=== PATIENT | female | born 1990 | race Caucasian/White ===

== ENCOUNTER 2020-09-09 08:12 | Emergency (ER) | payer OTHER, SELFPAY ==
--- NOTE | ~2020-09-09 | US_ITS ---
EXAMINATION: US ABDOMEN LIMITED CLINICAL INFORMATION: Right upper quadrant pain. COMPARISON: Ultrasound abdomen 12/03/2018 TECHNIQUE: Real-time imaging of the right upper quadrant abdominal viscera. FINDINGS: PANCREAS: Normal. LIVER: Normal. The liver is normal in size. The liver contour is normal. Parenchymal echogenicity is normal. No focal hepatic lesion. There is no intrahepatic biliary duct dilatation seen. GALLBLADDER: Normal. The gallbladder is physiologically distended without evidence of stones, sludge, polyps, wall thickening or pericholecystic fluid. COMMON BILE DUCT: Normal in caliber measuring 0.3 cm in diameter. RIGHT KIDNEY: Normal. No hydronephrosis. No renal calculi or focal parenchymal lesions. The kidney measures 10.7 cm in maximum dimension. FREE FLUID: None. US/US abdomen limited IMPRESSION: Normal study.
[2020-09-09 08:20] VITALS: BP 110/80; BP 130/78; PULSE 60; PULSE 70; RESP 20; TEMP 36.6; O2SAT 100; BMI 34.7
--- NOTE | 2020-09-09 09:10 | ED_ITS ---
HPI - Nausea/Vomiting/Diarrhea General Chief complaint: Nausea/Vomiting/Diarrhea Stated complaint: NAUSEA AND VOMITING Time Seen by Provider: 09/09/20 09:05 Source: patient Mode of arrival: ambulatory Limitations: no limitations History of Present Illness HPI Narrative: 30-year-old female previously healthy here with complaints of nausea, vomiting, upper abdominal pain after eating pizza last evening. No diarrhea, urinary symptoms, fevers, chills. MD elicited complaint: nausea, vomiting and abdominal pain Associated nausea: Yes Related Data Previous Rx's Medication Instructions Recorded omeprazole 40 mg PO DAILY #30 cap 09/09/20 ondansetron 4 mg PO Q6H PRN #10 tab 09/09/20 sucralfate [Carafate] 1 g PO AC #20 tab 09/09/20 Allergies Allergy/AdvReac Type Severity Reaction Status Date / Time bee pollen [BEE STINGS] Allergy Unknown SWELLING Verified 09/09/20 08:24 Review of Systems Review of Systems: Yes all other systems are reviewed and are negative Constitutional: Constitutional: Reports no additional constitutional complaints, Denies body ache(s), Denies chills, Denies fever(s), Denies headache(s) and Denies weakness Eyes: Eyes: Reports no additional eye complaints and Denies change in vision ENT: Reports system reviewed and no additional complaints, except as documented, Denies dizziness, Denies headache(s), Denies nasal congestion, Denies nasal discharge and Denies neck pain Cardiovascular: Cardiovascular: Reports no additional cardiovascular complaints, Denies chest pain, Denies leg edema and Denies dyspnea Respiratory: Respiratory: Reports no additional respiratory complaints, Denies cough and Denies dyspnea Gastrointestinal: Gastrointestinal: Reports no additional gastrointestinal complaints, Reports abdominal pain, Denies diarrhea, Reports nausea and Reports vomiting Genitourinary: Genitourinary: Reports no additional female genitourinary complaints and Denies urinary incontinence Musculoskeletal: Musculoskeletal: Reports no additional musculoskeletal complaints, Denies back pain, Denies arthralgias, Denies joint swelling, Denies neck pain, Denies numbness and Denies tingling Integumentary/Breasts: Skin/Breast: Reports system reviewed and no additional complaints, except as docu and Denies rash Neurologic: Reports system reviewed and no additional complaints, except as documented, Denies Abnormal speech present, Denies dizziness, Denies head ache(s), Denies numbness, Denies tingling and Denies weakness PMFSH Past Medical History Attestation statement: The following information was validated with the patient. Source: old records reviewed and nursing notes reviewed Medical History Asthma Social History Social History Alcohol intake: never Smoking Status: Light tobacco smoker Use of substances other than those prescribed or required for medical reasons: Yes Substance Use Type: Marijuana Advance Directives: Yes Advance Directives Information Provided: No Advance Directives on File: No Physical Exam Vital Signs: Vital Signs: Last Vital Signs Temp 97.9 F 09/09/20 11:43 Pulse 54 09/09/20 13:57 Resp 17 09/09/20 13:57 BP 101/40 L 09/09/20 13:57 Pulse Ox 99 09/09/20 13:57 Body Mass Index 34.7 Const: General: cooperative, healthy appearing, comfortable and no acute distress Orientation/consciousness: patient oriented x3 Limitations: no limitations HENMT: Head: Yes normal to inspection Ears: hearing grossly normal bilaterally General nose exam: Normal external nose present Face and sinus: Yes normal facial exam Mouth: Normal oral and palatal mucosa present Throat: Yes posterior oropharynx normal Eyes: General: appearance normal, both eyes and all related structures Pupils: Equal, round and reactive pupils present Neck: Neck: Yes normal visual inspection Chest: Chest palpation & inspection: normal inspection of the chest Resp: Effort & Inspection: normal respiratory effort Auscultation: clear to auscultation bilaterally Cardio: Rate: regular rate Rhythm: regular rhythm Peripheral pulses: Peripheral pulses 2+ throughout GI: Inspection: Yes normal to inspection Palpation (GI): Soft to palpation and Tenderness to palpation present (GI) in the epigastrum, in the LUQ and in the RUQ; with no rebound tenderness Auscultation: normal bowel sounds Back/Spine/Pelvis: Thoracic/Lumbar Spine: thoracic and lumbar spine normal to inspection Skin: General skin exam: no rashes or lesions noted Neuro: General: patient oriented x3, no focal motor deficits and normal sensation to monofilament Cranial nerves: Yes Equal, round and reactive pupils present Cognition (Neuro): normal cognition Speech: No Abnormal speech present Gait exam (Neuro): Normal gait present Motor exam (neuro): 5/5 motor strength present throughout Extrem: General: Yes normal to inspection Course Course Course Narrative: [age] year female here with nausea, vomiting, upper abdominal pain after eating pizza last evening. No other complaints. On exam has mild tenderness in the upper quadrants bilaterally with no rebound or guarding. Is vomiting. Will need labs, UA, IV fluids, ppi, antiemetic and analgesia and reassessment. 1010-Continued pain and vomiting. Will repeat antiemetic, check US to r/o acute michael. 1200-ultrasound negative for acute cholecystitis. Patient has had additional round of vomiting. 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 She does smoke marijuana daily. She was taking a PPI but is no longer taking this. Will repeat dose of antiemetic and re-assess. 1700-patient feeling improved. Tolerating claudine checo and apple juice. Likely gastritis versus cyclic vomiting. Will restart patient on her PPI per her request. Referred to GI for follow-up Reviewed worrisome signs and symptoms and when to return to the emergency department. Comfortable discharge home. MDM - Nausea/Vomiting/Diarrhea MDM Narrative Medical decision making narrative: Gastritis, gastroenteritis, pancreatitis, cholecystitis Medical Records Attestation: I reviewed the patient's medical records. Lab Data Attestation: I reviewed the patient's lab results. Result diagrams: 09/09/20 09:42 09/09/20 09:42 Labs: Lab Results 09/09/20 09/09/20 09/09/20 Range/Units 09:42 09:42 11:39 WBC 11.6 H (4.8-10.8) X10*3/uL RBC 4.23 (4.20-5.50) X10*6/uL Hgb 13.3 (12.0-16.0) g/dl Hct 38.4 (37-47) % MCV 90.8 (80-98) fL MCH 31.4 (27.0-33.0) pg MCHC 34.6 (31.0-35.0) g/dl RDW 12.3 (11.0-16.0) % Plt Count 181 (160-400) X10*3/uL MPV 12.0 (9.4-12.3) fL Immature Gran % (Auto) 0.3 (0.0-0.4) % Neut % (Auto) 84.6 H (45-73) % Lymph % (Auto) 10.6 L (20-40) % [place] % (Auto) 3.9 (2-11) % Eos % (Auto) 0.3 (0-4) % Baso % (Auto) 0.3 (0-2) % Lymph # (Auto) 1.2 (1.2-4.9) X10*3/uL [place] # (Auto) 0.5 (0.1-1.2) X10*3/uL Eos # (Auto) 0.0 (0.0-0.4) X10*3/uL Baso # (Auto) 0.0 (0.0-0.2) X10*3/uL Abs Immat Gran (auto) 0.03 (0.00-0.03) X10*3/uL Absolute Neuts (auto) 9.8 H (2.0-8.3) X10*3/uL Absolute Nucleated RBC 0.000 (0.0-0.012) X10*3/uL Nucleated RBC % (auto) 0.0 (0.0-0.2) /100WBC Sodium 140 (135-145) mmol/L Potassium 3.7 (3.3-5.1) mmol/L Chloride 107 (96-108) mmol/L Carbon Dioxide 20 L (22-29) mmol/L Anion Gap 17 (12-20) BUN 11 (9-16) mg/dL Creatinine 0.76 (0.5-1.4) mg/dL Estim Creat Clear Calc 114.4 Estimated GFR > 60 Random Glucose 116 H (60-115) mg/dL Calcium 8.9 (8.4-10.2) mg/dL Total Bilirubin 0.4 (0.0-1.0) mg/dL Direct Bilirubin 0.2 (0.0-0.5) mg/dL AST 17 (5-31) U/L ALT 14 (0-31) U/L Alkaline Phosphatase 73 (39-117) U/L Total Protein 7.4 (6.5-8.0) g/dL Albumin 4.4 (3.5-5.0) g/dL Lipase 8 (8-78) U/L Urine Color YELLOW Urine Appearance CLEAR Urine pH 8.5 H (5.0-8.0) Ur Specific [place] 1.020 (1.005-1.025) Urine Protein NEG (NEG-TRACE) MG/DL Urine Glucose (UA) NEG (NEG) MG/DL Urine Ketones NEG (NEG) MG/DL Urine Blood 3+ H (NEG) Urine Nitrite NEG (NEG) Ur Leukocyte Esterase NEG (NEG) Urine RBC 15-29 H (0) /HPF Urine WBC 0-2 (0-4) /HPF Ur Squamous Epith Cells 1+ /LPF Urine Bacteria NONE /LPF Urine Mucus 1+ /LPF Urine Test (NEGATIVE) 09/09/20 Range/Units 11:39 WBC (4.8-10.8) X10*3/uL RBC (4.20-5.50) X10*6/uL Hgb (12.0-16.0) g/dl Hct (37-47) % MCV (80-98) fL MCH (27.0-33.0) pg MCHC (31.0-35.0) g/dl RDW (11.0-16.0) % Plt Count (160-400) X10*3/uL MPV (9.4-12.3) fL Immature Gran % (Auto) (0.0-0.4) % Neut % (Auto) (45-73) % Lymph % (Auto) (20-40) % [place] % (Auto) (2-11) % Eos % (Auto) (0-4) % Baso % (Auto) (0-2) % Lymph # (Auto) (1.2-4.9) X10*3/uL [place] # (Auto) (0.1-1.2) X10*3/uL Eos # (Auto) (0.0-0.4) X10*3/uL Baso # (Auto) (0.0-0.2) X10*3/uL Abs Immat Gran (auto) (0.00-0.03) X10*3/uL Absolute Neuts (auto) (2.0-8.3) X10*3/uL Absolute Nucleated RBC (0.0-0.012) X10*3/uL Nucleated RBC % (auto) (0.0-0.2) /100WBC Sodium (135-145) mmol/L Potassium (3.3-5.1) mmol/L Chloride (96-108) mmol/L Carbon Dioxide (22-29) mmol/L Anion Gap (12-20) BUN (9-16) mg/dL Creatinine (0.5-1.4) mg/dL Estim Creat Clear Calc Estimated GFR Random Glucose (60-115) mg/dL Calcium (8.4-10.2) mg/dL Total Bilirubin (0.0-1.0) mg/dL Direct Bilirubin (0.0-0.5) mg/dL AST (5-31) U/L ALT (0-31) U/L Alkaline Phosphatase (39-117) U/L Total Protein (6.5-8.0) g/dL Albumin (3.5-5.0) g/dL Lipase (8-78) U/L Urine Color Urine Appearance Urine pH (5.0-8.0) Ur Specific [place] (1.005-1.025) Urine Protein (NEG-TRACE) MG/DL Urine Glucose (UA) (NEG) MG/DL Urine Ketones (NEG) MG/DL Urine Blood (NEG) Urine Nitrite (NEG) Ur Leukocyte Esterase (NEG) Urine RBC (0) /HPF Urine WBC (0-4) /HPF Ur Squamous Epith Cells /LPF Urine Bacteria /LPF Urine Mucus /LPF Urine Test NEGATIVE (NEGATIVE) Imaging Data US - abdomen: Attestation: I personally reviewed and interpreted this imaging study as follows: Radiologist's impression: XAMINATION: US ABDOMEN LIMITED CLINICAL INFORMATION: Right upper quadrant pain. COMPARISON: Ultrasound abdomen 12/03/2018 TECHNIQUE: Real-time imaging of the right upper quadrant abdominal viscera. FINDINGS: PANCREAS: Normal. LIVER: Normal. The liver is normal in size. The liver contour is normal. Parenchymal echogenicity is normal. No focal hepatic lesion. There is no intrahepatic biliary duct dilatation seen. GALLBLADDER: Normal. The gallbladder is physiologically distended without evidence of stones, sludge, polyps, wall thickening or pericholecystic fluid. COMMON BILE DUCT: Normal in caliber measuring 0.3 cm in diameter. RIGHT KIDNEY: Normal. No hydronephrosis. No renal calculi or focal parenchymal lesions. The kidney measures 10.7 cm in maximum dimension. FREE FLUID: None. US/US abdomen limited IMPRESSION: Normal study. Discharge Plan Discharge Clinical Impression: Gastritis Qualifiers: Gastritis type: unspecified gastritis Chronicity: acute Gastritis bleeding: without bleeding Qualified Code(s): K29.00 - Acute gastritis without bleeding Patient Disposition: Home, Self-Care Instructions: Gastritis (ED) Additional Instructions: Start with clear liquids then advance diet as tolerated Follow-up with gi Prescriptions: New omeprazole 40 mg capsule,delayed release(DR/EC) 40 mg PO DAILY Qty: 30 RF: 0 sucralfate [Carafate] 1 gram tablet 1 g PO AC Qty: 20 RF: 0 ondansetron 4 mg tablet,disintegrating 4 mg PO Q6H PRN (Reason: nausea and vomiting) Qty: 10 RF: 0 Referrals: Christin Otero MD [Physician] - 2 days Interventions: ED Discharge Assessment Last Done: 09/09/20 17:22 Discharge Date/Time: 09/09/20 17:24
[2020-09-09] MEDS: ondansetron HCL 4 MG/2 ML VIAL IVPUSH (09:23)
[2020-09-09] MEDS: 0.9 % Sodium Chloride 1,000 ML 999 ML IV (09:23)
[2020-09-09] MEDS: Famotidine/PF 20 MG/2 ML VIAL IVPUSH (09:24)
[2020-09-09] MEDS: Morphine Sulfate 2 MG/ML CARTRIDGE IVPUSH (09:24)
[2020-09-09 09:47] LABS: MANUAL DIFF FLAG NO
[2020-09-09 09:53] LABS: Basophils Percent Auto 0.3 % (0-2); Eosinophils Percent Auto 0.3 % (0-4); Hematocrit 38.4 % (37-47); Hemoglobin 13.3 g/dl (12.0-16.0); Imm Gran Abs Auto 0.03 X10*3/uL (0.00-0.03); Imm Gran Pct Auto 0.3 % (0.0-0.4); Lymphocytes Absolute Auto 1.2 X10*3/uL (1.2-4.9); Lymphocytes Percent Auto 10.6 % (20-40); Mean Corpuscular HGB Conc 34.6 g/dl (31.0-35.0); Mean Corpuscular Hemoglobin 31.4 pg (27.0-33.0); Mean Corpuscular Volume 90.8 fL (80-98); Monocytes Absolute Auto 0.5 X10*3/uL (0.1-1.2); Monocytes Percent Auto 3.9 % (2-11); Neutrophils Absolute Auto 9.8 X10*3/uL (2.0-8.3); Neutrophils Percent Auto 84.6 % (45-73); Platelet Count 181 X10*3/uL (160-400); Red Blood Count 4.23 X10*6/uL (4.20-5.50); Red Cell Distribution Width 12.3 % (11.0-16.0); White Blood Count 11.6 X10*3/uL (4.8-10.8)
[2020-09-09 10:21] LABS: Alanine Aminotransferase 14 U/L (0-31); Albumin Level 4.4 g/dL (3.5-5.0); Alkaline Phosphatase 73 U/L (39-117); Anion Gap 17 (12-20); Aspartate Amino Transferase 17 U/L (5-31); Bilirubin Direct 0.2 mg/dL (0.0-0.5); Bilirubin Total 0.4 mg/dL (0.0-1.0); Blood Urea Nitrogen 11 mg/dL (9-16); Calcium 8.9 mg/dL (8.4-10.2); Carbon Dioxide 20 mmol/L (22-29); Chloride 107 mmol/L (96-108); Creatinine Clr Calc Pharmacy 114.4; Estimated Glomerular Filt Rate > 60; Glucose Random 116 mg/dL (60-115); Lipase 8 U/L (8-78); Potassium 3.7 mmol/L (3.3-5.1); Sodium 140 mmol/L (135-145); Total Protein 7.4 g/dL (6.5-8.0)
[2020-09-09] MEDS: diphenhydrAMINE HCL 50 MG/ML VIAL 25 MG IVPUSH (10:31)
[2020-09-09] MEDS: Metoclopramide HCl 10 MG/2 ML VIAL IVPUSH (10:32)
--- NOTE | 2020-09-09 10:34 | PC.NURSE ---
s/P initial med intervention pt continues to c/o abd discomfort and vomiting noted, nasir [employer] aware, more meds ordered/given. New order for abd u/s
[2020-09-09 11:43] VITALS: BP 142/73; PULSE 52; RESP 18; TEMP 36.6; O2SAT 100
[2020-09-09 11:54] LABS: Glucose Urine UA NEG (NEG); Leukocyte Esterase Urine NEG (NEG); Nitrite Urine NEG (NEG); PH 8.5 (5.0-8.0); Urine Blood 3+ (NEG); Urine Ketones NEG (NEG); Urine Protein NEG (NEG-TRACE)
[2020-09-09 11:57] LABS: Color Urine YELLOW; UPreg QC Valid YES; Urine Pregnancy NEGATIVE (NEGATIVE)
[2020-09-09 11:58] LABS: Appearance Urine CLEAR
[2020-09-09 12:02] LABS: Mucus Urine 1+ /LPF; Squamous Epithelial Cell Urine 1+ /LPF; WBC Urine 0-2 /HPF (0-4)
[2020-09-09] MEDS: LORazepam 2 MG/ML VIAL 1 MG IVPUSH (12:16)
[2020-09-09] MEDS: Haloperidol Lactate 5 MG/ML VIAL 1 MG IVPUSH (12:17)
--- NOTE | 2020-09-09 12:18 | PC.NURSE ---
pt medicated per order and re-educated about her iv access and to attempt to keep hand straight to let ivf run, will continue to monitor.
[2020-09-09 13:57] VITALS: BP 101/40; PULSE 54; RESP 17; O2SAT 99
--- NOTE | 2020-09-09 13:57 | PC.NURSE ---
patient currently sleeping, vitals wnl, will continue to monitor.
== END 2020-09-09 17:24 | disposition home or self-care (01) ==
PROVIDERS: Nurse Practitioner Family; Emergency Provider Internal Medicine; PCP Internal Medicine
DX: K29.00 Acute gastritis without bleeding (principal); R11.2 Nausea with vomiting, unspecified; R10.11 Right upper quadrant pain; F12.90 Cannabis use, unspecified, uncomplicated; F17.200 Nicotine dependence, unspecified, uncomplicated; Z79.899 Other long term (current) drug therapy; Z71.6 Tobacco abuse counseling
CPT/HCPCS: 36415; 76705; 80048; 80076; 81001; 81025; 83690; 85025; 96365; 96375; 99284; J1200; J2060; J2270; J2405; J2765

== ENCOUNTER 2020-11-20 09:26 | Emergency (ER) | payer OTHER, SELFPAY ==
--- NOTE | ~2020-11-20 | CT_ITS ---
EXAMINATION: CT ABDOMEN AND PELVIS WITH CONTRAST CLINICAL INFORMATION: epigastric pain, hematemesis, possible Lucero Kessler tear COMPARISON: None TECHNIQUE: Multidetector volumetric images were obtained from the superior aspect of the liver through the pubic symphysis following administration 85 mL of Omnipaque 350 intravenous contrast. Sagittal and coronal reformatted images were obtained on the technologist's workstation. Oral contrast: No This CT examination was performed using dose optimization techniques as appropriate, variously including the following: *Automated exposure control *Adjustment of mA and/or kV according to patient size (this includes techniques or standardized protocols for targeted exams where dose is matched to indication/reason for exam; i.e. extremities or head) *Use of iterative reconstruction technique DLP: 673 mGy-cm FINDINGS: LUNG BASES: The visualized lung bases are unremarkable. LIVER, GALLBLADDER, AND BILIARY TREE: The liver is normal in size, shape, and attenuation. No focal hepatic lesion or biliary ductal dilatation is present. The gallbladder is unremarkable with no evidence of radiopaque gallstones, gallbladder wall thickening, or obvious pericholecystic inflammatory changes. PANCREAS: Unremarkable. SPLEEN: Unremarkable. ADRENAL GLANDS: Unremarkable. KIDNEYS AND URETERS: The kidneys are normal in size, shape, and attenuation. No hydronephrosis, hydroureter, or calculi seen. No perinephric stranding. BLADDER: Unremarkable. GASTROINTESTINAL TRACT: The small and large bowel are unremarkable. The appendix is unremarkable. ABDOMINAL WALL: No significant hernia is appreciated. LYMPH NODES: Normal. VASCULAR: Unremarkable. PELVIC VISCERA: Uterus is anteverted. Small volume of fluid in the cul-de-sac which can be physiologic. There is no adnexal abnormality. OSSEOUS STRUCTURES: Unremarkable. CT/CT abdomen pelvis w con IMPRESSION: Normal CT scan abdomen pelvis.
--- NOTE | ~2020-11-20 | US_ITS ---
EXAMINATION: US ABDOMEN COMPLETE CLINICAL INFORMATION: Nausea and vomiting and upper abdominal pain. COMPARISON: Abdominal ultrasound dated 09/09/2020. TECHNIQUE: Real-time imaging of the abdominal viscera. FINDINGS: PANCREAS: Visualized portions unremarkable. ABDOMINAL AORTA: Visualized portions unremarkable. INFERIOR VENA CAVA: Visualized portions unremarkable. LIVER: Unremarkable. GALLBLADDER: Unremarkable. COMMON BILE DUCT: Normal in caliber measuring 0.4 cm in diameter. RIGHT KIDNEY: 10.1 cm. Unremarkable. LEFT KIDNEY: 10.0 cm. Unremarkable. SPLEEN: 11.0 cm. Unremarkable. FREE FLUID: None. US/US abdomen complete IMPRESSION: Unremarkable abdominal ultrasound. No significant change.
[2020-11-20 09:34] VITALS: BP 131/91; BP 143/69; PULSE 70; PULSE 75; RESP 18; TEMP 36.6; O2SAT 100; BMI 35.4
[2020-11-20] MEDS: Famotidine/PF 20 MG/2 ML VIAL IVPUSH (11:14)
[2020-11-20] MEDS: Ketorolac Tromethamine 30 MG/ML VIAL IVPUSH (11:14)
[2020-11-20] MEDS: 0.9 % Sodium Chloride 1,000 ML 999 ML IVCONT (11:14)
[2020-11-20] MEDS: Metoclopramide HCl 10 MG/2 ML VIAL IVPUSH (11:14)
[2020-11-20] MEDS: diphenhydrAMINE HCL 50 MG/ML VIAL IVPUSH (11:14)
--- NOTE | 2020-11-20 11:28 | ED_ITS ---
HPI - Abdominal Pain General Chief Complaint: Nausea/Vomiting/Diarrhea Stated Complaint: NAUSEA/VOMITING Time Seen by Provider: 11/20/20 09:31 Source: patient and EMS Mode of arrival: EMS Limitations: no limitations History of Present Illness HPI narrative: 30-year-old female with a past medical history of cannabinoid hyperemesis syndrome, anxiety, anemia and asthma presenting to the ED with complaints of sudden onset of nausea/vomiting with epigastric abdominal pain that started this morning. She reports she took DayQuil due to she was feeling nasal congestion. Denies any fevers, lightheadedness, dizziness, black or bloody emesis, chest pain or shortness of breath, radiation of the abdominal pain, back pain, dysuria, hematuria, black or bloody stools, diarrhea constipation, recent travel or sick contacts or any other symptoms complaints or concerns at this time. MD elicited complaint: abdominal pain Pertinent past history: other (Cannabinoid hyperemesis syndrome) Onset (ago): minute(s) (Prior to arrival) Pain Consistency: constant Location: epigastric Severity: moderate Quality: aching Radiation: none Migration to: no migration Exacerbating factors: vomiting Relieving factors: nothing Associated symptoms: nausea and vomiting Treatments prior to arrival: other (Received Zofran via EMS no improvement in symptoms) Related Data Home Medications Medication Instructions Recorded Confirmed albuterol sulfate 2 puff INHALATION Q4H PRN 11/20/20 11/20/20 famotidine 20 mg PO BID 11/20/20 11/20/20 fluoxetine 20 mg PO DAILY 11/20/20 11/20/20 hydroxyzine pamoate 25 mg PO TID PRN 11/20/20 11/20/20 loratadine [Allergy Relief 10 mg PO DAILY 11/20/20 11/20/20 (loratadine)] nortriptyline 10 mg PO BEDTIME 11/20/20 11/20/20 Previous Rx's Medication Instructions Recorded omeprazole 20 mg PO DAILY #30 cap 11/20/20 Allergies Allergy/AdvReac Type Severity Reaction Status Date / Time bee pollen [BEE STINGS] Allergy Unknown SWELLING Verified 09/09/20 08:24 Review of Systems Review of Systems Constitutional : No Weight loss, No Fever, No Chills, No Night Sweats, No Fatigue, NoMalaise ENT/Mouth: No ear pain, No sore throat, No Difficulty swallowing Cardiovascular : No Chest Pain, No SOB, No Dyspnea on Exertion, No Orthopnea, NoEdema, No Palpitations Respiratory : No Cough, No Sputum, No Wheezing, No Dyspnea Gastrointestinal : Positive nausea/vomiting/abdominal pain, No Diarrhea, No blood streaked emesis, No coffee-ground emesis, No gross hematemesis, No blood streak stool, No gross hematochezia, No Melena Genitourinary : No irregular bleeding, No Dysuria, No Urinary Frequency, No Hematuria,No Urinary Incontinence, No Urgency, No Flank Pain Musculoskeletal : No joint pain, No Myalgias, No Joint Swelling Skin : No Skin Lesions, No rash Neuro : No Weakness, No Numbness, No Paresthesias, No Loss of Consciousness, NoDizziness, No Headache Psych : No Social Issues, Heme/Lymph: No Bruising, No Bleeding,No Lymphadenopathy Endocrine : No Polyuria, No Polydipsia, No Temperature Intolerance Yes all other systems are reviewed and are negative Physical Exam Vital Signs: Vital Signs: Last Vital Signs Temp 98.4 F 11/20/20 14:51 Pulse 61 11/20/20 14:51 Resp 18 11/20/20 14:51 BP 141/76 H 11/20/20 14:51 Pulse Ox 98 11/20/20 14:51 Body Mass Index 35.4 vital signs have been reviewed as normal and appeared to be correct. Blood pressure hypertensive 143/69. Heart rate normal. Respiration rate normal. Temperature normal. Oxygen saturation normal. Appearance: Alert. Oriented X3. Anxious otherwise No other acute distress. Head: Normal external exam. Normocephalic. Eyes: PERRLA. EOMI. Conjunctiva and sclera normal. Eyelids normal. ENT: Pharynx normal. Uvula midline. Moist mucous membranes. No trismus noted. No drooling noted. No muffled voice noted. Neck: Normal inspection. Neck supple. FROM. No adenopathy. No meningeal signs. CVS: Normal heart rate and rhythm. Heart sound normal. No murmurs noted. Pulses normal throughout. Respiratory: No respiratory distress. Painless inspiration. Breath sounds normal. No wheezes/rales/rhonchi noted. Chest nontender. No accessory muscle usage noted or decreased air movement noted. Abdomen: Soft and moderate tenderness to palpation to epigastric/upper abdomen with guarding. Nondistended. No rigidity. Bowel sounds normal in all 4 quadrants. No distention noted. No organomegaly noted. No visible injury noted. No rebound tenderness. Negative Rovsing sign. Negative obturator's sign. Negative psoas sign. Negative Lui sign. Back: No CVA tenderness. Full range of motion noted. Skin: Skin warm and dry. Normal skin color. Normal skin turgor. No rashes/lesions/lacerations noted. Extremities: Extremities exhibit normal range of motion. Extremities nontender. Neuro: Oriented X 3. No motor deficit. No sensory deficit. Reflexes normal. Normal steady gait. Course Course Course Narrative: 14:10pm - labs return patient with an elevated white blood cell count at 13,000. Otherwise all other labs are within normal limits. Serum quant negative for . - patient told the nurse that she was vomiting dark brown emesis which changed from yellow/orange when she 1st arrived therefore went in and I performed a bedside stool occult and it was positive therefore sent 1 to the lab and it is also positive - therefore her abdomen ultrasound was normal although will obtain a CT scan of abdomen and pelvis with IV contrast in consult with Dr. Kessler gastroenterology for further recommendations. Patient understands agrees with this plan. Reevaluation(s) Reevaluation #1: - I consulted with Dr. Kessler a cashier credit and he recommended a repeat H&H and reported the patient's H&H is stable after the repeat then she can be safely discharged on omeprazole 20 mg daily and can follow-up as an outpatient therefore repeat CBC ordered at this time. - also still pending CT scan abdomen and pelvis with IV contrast. - patient has not vomited since Compazine/Reglan and morphine were given Time: 16:01 Reevaluation #2: - sign out to Dr. Dumont at this time pending repeat H&H in CT scan abdomen pelvis with IV contrast along with p.o. trial Time: 17:48 MDM - Abdominal Pain MDM Narrative Medical decision making narrative: 9:30am - 30-year-old female with a past medical history of cannabinoid hyperemesis syndrome, anxiety, anemia and asthma presenting to the ED with complaints of sudden onset of nausea/vomiting with epigastric abdominal pain that started this morning. Plan: Labs, abd US. Provide a L of IV fluids, 10 mg of Reglan, 50 mg of Benadryl and 30 mg of Toradol then re-evaluate. Medical Records Attestation: I reviewed the patient's medical records. Lab Data Attestation: I reviewed the patient's lab results. Result diagrams: 11/20/20 11:41 11/20/20 11:41 Labs: Lab Results 11/20/20 11/20/20 11/20/20 Range/Units 11:41 11:41 14:47 WBC 13.5 H (4.8-10.8) X10*3/uL RBC 4.51 (4.20-5.50) X10*6/uL Hgb 13.9 (12.0-16.0) g/dl Hct 40.4 (37-47) % MCV 89.6 (80-98) fL MCH 30.8 (27.0-33.0) pg MCHC 34.4 (31.0-35.0) g/dl RDW 12.6 (11.0-16.0) % Plt Count 189 (160-400) X10*3/uL MPV 11.8 (9.4-12.3) fL Immature Gran % (Auto) 0.4 (0.0-0.4) % Neut % (Auto) 87.4 H (45-73) % Lymph % (Auto) 8.3 L (20-40) % Thayer % (Auto) 3.5 (2-11) % Eos % (Auto) 0.1 (0-4) % Baso % (Auto) 0.3 (0-2) % Lymph # (Auto) 1.1 L (1.2-4.9) X10*3/uL Thayer # (Auto) 0.5 (0.1-1.2) X10*3/uL Eos # (Auto) 0.0 (0.0-0.4) X10*3/uL Baso # (Auto) 0.0 (0.0-0.2) X10*3/uL Abs Immat Gran (auto) 0.05 H (0.00-0.03) X10*3/uL Absolute Neuts (auto) 11.8 H (2.0-8.3) X10*3/uL Absolute Nucleated RBC 0.000 (0.0-0.012) X10*3/uL Nucleated RBC % (auto) 0.0 (0.0-0.2) /100WBC Sodium 136 (135-145) mmol/L Potassium 3.4 (3.3-5.1) mmol/L Chloride 104 (96-108) mmol/L Carbon Dioxide 22 (22-29) mmol/L Anion Gap 13 (12-20) BUN 7 L (9-16) mg/dL Creatinine 0.77 (0.5-1.4) mg/dL Estim Creat Clear Calc 114.2 Estimated GFR > 60 Random Glucose 108 (60-115) mg/dL Calcium 9.4 (8.4-10.2) mg/dL Magnesium 1.8 (1.6-2.6) mg/dL Total Bilirubin 0.8 (0.0-1.0) mg/dL AST 15 (5-31) U/L ALT 17 (0-31) U/L Alkaline Phosphatase 72 (39-117) U/L Total Protein 7.8 (6.5-8.0) g/dL Albumin 4.7 (3.5-5.0) g/dL Lipase 7 L (8-78) U/L Beta HCG, Quant < 2 mIU/mL Urine Color Urine Appearance Urine pH (5.0-8.0) Ur Specific [place] (1.005-1.025) Urine Protein (NEG-TRACE) MG/DL Urine Glucose (UA) (NEG) MG/DL Urine Ketones (NEG) MG/DL Urine Blood (NEG) Urine Nitrite (NEG) Ur Leukocyte Esterase (NEG) Urine RBC (0) /HPF Urine WBC (0-4) /HPF Ur Squamous Epith Cells /LPF Urine Bacteria /LPF Stool Occult Blood POSITIVE (NEGATIVE) 11/20/20 Range/Units 14:47 WBC (4.8-10.8) X10*3/uL RBC (4.20-5.50) X10*6/uL Hgb (12.0-16.0) g/dl Hct (37-47) % MCV (80-98) fL MCH (27.0-33.0) pg MCHC (31.0-35.0) g/dl RDW (11.0-16.0) % Plt Count (160-400) X10*3/uL MPV (9.4-12.3) fL Immature Gran % (Auto) (0.0-0.4) % Neut % (Auto) (45-73) % Lymph % (Auto) (20-40) % Thayer % (Auto) (2-11) % Eos % (Auto) (0-4) % Baso % (Auto) (0-2) % Lymph # (Auto) (1.2-4.9) X10*3/uL Thayer # (Auto) (0.1-1.2) X10*3/uL Eos # (Auto) (0.0-0.4) X10*3/uL Baso # (Auto) (0.0-0.2) X10*3/uL Abs Immat Gran (auto) (0.00-0.03) X10*3/uL Absolute Neuts (auto) (2.0-8.3) X10*3/uL Absolute Nucleated RBC (0.0-0.012) X10*3/uL Nucleated RBC % (auto) (0.0-0.2) /100WBC Sodium (135-145) mmol/L Potassium (3.3-5.1) mmol/L Chloride (96-108) mmol/L Carbon Dioxide (22-29) mmol/L Anion Gap (12-20) BUN (9-16) mg/dL Creatinine (0.5-1.4) mg/dL Estim Creat Clear Calc Estimated GFR Random Glucose (60-115) mg/dL Calcium (8.4-10.2) mg/dL Magnesium (1.6-2.6) mg/dL Total Bilirubin (0.0-1.0) mg/dL AST (5-31) U/L ALT (0-31) U/L Alkaline Phosphatase (39-117) U/L Total Protein (6.5-8.0) g/dL Albumin (3.5-5.0) g/dL Lipase (8-78) U/L Beta HCG, Quant mIU/mL Urine Color YELLOW Urine Appearance CLEAR Urine pH >= 9.0 H (5.0-8.0) Ur Specific [place] 1.015 (1.005-1.025) Urine Protein TRACE (NEG-TRACE) MG/DL Urine Glucose (UA) NEG (NEG) MG/DL Urine Ketones NEG (NEG) MG/DL Urine Blood 3+ H (NEG) Urine Nitrite NEG (NEG) Ur Leukocyte Esterase NEG (NEG) Urine RBC 15-29 H (0) /HPF Urine WBC 1-4 (0-4) /HPF Ur Squamous Epith Cells 4+ /LPF Urine Bacteria 2+ /LPF Stool Occult Blood (NEGATIVE) Imaging Data Abdominal ultrasound: Attestation: I personally reviewed and interpreted this imaging study as follows: Radiologist's impression: FINDINGS: PANCREAS: Visualized portions unremarkable. ABDOMINAL AORTA: Visualized portions unremarkable. INFERIOR VENA CAVA: Visualized portions unremarkable. LIVER: Unremarkable. GALLBLADDER: Unremarkable. COMMON BILE DUCT: Normal in caliber measuring 0.4 cm in diameter. RIGHT KIDNEY: 10.1 cm. Unremarkable. LEFT KIDNEY: 10.0 cm. Unremarkable. SPLEEN: 11.0 cm. Unremarkable. FREE FLUID: None. US/US abdomen complete IMPRESSION: Unremarkable abdominal ultrasound. No significant change. Critical Care Time Critical Care Time Critical Care Time: Yes Total Critical Care Time: 60 Attestation: I personally attest to this time spent taking care of the patient Discharge Plan Discharge Clinical Impression: Hematemesis/vomiting blood, Abdominal pain Instructions: Acute Nausea and Vomiting (ED), Abdominal Pain (ED), Hematemesis (ED) Prescriptions: New omeprazole 20 mg capsule,delayed release(DR/EC) 20 mg PO DAILY Qty: 30 RF: 0 No Action famotidine 20 mg tablet 20 mg PO BID RF: 0 nortriptyline 10 mg capsule 10 mg PO BEDTIME RF: 0 albuterol sulfate 90 mcg/actuation HFA aerosol inhaler 2 puff inhalation Q4H PRN (Reason: wheezing) RF: 0 fluoxetine 20 mg capsule 20 mg PO DAILY RF: 0 loratadine [Allergy Relief (loratadine)] 10 mg tablet 10 mg PO DAILY RF: 0 hydroxyzine pamoate 25 mg capsule 25 mg PO TID PRN (Reason: Anxiety) RF: 0 Referrals: Sergio Kessler [Physician] - 2 days Stand Alone Forms: Work/School Release Print Language: Turkish [facility] Past Medical History Attestation statement: The following information was validated with the patient. Medical History Asthma Social History Social History Alcohol intake: never Patient Tobacco Use Status: Never used Tobacco Use of substances other than those prescribed or required for medical reasons: No Substance Use Type: Marijuana Advance Directives: Yes Advance Directives Information Provided: No Advance Directives on File: No Patient : No
[2020-11-20 11:29] VITALS: BP 135/81; PULSE 58; RESP 18; TEMP 36.7; O2SAT 100
[2020-11-20 11:52] LABS: MANUAL DIFF FLAG NO
[2020-11-20 12:01] LABS: Basophils Percent Auto 0.3 % (0-2); Eosinophils Percent Auto 0.1 % (0-4); Hematocrit 40.4 % (37-47); Hemoglobin 13.9 g/dl (12.0-16.0); Imm Gran Abs Auto 0.05 X10*3/uL (0.00-0.03); Imm Gran Pct Auto 0.4 % (0.0-0.4); Lymphocytes Absolute Auto 1.1 X10*3/uL (1.2-4.9); Lymphocytes Percent Auto 8.3 % (20-40); Mean Corpuscular HGB Conc 34.4 g/dl (31.0-35.0); Mean Corpuscular Hemoglobin 30.8 pg (27.0-33.0); Mean Corpuscular Volume 89.6 fL (80-98); Mean Platelet Volume 11.8 fL (9.4-12.3); Monocytes Absolute Auto 0.5 X10*3/uL (0.1-1.2); Monocytes Percent Auto 3.5 % (2-11); Neutrophils Absolute Auto 11.8 X10*3/uL (2.0-8.3); Neutrophils Percent Auto 87.4 % (45-73); Platelet Count 189 X10*3/uL (160-400); Red Blood Count 4.51 X10*6/uL (4.20-5.50); Red Cell Distribution Width 12.6 % (11.0-16.0); White Blood Count 13.5 X10*3/uL (4.8-10.8)
[2020-11-20 12:23] LABS: Alanine Aminotransferase 17 U/L (0-31); Albumin Level 4.7 g/dL (3.5-5.0); Alkaline Phosphatase 72 U/L (39-117); Anion Gap 13 (12-20); Aspartate Amino Transferase 15 U/L (5-31); Bilirubin Total 0.8 mg/dL (0.0-1.0); Blood Urea Nitrogen 7 mg/dL (9-16); Calcium 9.4 mg/dL (8.4-10.2); Carbon Dioxide 22 mmol/L (22-29); Chloride 104 mmol/L (96-108); Creatinine Clr Calc Pharmacy 114.2; Estimated Glomerular Filt Rate > 60; Glucose Random 108 mg/dL (60-115); Magnesium 1.8 mg/dL (1.6-2.6); Potassium 3.4 mmol/L (3.3-5.1); Sodium 136 mmol/L (135-145); Total Protein 7.8 g/dL (6.5-8.0)
[2020-11-20 12:30] LABS: HCG Quantitative < 2 mIU/mL
[2020-11-20 12:47] LABS: Lipase 7 U/L (8-78)
[2020-11-20 14:43] VITALS: RESP 18
[2020-11-20] MEDS: Morphine Sulfate 4 MG/ML CARTRIDGE IVPUSH (14:43)
[2020-11-20] MEDS: Prochlorperazine Edisylate 10 MG/2 ML VIAL IVPUSH (14:43)
[2020-11-20 14:51] VITALS: BP 141/76; PULSE 61; RESP 18; TEMP 36.9; O2SAT 98
--- NOTE | 2020-11-20 15:13 | HE.PHANOTE ---
Pharmacy Consult ? Medication Reconciliation Pharmacy has completed the medication reconciliation and there were no significant medication issues requiring provider attention. Gretchen Lao, PharmD [phone]
[2020-11-20 15:16] LABS: OBS Int Ctl Valid YES; OBS1 POSITIVE (NEGATIVE)
[2020-11-20 15:20] LABS: Glucose Urine UA NEG (NEG); Leukocyte Esterase Urine NEG (NEG); Nitrite Urine NEG (NEG); PH >= 9.0 (5.0-8.0); Specific Gravity - Urine 1.015 (1.005-1.025); Urine Blood 3+ (NEG); Urine Ketones NEG (NEG); Urine Protein TRACE MG/DL (NEG-TRACE)
[2020-11-20 15:44] LABS: Appearance Urine CLEAR; Color Urine YELLOW
[2020-11-20 16:42] LABS: Bacteria Urine 2+ /LPF; Squamous Epithelial Cell Urine 4+ /LPF
[2020-11-20 17:45] LABS: Basophils Percent Auto 0.2 % (0-2); Hematocrit 39.8 % (37-47); Hemoglobin 13.7 g/dl (12.0-16.0); Imm Gran Abs Auto 0.02 X10*3/uL (0.00-0.03); Imm Gran Pct Auto 0.2 % (0.0-0.4); Lymphocytes Absolute Auto 0.6 X10*3/uL (1.2-4.9); Lymphocytes Percent Auto 6.3 % (20-40); MANUAL DIFF FLAG SCAN; Mean Corpuscular HGB Conc 34.4 g/dl (31.0-35.0); Mean Corpuscular Hemoglobin 30.9 pg (27.0-33.0); Mean Corpuscular Volume 89.8 fL (80-98); Mean Platelet Volume 11.9 fL (9.4-12.3); Monocytes Absolute Auto 0.2 X10*3/uL (0.1-1.2); Monocytes Percent Auto 1.7 % (2-11); Neutrophils Percent Auto 91.6 % (45-73); Platelet Count 190 X10*3/uL (160-400); Red Blood Count 4.43 X10*6/uL (4.20-5.50); Red Cell Distribution Width 12.6 % (11.0-16.0); SCAN SMEAR FLAG 1; White Blood Count 8.7 X10*3/uL (4.8-10.8)
[2020-11-20 17:47] LABS: INTERNATIONAL NORM RATIO 1.2 (0.9-1.1); Prothrombin Time 14.8 SEC (10.8-13.0)
[2020-11-20 18:00] VITALS: BP 125/77; PULSE 59; RESP 16; TEMP 36.9; O2SAT 99
[2020-11-20 18:17] LABS: COVID-19 Test Negative (Negative)
[2020-11-20 18:31] LABS: SLIDE REVIEW VERIFIED
[2020-11-20] MEDS: iohexoL 350 MG/ML 100 ML INFUS..BTL IV (21:38)
[2020-11-20] MEDS: Magnesium Hydrox/Alum Hydrox 30 ML ORAL.SUSP PO (22:01)
[2020-11-20] MEDS: Lidocaine HCl Viscous 2 % 15 ML SOLUTION MUCOUS MEM (22:01)
[2020-11-20 22:22] VITALS: BP 127/70; PULSE 55; RESP 16; TEMP 36.6; O2SAT 99
== END 2020-11-20 23:39 | disposition home or self-care (01) ==
PROVIDERS: Physician Assistant Medical; Emergency Provider Emergency Medicine
DX: K92.0 Hematemesis (principal); R19.7 Diarrhea, unspecified; F12.90 Cannabis use, unspecified, uncomplicated; Z79.899 Other long term (current) drug therapy; Z20.822 Contact with and (suspected) exposure to COVID-19
CPT/HCPCS: 36415; 74177; 76700; 80053; 81001; 81003; 82272; 83690; 83735; 84702; 85025; 85610; 87635; 96365; 96375; 99285; J1200; J1885; J2270; J2550; J2765; Q9967

== ENCOUNTER 2021-05-17 10:54 | Emergency (ER) | payer OTHER, SELFPAY ==
--- NOTE | ~2021-05-17 | US_ITS ---
EXAMINATION: US ABDOMEN LIMITED CLINICAL INFORMATION: Upper epigastric and right upper quadrant pain. COMPARISON: CT abdomen pelvis on 12/07/2020, abdominal ultrasound on 11/20/2020 TECHNIQUE: Real-time imaging of the right upper quadrant abdominal viscera. FINDINGS: PANCREAS: Normal. LIVER: Normal. The liver is normal in size. The liver contour is normal. Parenchymal echogenicity is normal. No focal hepatic lesion. There is no intrahepatic biliary duct dilatation seen. GALLBLADDER: Normal. The gallbladder is physiologically distended without evidence of stones, sludge, polyps, wall thickening or pericholecystic fluid. COMMON BILE DUCT: Normal in caliber measuring 0.4 cm in diameter. RIGHT KIDNEY: Normal. No hydronephrosis. No renal calculi or focal parenchymal lesions. The kidney measures 10.6 cm in maximum dimension. FREE FLUID: None. US/US abdomen limited IMPRESSION: Unremarkable right upper quadrant ultrasound.
[2021-05-17 11:01] VITALS: BP 130/84; PULSE 61; O2SAT 100
--- NOTE | 2021-05-17 11:05 | ED_ITS ---
HPI - Nausea/Vomiting/Diarrhea General Chief complaint: Nausea/Vomiting/Diarrhea Stated complaint: Nausea, Flu like symptoms Time Seen by Provider: 05/17/21 10:56 Source: patient and EMS Mode of arrival: EMS History of Present Illness HPI Narrative: 30-year-old female with a past medical history of asthma presenting to the ED complaining nausea, vomiting, epigastric abdominal pain and slight cough since this morning. Denies fever, chills, diarrhea, dysuria/hematuria, SOB/CP MD elicited complaint: nausea, vomiting and abdominal pain Related Data Home Medications Medication Instructions Recorded Confirmed albuterol sulfate 90 mcg/actuation 2 puff INHALATION Q4H PRN 11/20/20 11/20/20 aerosol inhaler famotidine 20 mg tablet 20 mg PO BID 11/20/20 11/20/20 fluoxetine 20 mg capsule 20 mg PO DAILY 11/20/20 11/20/20 hydroxyzine pamoate 25 mg capsule 25 mg PO TID PRN 11/20/20 11/20/20 loratadine 10 mg tablet (Allergy 10 mg PO DAILY 11/20/20 11/20/20 Relief (loratadine)) nortriptyline 10 mg capsule 10 mg PO BEDTIME 11/20/20 11/20/20 Previous Rx's Medication Instructions Recorded omeprazole 20 mg capsule,delayed 20 mg PO DAILY #30 cap 11/20/20 release aluminum-mag hydroxide-simethicone 5 ml PO 5XD PRN #30 ml 05/17/21 200 mg-200 mg-20 mg/5 mL oral susp (Maalox Advanced) famotidine 20 mg tablet (Pepcid) 20 mg PO DAILY #14 tab 05/17/21 ondansetron HCl 4 mg tablet 4 mg PO Q8H PRN #10 tab 05/17/21 (Zofran) Allergies Allergy/AdvReac Type Severity Reaction Status Date / Time bee pollen [BEE STINGS] Allergy Unknown SWELLING Verified 09/09/20 08:24 Review of Systems Review of Systems: Constitutional: No Fever, No Chills, +Fatigue, No Malaise ENT/Mouth: No Ear Pain, No Nasal Congestion, No sore throat, No Rhinorrhea Eyes: No Eye Pain, No Swelling, No Redness Cardiovascular: No Chest Pain, No SOB, No Dyspnea on Exertion, No Orthopnea, No Edema, No Palpitations Respiratory: + Cough, No Dyspnea Gastrointestinal: + Nausea, + Vomiting, No Diarrhea, No Constipation, + Abdominal pain Genitourinary: No Dysuria, No Urinary Frequency, No Hematuria, No Flank Pain, No Urinary Flow Changes, No Hesitancy Musculoskeletal: No joint pain, No Myalgias, No Joint Swelling Skin: No Skin Lesions, No rash Neuro: No Weakness, No Numbness, No Headache Yes all other systems are reviewed and are negative [facility] Past Medical History Attestation statement: The following information was validated with the patient. Medical History Asthma Social History Social History Alcohol intake: unknown Patient Tobacco Use Status: Never used Tobacco Use of substances other than those prescribed or required for medical reasons: Unknown Substance Use Type: Marijuana Advance Directives: No Advance Directives Information Provided: No Patient : No Physical Exam Vital Signs: Vital Signs: Last Vital Signs Temp 98.8 F 05/17/21 11:28 Pulse 58 05/17/21 11:28 Resp 18 05/17/21 11:28 BP 158/78 H 05/17/21 11:28 Pulse Ox 100 05/17/21 11:28 Body Mass Index 38.9 Const: General: cooperative, healthy appearing and no acute distress Orientation/consciousness: patient oriented x3 Limitations: no limitations HENMT: Head: Yes normal to inspection and Yes atraumatic Ears: hearing grossly normal bilaterally General nose exam: Normal external nose present Face and sinus: Yes normal facial exam Eyes: General: appearance normal, both eyes and all related structures EOM: EOMs intact bilaterally Neck: Neck: Yes normal visual inspection Resp: Effort & Inspection: normal respiratory effort Auscultation: clear to auscultation bilaterally, no rales, no rhonchi and no wheezes Cardio: Rate: regular rate Heart sounds: S1 normal heart sound present and S2 normal heart sound present GI: Inspection: Yes normal to inspection Palpation (GI): Soft to palpation, Tenderness to palpation present (GI) in the epigastrum, no guarding and not rigid : General: Yes no CVA tenderness Back/Spine/Pelvis: Back: no CVA tenderness Skin: Rashes: no rashes Wounds: no wounds Neuro: General: patient oriented x3 Gait exam (Neuro): Normal gait present Extrem: General: Yes normal to inspection and Yes no pedal edema Course Course Course Narrative: -1314--mild leukocytosis of 10.9, magnesium mildly low at 1.5 > p.o. repletion ordered, labs otherwise unremarkable -UA with chronic RBCs. COVID-19/influenza/RSV negative -1338--labs unremarkable. Results discussed will p.o. challenge in re-evaluate -1355--patient is still reporting persistent nausea/chills, abdomen soft with epigastric/RUQ tenderness to palpation obtain right upper quadrant, Benadryl and Reglan ordered -1455--US abdomen limited IMPRESSION: Unremarkable right upper quadrant ultrasound. -patient was able to tolerate p.o. water and saltines without vomiting. Discussed worrisome signs and symptoms and strict return precautions and needed follow-up with PCP/GI MDM - Nausea/Vomiting/Diarrhea MDM Narrative Medical decision making narrative: 30-year-old female with a past medical history of asthma presenting to the ED complaining nausea, vomiting, epigastric abdominal pain and slight cough since this morning. On exam vital signs stable, NAD/nontoxic, lungs CTA, abdomen soft with mild epigastric TTP, no rebound or guarding, no CVAT. Concern for viral syndrome/COVID-19 vs gastritis/GERD vs gastroenteritis vs pancreatitis. Lower concern for cholecystitis/cholelithia sis/appendicitis or diverticulitis Plan: COVID-19 testing, labs, UA, symptomatic remedies, p.o. challenge, re- evaluate Medical Records Attestation: I reviewed the patient's medical records. Lab Data Attestation: I reviewed the patient's lab results. Result diagrams: 05/17/21 12:18 05/17/21 12:18 Labs: Lab Results 05/17/21 05/17/21 05/17/21 Range/Units 11:15 11:15 11:15 WBC (4.8-10.8) X10*3/uL RBC (4.20-5.50) X10*6/uL Hgb (12.0-16.0) g/dl Hct (37.0-47.0) % MCV (80.0-98.0) fL MCH (27.0-33.0) pg MCHC (31.0-35.0) g/dl RDW (11.0-16.0) % Plt Count (160-400) X10*3/uL MPV (9.4-12.3) fL Immature Gran % (Auto) (0.0-0.4) % Neut % (Auto) (45-73) % Lymph % (Auto) (20-40) % [place] % (Auto) (2-11) % Eos % (Auto) (0-4) % Baso % (Auto) (0-2) % Lymph # (Auto) (1.2-4.9) X10*3/uL [place] # (Auto) (0.1-1.2) X10*3/uL Eos # (Auto) (0.0-0.4) X10*3/uL Baso # (Auto) (0.0-0.2) X10*3/uL Abs Immat Gran (auto) (0.00-0.03) X10*3/uL Absolute Neuts (auto) (2.0-8.3) x10*3/uL Absolute Nucleated RBC (0.0-0.012) X10*3/uL Nucleated RBC % (auto) (0.0-0.2) /100WBC Sodium (135-145) mmol/L Potassium (3.3-5.1) mmol/L Chloride (96-108) mmol/L Carbon Dioxide (22-29) mmol/L Anion Gap (12-20) BUN (9-16) mg/dL Creatinine (0.5-1.4) mg/dL Estim Creat Clear Calc Estimated GFR Random Glucose (60-115) mg/dL Calcium (8.4-10.2) mg/dL Magnesium (1.6-2.6) mg/dL Total Bilirubin (0.0-1.0) mg/dL Direct Bilirubin (0.0-0.5) mg/dL AST (5-31) U/L ALT (0-31) U/L Alkaline Phosphatase (39-117) U/L Total Protein (6.5-8.0) g/dL Albumin (3.5-5.0) g/dL Lipase (8-78) U/L Urine Color YELLOW Urine Appearance CLEAR Urine pH 8.0 (5.0-8.0) Ur Specific [place] 1.020 (1.005-1.025) Urine Protein TRACE (NEG-TRACE) MG/DL Urine Glucose (UA) NEG (NEG) MG/DL Urine Ketones NEG (NEG) MG/DL Urine Blood 3+ H (NEG) Urine Nitrite NEG (NEG) Ur Leukocyte Esterase NEG (NEG) Urine RBC 15-29 H (0) /HPF Urine WBC 0 (0-4) /HPF Ur Squamous Epith Cells 1+ /LPF Urine Bacteria 1+ /LPF Urine Test NEGATIVE (NEGATIVE) Influenza Type A (PCR) NEGATIVE (Negative) Influenza Type B (PCR) NEGATIVE (Negative) RSV RNA Qual (PCR) NEGATIVE (Negative) SARS-CoV-2 RNA (RT-PCR) NEGATIVE (Negative) 05/17/21 05/17/21 Range/Units 12:18 12:18 WBC 10.9 H (4.8-10.8) X10*3/uL RBC 4.41 (4.20-5.50) X10*6/uL Hgb 13.1 (12.0-16.0) g/dl Hct 38.8 (37.0-47.0) % MCV 88.0 (80.0-98.0) fL MCH 29.7 (27.0-33.0) pg MCHC 33.8 (31.0-35.0) g/dl RDW 13.1 (11.0-16.0) % Plt Count 220 (160-400) X10*3/uL MPV 11.2 (9.4-12.3) fL Immature Gran % (Auto) 0.3 (0.0-0.4) % Neut % (Auto) 89.8 H (45-73) % Lymph % (Auto) 7.9 L (20-40) % [place] % (Auto) 1.7 L (2-11) % Eos % (Auto) 0.0 (0-4) % Baso % (Auto) 0.3 (0-2) % Lymph # (Auto) 0.9 L (1.2-4.9) X10*3/uL [place] # (Auto) 0.2 (0.1-1.2) X10*3/uL Eos # (Auto) 0.0 (0.0-0.4) X10*3/uL Baso # (Auto) 0.0 (0.0-0.2) X10*3/uL Abs Immat Gran (auto) 0.03 (0.00-0.03) X10*3/uL Absolute Neuts (auto) 9.8 H (2.0-8.3) x10*3/uL Absolute Nucleated RBC 0.000 (0.0-0.012) X10*3/uL Nucleated RBC % (auto) 0.0 (0.0-0.2) /100WBC Sodium 137 (135-145) mmol/L Potassium 3.9 (3.3-5.1) mmol/L Chloride 104 (96-108) mmol/L Carbon Dioxide 22 (22-29) mmol/L Anion Gap 15 (12-20) BUN 10 (9-16) mg/dL Creatinine 0.78 (0.5-1.4) mg/dL Estim Creat Clear Calc 118.7 Estimated GFR > 60 Random Glucose 122 H (60-115) mg/dL Calcium 9.6 (8.4-10.2) mg/dL Magnesium 1.5 L (1.6-2.6) mg/dL Total Bilirubin 0.4 (0.0-1.0) mg/dL Direct Bilirubin 0.2 (0.0-0.5) mg/dL AST 16 (5-31) U/L ALT 15 (0-31) U/L Alkaline Phosphatase 80 (39-117) U/L Total Protein 8.0 (6.5-8.0) g/dL Albumin 4.7 (3.5-5.0) g/dL Lipase 5 L (8-78) U/L Urine Color Urine Appearance Urine pH (5.0-8.0) Ur Specific [place] (1.005-1.025) Urine Protein (NEG-TRACE) MG/DL Urine Glucose (UA) (NEG) MG/DL Urine Ketones (NEG) MG/DL Urine Blood (NEG) Urine Nitrite (NEG) Ur Leukocyte Esterase (NEG) Urine RBC (0) /HPF Urine WBC (0-4) /HPF Ur Squamous Epith Cells /LPF Urine Bacteria /LPF Urine Test (NEGATIVE) Influenza Type A (PCR) (Negative) Influenza Type B (PCR) (Negative) RSV RNA Qual (PCR) (Negative) SARS-CoV-2 RNA (RT-PCR) (Negative) Discharge Plan Discharge Clinical Impression: Nausea & vomiting Qualifiers: Vomiting type: unspecified Vomiting Intractability: non-intractable Qualified Code(s): R11.2 - Nausea with vomiting, unspecified Patient Disposition: Home, Self-Care Instructions: Acute Nausea and Vomiting (ED) Additional Instructions: Your blood work and urine were reassuring today in the emergency department Your ultrasound was unremarkable Zofran is at antinausea medication, take as needed Pepcid and Maalox will help with acid reduction/abdominal discomfort, take as prescribed Make sure staying hydrated If her symptoms persist or worsen, pain or nausea comes unbearable, you are unable to eat or drink please return to the emergency department Prescriptions: New ondansetron HCl [Zofran] 4 mg tablet 4 mg PO Q8H PRN (Reason: nausea and vomiting) Qty: 10 RF: 0 famotidine [Pepcid] 20 mg tablet 20 mg PO DAILY Qty: 14 RF: 0 alum-mag hydroxide-simeth [Maalox Advanced] 200-200-20 mg/5 mL suspension 5 ml PO 5XD PRN (Reason: dyspepsia) Qty: 30 RF: 0 No Action famotidine 20 mg tablet 20 mg PO BID RF: 0 nortriptyline 10 mg capsule 10 mg PO BEDTIME RF: 0 albuterol sulfate 90 mcg/actuation HFA aerosol inhaler 2 puff inhalation Q4H PRN (Reason: wheezing) RF: 0 fluoxetine 20 mg capsule 20 mg PO DAILY RF: 0 loratadine [Allergy Relief (loratadine)] 10 mg tablet 10 mg PO DAILY RF: 0 hydroxyzine pamoate 25 mg capsule 25 mg PO TID PRN (Reason: Anxiety) RF: 0 omeprazole 20 mg capsule,delayed release(DR/EC) 20 mg PO DAILY Qty: 30 RF: 0 Referrals: Manuelito Negron MD [Primary Care Provider] - 2 days
[2021-05-17 11:23] LABS: Appearance Urine CLEAR; Color Urine YELLOW; Glucose Urine UA NEG (NEG); Leukocyte Esterase Urine NEG (NEG); Nitrite Urine NEG (NEG); UACC Culture Trigger NO; Urine Blood 3+ (NEG); Urine Ketones NEG (NEG); Urine Protein TRACE MG/DL (NEG-TRACE)
[2021-05-17] MEDS: 0.9 % Sodium Chloride 1,000 ML 999 ML IVCONT (11:23)
[2021-05-17] MEDS: ondansetron HCL 4 MG/2 ML VIAL IVPUSH (11:24)
[2021-05-17] MEDS: Famotidine/PF 20 MG/2 ML VIAL IVPUSH (11:25)
[2021-05-17 11:28] VITALS: BP 158/78; PULSE 58; RESP 18; TEMP 37.1; O2SAT 100
[2021-05-17] MEDS: Magnesium Hydrox/Alum Hydrox 30 ML ORAL.SUSP PO (11:31)
[2021-05-17] MEDS: Lidocaine HCl Viscous 2 % 15 ML SOLUTION MUCOUS MEM (11:31)
[2021-05-17 11:32] VITALS: BMI 38.9
[2021-05-17 11:37] LABS: Bacteria Urine 1+ /LPF; Squamous Epithelial Cell Urine 1+ /LPF; WBC Urine 0 /HPF (0-4)
[2021-05-17 12:02] LABS: Influenza A PCR NEGATIVE (Negative); Influenza B PCR NEGATIVE (Negative); Resp Syncy Virus RNA Qual PCR NEGATIVE (Negative); SARS COV2 PCR INHOUSE NEGATIVE (Negative)
[2021-05-17 12:24] LABS: Basophils Percent Auto 0.3 % (0-2); Hematocrit 38.8 % (37.0-47.0); Hemoglobin 13.1 g/dl (12.0-16.0); Imm Gran Abs Auto 0.03 X10*3/uL (0.00-0.03); Imm Gran Pct Auto 0.3 % (0.0-0.4); Lymphocytes Absolute Auto 0.9 X10*3/uL (1.2-4.9); Lymphocytes Percent Auto 7.9 % (20-40); MANUAL DIFF FLAG NO; Mean Corpuscular HGB Conc 33.8 g/dl (31.0-35.0); Mean Corpuscular Hemoglobin 29.7 pg (27.0-33.0); Mean Platelet Volume 11.2 fL (9.4-12.3); Monocytes Absolute Auto 0.2 X10*3/uL (0.1-1.2); Monocytes Percent Auto 1.7 % (2-11); Neutrophils Absolute Auto 9.8 x10*3/uL (2.0-8.3); Neutrophils Percent Auto 89.8 % (45-73); Platelet Count 220 X10*3/uL (160-400); Red Blood Count 4.41 X10*6/uL (4.20-5.50); Red Cell Distribution Width 13.1 % (11.0-16.0); White Blood Count 10.9 X10*3/uL (4.8-10.8)
[2021-05-17 12:51] LABS: Alanine Aminotransferase 15 U/L (0-31); Albumin Level 4.7 g/dL (3.5-5.0); Alkaline Phosphatase 80 U/L (39-117); Anion Gap 15 (12-20); Aspartate Amino Transferase 16 U/L (5-31); Bilirubin Direct 0.2 mg/dL (0.0-0.5); Bilirubin Total 0.4 mg/dL (0.0-1.0); Blood Urea Nitrogen 10 mg/dL (9-16); Calcium 9.6 mg/dL (8.4-10.2); Carbon Dioxide 22 mmol/L (22-29); Chloride 104 mmol/L (96-108); Creatinine Clr Calc Pharmacy 118.7; Estimated Glomerular Filt Rate > 60; Glucose Random 122 mg/dL (60-115); Lipase 5 U/L (8-78); Magnesium 1.5 mg/dL (1.6-2.6); Potassium 3.9 mmol/L (3.3-5.1); Sodium 137 mmol/L (135-145)
[2021-05-17 12:54] LABS: Urine Pregnancy NEGATIVE (NEGATIVE)
[2021-05-17 12:55] LABS: UPreg QC Valid YES
[2021-05-17] MEDS: diphenhydrAMINE HCL 50 MG/ML VIAL 12.5 MG IVPUSH (13:17)
[2021-05-17] MEDS: Metoclopramide HCl 10 MG/2 ML VIAL IVPUSH (13:18)
[2021-05-17] MEDS: Magnesium Oxide 400 MG TABLET PO (14:56)
== END 2021-05-17 15:26 | disposition home or self-care (01) ==
PROVIDERS: Physician Assistant; Emergency Provider Emergency Medicine; PCP Internal Medicine
DX: R11.2 Nausea with vomiting, unspecified (principal); R10.13 Epigastric pain; Z20.822 Contact with and (suspected) exposure to COVID-19; R53.83 Other fatigue; F12.90 Cannabis use, unspecified, uncomplicated
CPT/HCPCS: 0241U; 36415; 76705; 80048; 80076; 81001; 81025; 83690; 83735; 85025; 96361; 96374; 96375; 99284; J1200; J2405; J2765

== ENCOUNTER 2021-06-22 08:37 | Emergency (ER) | payer OTHER, SELFPAY ==
--- NOTE | ~2021-06-22 | US_ITS ---
EXAMINATION: US OBSTETRICAL ULTRASOUND CLINICAL INFORMATION: Nausea and vomiting. Rule out ectopic . COMPARISON: None. LMP: 05/12/2021. Gestational age by maternal dates is 5 weeks 6 days. Estimated date of delivery by maternal dates is 02/16/2022. TECHNIQUE: Transabdominal and transvaginal first trimester OB ultrasound FINDINGS: There is an intrauterine gestational sac. [place]-rump length measures 0.17 cm which is too small to calculate gestational age. heart activity can be seen. There is a yolk sac. The right maternal ovary measures 3 x 2.5 x 2.2 cm. There is a 2 x 1.8 x 1.5 cm complex right ovarian cyst. The left ovary measures 2.4 x 2 x 1.9 cm. There is a 0.9 cm simple left ovarian cyst. There is no fluid in the pelvis. US/US OB <= 14 weeks fetus IMPRESSION: Single intrauterine gestation. pole measures 0.17 cm which is too small to calculate gestational age.
[2021-06-22 08:42] VITALS: BP 122/84; PULSE 78; O2SAT 100
[2021-06-22 08:53] VITALS: BP 108/73; PULSE 57; RESP 16; TEMP 36.3; O2SAT 99; BMI 36.3
[2021-06-22 09:25] LABS: UPreg QC Valid YES; Urine Pregnancy POSITIVE (NEGATIVE)
[2021-06-22 09:26] LABS: Appearance Urine HAZY; Color Urine YELLOW; Glucose Urine UA NEG (NEG); Leukocyte Esterase Urine NEG (NEG); Nitrite Urine NEG (NEG); PH 8.5 (5.0-8.0); UACC Culture Trigger NO; Urine Blood 2+ (NEG); Urine Ketones 15 MG/DL (NEG)
[2021-06-22 09:28] LABS: Urine Protein 1+ MG/DL (NEG-TRACE)
[2021-06-22 09:41] LABS: Amorphous Sediment Urine 4+ /LPF; Squamous Epithelial Cell Urine 2+ /LPF; WBC Urine 0 /HPF (0-4)
--- NOTE | 2021-06-22 11:29 | ED_ITS ---
HPI - Nausea/Vomiting/Diarrhea General Chief complaint: Nausea/Vomiting/Diarrhea Stated complaint: + PREG IN DEC,VOMITING SINCE 6AM Time Seen by Provider: 06/22/21 11:26 Source: patient Mode of arrival: ambulatory Limitations: no limitations History of Present Illness HPI Narrative: This is a 30 years old patient presented to the emergency department with chief complaint no nausea and vomiting since this morning, she is currently MD elicited complaint: nausea and vomiting Description of vomiting: watery Associated nausea: Yes Associated abdominal pain: No Exacerbating factors: none Relieving factors: none Related Data Home Medications Medication Instructions Recorded Confirmed albuterol sulfate 90 mcg/actuation 2 puff INHALATION Q4H PRN 11/20/20 11/20/20 aerosol inhaler famotidine 20 mg tablet 20 mg PO BID 11/20/20 11/20/20 fluoxetine 20 mg capsule 20 mg PO DAILY 11/20/20 11/20/20 hydroxyzine pamoate 25 mg capsule 25 mg PO TID PRN 11/20/20 11/20/20 loratadine 10 mg tablet (Allergy 10 mg PO DAILY 11/20/20 11/20/20 Relief (loratadine)) nortriptyline 10 mg capsule 10 mg PO BEDTIME 11/20/20 11/20/20 Previous Rx's Medication Instructions Recorded omeprazole 20 mg capsule,delayed 20 mg PO DAILY #30 cap 11/20/20 release aluminum-mag hydroxide-simethicone 5 ml PO 5XD PRN #30 ml 05/17/21 200 mg-200 mg-20 mg/5 mL oral susp (Maalox Advanced) famotidine 20 mg tablet (Pepcid) 20 mg PO DAILY #14 tab 05/17/21 ondansetron HCl 4 mg tablet 4 mg PO Q8H PRN #10 tab 05/17/21 (Zofran) metoclopramide HCl 10 mg tablet 10 mg PO Q6H PRN #15 tab 06/22/21 (Reglan) Allergies Allergy/AdvReac Type Severity Reaction Status Date / Time bee pollen [BEE STINGS] Allergy Unknown SWELLING Verified 09/09/20 08:24 Review of Systems Review of Systems: Yes all other systems are reviewed and are negative Constitutional: Constitutional: Reports no additional constitutional complaints Cardiovascular: Cardiovascular: Reports no additional cardiovascular complaints Respiratory: Respiratory: Reports no additional respiratory complaints Gastrointestinal: Gastrointestinal: Reports nausea and Reports vomiting Integumentary/Breasts: Skin/Breast: Reports system reviewed and no additional complaints, except as docu PMFSH Past Medical History Source: unable to obtain Medical History Asthma Social History Social History Alcohol intake: unknown Patient Tobacco Use Status: Never used Tobacco Substance Use Type: Marijuana Advance Directives: No Advance Directives Information Provided: No Patient : Yes Physical Exam Vital Signs: Vital Signs: Last Vital Signs Temp 98.2 F 06/22/21 17:08 Pulse 66 06/22/21 17:08 Resp 14 06/22/21 17:08 BP 141/83 H 06/22/21 17:08 Pulse Ox 100 06/22/21 17:08 BMI result Body Mass Index 36.3 Const: General: cooperative and comfortable Nutritional Appearance: average body habitus and well nourished Orientation/consciousness: patient oriented x3 Limitations: no limitations HENMT: Head: Yes normal to inspection General nose exam: Normal external nose present Face and sinus: Yes normal facial exam Mouth: Normal oral and palatal mucosa present Throat: Yes posterior oropharynx normal Neck: Neck: Yes normal visual inspection and Yes full ROM Chest: Chest palpation & inspection: normal inspection of the chest Resp: Effort & Inspection: normal respiratory effort and able to speak in complete sentences Auscultation: clear to auscultation bilaterally Cardio: Jugular venous distension: no JVD Rate: regular rate Rhythm: regular rhythm GI: Inspection: Yes normal to inspection Palpation (GI): Soft to palpation, not firm, nontender and no guarding Auscultation: normal bowel sounds Skin: General skin exam: no rashes or lesions noted, elasticity normal and turgor normal Rashes: no rashes Neuro: General: patient oriented x3 Course Reevaluation(s) Reevaluation #1: signed out to Dr Catherine she will be this when able to take fluids down,need po challange before d/c MDM - Nausea/Vomiting/Diarrhea Lab Data Result diagrams: 06/22/21 13:08 06/22/21 13:08 Labs: Lab Results 06/22/21 06/22/21 06/22/21 Range/Units 09:19 09:19 13:08 WBC 11.3 H (4.8-10.8) X10*3/uL RBC 4.21 (4.20-5.50) X10*6/uL Hgb 12.7 (12.0-16.0) g/dl Hct 36.8 L (37.0-47.0) % MCV 87.4 (80.0-98.0) fL MCH 30.2 (27.0-33.0) pg MCHC 34.5 (31.0-35.0) g/dl RDW 13.2 (11.0-16.0) % Plt Count 180 (160-400) X10*3/uL MPV 11.6 (9.4-12.3) fL Immature Gran % (Auto) 0.3 (0.0-0.4) % Neut % (Auto) 92.6 H (45-73) % Lymph % (Auto) 5.2 L (20-40) % [place] % (Auto) 1.7 L (2-11) % Eos % (Auto) 0.0 (0-4) % Baso % (Auto) 0.2 (0-2) % Lymph # (Auto) 0.6 L (1.2-4.9) X10*3/uL [place] # (Auto) 0.2 (0.1-1.2) X10*3/uL Eos # (Auto) 0.0 (0.0-0.4) X10*3/uL Baso # (Auto) 0.0 (0.0-0.2) X10*3/uL Abs Immat Gran (auto) 0.03 (0.00-0.03) X10*3/uL Absolute Neuts (auto) 10.5 H (2.0-8.3) x10*3/uL Absolute Nucleated RBC 0.000 (0.0-0.012) X10*3/uL Nucleated RBC % (auto) 0.0 (0.0-0.2) /100WBC Smear Tech's Comments VERIFIED Sodium (135-145) mmol/L Potassium (3.3-5.1) mmol/L Chloride (96-108) mmol/L Carbon Dioxide (22-29) mmol/L Anion Gap (12-20) BUN (9-16) mg/dL Creatinine (0.5-1.4) mg/dL Estim Creat Clear Calc Estimated GFR Random Glucose (60-115) mg/dL Calcium (8.4-10.2) mg/dL Total Bilirubin (0.0-1.0) mg/dL AST (5-31) U/L ALT (0-31) U/L Alkaline Phosphatase (39-117) U/L Total Protein (6.5-8.0) g/dL Albumin (3.5-5.0) g/dL Beta HCG, Quant mIU/mL Urine Color YELLOW Urine Appearance HAZY Urine pH 8.5 H (5.0-8.0) Ur Specific [place] 1.020 (1.005-1.025) Urine Protein 1+ H (NEG-TRACE) MG/DL Urine Glucose (UA) NEG (NEG) MG/DL Urine Ketones 15 (NEG) MG/DL Urine Blood 2+ H (NEG) Urine Nitrite NEG (NEG) Ur Leukocyte Esterase NEG (NEG) Urine RBC 15-29 H (0) /HPF Urine WBC 0 (0-4) /HPF Ur Squamous Epith Cells 2+ /LPF Amorphous Sediment 4+ /LPF Urine Bacteria NONE /LPF Urine Test POSITIVE H (NEGATIVE) 06/22/21 06/22/21 Range/Units 13:08 13:08 WBC (4.8-10.8) X10*3/uL RBC (4.20-5.50) X10*6/uL Hgb (12.0-16.0) g/dl Hct (37.0-47.0) % MCV (80.0-98.0) fL MCH (27.0-33.0) pg MCHC (31.0-35.0) g/dl RDW (11.0-16.0) % Plt Count (160-400) X10*3/uL MPV (9.4-12.3) fL Immature Gran % (Auto) (0.0-0.4) % Neut % (Auto) (45-73) % Lymph % (Auto) (20-40) % [place] % (Auto) (2-11) % Eos % (Auto) (0-4) % Baso % (Auto) (0-2) % Lymph # (Auto) (1.2-4.9) X10*3/uL [place] # (Auto) (0.1-1.2) X10*3/uL Eos # (Auto) (0.0-0.4) X10*3/uL Baso # (Auto) (0.0-0.2) X10*3/uL Abs Immat Gran (auto) (0.00-0.03) X10*3/uL Absolute Neuts (auto) (2.0-8.3) x10*3/uL Absolute Nucleated RBC (0.0-0.012) X10*3/uL Nucleated RBC % (auto) (0.0-0.2) /100WBC Smear Tech's Comments Sodium 136 (135-145) mmol/L Potassium 3.3 (3.3-5.1) mmol/L Chloride 104 (96-108) mmol/L Carbon Dioxide 20 L (22-29) mmol/L Anion Gap 15 (12-20) BUN 8 L (9-16) mg/dL Creatinine 0.73 (0.5-1.4) mg/dL Estim Creat Clear Calc 122.1 Estimated GFR > 60 Random Glucose 126 H (60-115) mg/dL Calcium 9.5 (8.4-10.2) mg/dL Total Bilirubin 0.6 (0.0-1.0) mg/dL AST 14 (5-31) U/L ALT 14 (0-31) U/L Alkaline Phosphatase 65 (39-117) U/L Total Protein 7.7 (6.5-8.0) g/dL Albumin 4.5 (3.5-5.0) g/dL Beta HCG, Quant 39964 mIU/mL Urine Color Urine Appearance Urine pH (5.0-8.0) Ur Specific [place] (1.005-1.025) Urine Protein (NEG-TRACE) MG/DL Urine Glucose (UA) (NEG) MG/DL Urine Ketones (NEG) MG/DL Urine Blood (NEG) Urine Nitrite (NEG) Ur Leukocyte Esterase (NEG) Urine RBC (0) /HPF Urine WBC (0-4) /HPF Ur Squamous Epith Cells /LPF Amorphous Sediment /LPF Urine Bacteria /LPF Urine Test (NEGATIVE) Imaging Data US: Radiologist's impression: COMPARISON:? None.? LMP: 05/12/2021. Gestational age by maternal dates is 5 weeks 6 days. Estimated date of delivery by maternal dates is 02/16/2022. TECHNIQUE: Transabdominal and transvaginal first trimester OB ultrasound ? FINDINGS: There is an intrauterine gestational sac. [place]-rump length measures 0.17 cm which is too small to calculate gestational age. heart activity can be seen. There is a yolk sac. The right maternal ovary measures 3 x 2.5 x 2.2 cm. There is a 2 x 1.8 x 1.5 cm complex right ovarian cyst. The left ovary measures 2.4 x 2 x 1.9 cm. There is a 0.9 cm simple left ovarian cyst. There is no fluid in the pelvis. US/US OB <= 14 weeks fetus IMPRESSION: Single intrauterine gestation. pole measures 0.17 cm which is too small to calculate gestational age. Dictated By: Umm Velazquez MD Signed By: <Electronically signed by Umm Velazquez MD in OV> 06/22/21 1554 DD/ 1429 TD/TT:? Installation Superintendent: CORRINA Discharge Plan Discharge Clinical Impression: Hyperemesis gravidarum Patient Disposition: Home, Self-Care Instructions: Hyperemesis Gravidarum (ED) Additional Instructions: call you OB provider for follow up,you told me that you already called him Today.Return if worse,take reglan as needed for nausea Prescriptions: New metoclopramide HCl [Reglan] 10 mg tablet 10 mg PO Q6H PRN (Reason: nausea and vomiting) Qty: 15 RF: 0 No Action famotidine 20 mg tablet 20 mg PO BID RF: 0 nortriptyline 10 mg capsule 10 mg PO BEDTIME RF: 0 albuterol sulfate 90 mcg/actuation HFA aerosol inhaler 2 puff inhalation Q4H PRN (Reason: wheezing) RF: 0 fluoxetine 20 mg capsule 20 mg PO DAILY RF: 0 loratadine [Allergy Relief (loratadine)] 10 mg tablet 10 mg PO DAILY RF: 0 hydroxyzine pamoate 25 mg capsule 25 mg PO TID PRN (Reason: Anxiety) RF: 0 omeprazole 20 mg capsule,delayed release(DR/EC) 20 mg PO DAILY Qty: 30 RF: 0 ondansetron HCl [Zofran] 4 mg tablet 4 mg PO Q8H PRN (Reason: nausea and vomiting) Qty: 10 RF: 0 famotidine [Pepcid] 20 mg tablet 20 mg PO DAILY Qty: 14 RF: 0 alum-mag hydroxide-simeth [Maalox Advanced] 200-200-20 mg/5 mL suspension 5 ml PO 5XD PRN (Reason: dyspepsia) Qty: 30 RF: 0
[2021-06-22 13:14] LABS: Basophils Percent Auto 0.2 % (0-2); Hematocrit 36.8 % (37.0-47.0); Hemoglobin 12.7 g/dl (12.0-16.0); Imm Gran Abs Auto 0.03 X10*3/uL (0.00-0.03); Imm Gran Pct Auto 0.3 % (0.0-0.4); Lymphocytes Absolute Auto 0.6 X10*3/uL (1.2-4.9); Lymphocytes Percent Auto 5.2 % (20-40); MANUAL DIFF FLAG SCAN; Mean Corpuscular HGB Conc 34.5 g/dl (31.0-35.0); Mean Corpuscular Hemoglobin 30.2 pg (27.0-33.0); Mean Corpuscular Volume 87.4 fL (80.0-98.0); Mean Platelet Volume 11.6 fL (9.4-12.3); Monocytes Absolute Auto 0.2 X10*3/uL (0.1-1.2); Monocytes Percent Auto 1.7 % (2-11); Neutrophils Absolute Auto 10.5 x10*3/uL (2.0-8.3); Neutrophils Percent Auto 92.6 % (45-73); Platelet Count 180 X10*3/uL (160-400); Red Blood Count 4.21 X10*6/uL (4.20-5.50); Red Cell Distribution Width 13.2 % (11.0-16.0); SCAN SMEAR FLAG 1; White Blood Count 11.3 X10*3/uL (4.8-10.8)
[2021-06-22] MEDS: 0.9 % Sodium Chloride 1,000 ML 999 ML IVCONT ×3 (13:24→18:28)
[2021-06-22] MEDS: ondansetron HCL 4 MG/2 ML VIAL IVPUSH ×2 (13:25→17:30)
[2021-06-22 13:30] LABS: Alanine Aminotransferase 14 U/L (0-31); Albumin Level 4.5 g/dL (3.5-5.0); Alkaline Phosphatase 65 U/L (39-117); Anion Gap 15 (12-20); Aspartate Amino Transferase 14 U/L (5-31); Bilirubin Total 0.6 mg/dL (0.0-1.0); Blood Urea Nitrogen 8 mg/dL (9-16); Calcium 9.5 mg/dL (8.4-10.2); Carbon Dioxide 20 mmol/L (22-29); Chloride 104 mmol/L (96-108); Creatinine Clr Calc Pharmacy 122.1; Estimated Glomerular Filt Rate > 60; Glucose Random 126 mg/dL (60-115); Potassium 3.3 mmol/L (3.3-5.1); Sodium 136 mmol/L (135-145); Total Protein 7.7 g/dL (6.5-8.0)
[2021-06-22 13:32] VITALS: BP 144/81; PULSE 57; RESP 14; TEMP 36.8; O2SAT 100
[2021-06-22 13:33] LABS: SLIDE REVIEW VERIFIED
[2021-06-22 13:57] LABS: HCG Quantitative 29372 mIU/mL
[2021-06-22 15:11] VITALS: BP 145/91; PULSE 59; RESP 16; TEMP 36.8; O2SAT 100
[2021-06-22] MEDS: Metoclopramide HCl 10 MG/2 ML VIAL IVPUSH (15:56)
[2021-06-22 17:08] VITALS: BP 141/83; PULSE 66; RESP 14; TEMP 36.8; O2SAT 100
[2021-06-22 19:26] VITALS: BP 127/72; PULSE 70; RESP 16; O2SAT 100
== END 2021-06-22 20:03 | disposition home or self-care (01) ==
PROVIDERS: Emergency Provider Emergency Medicine; PCP Internal Medicine
DX: O21.9 Vomiting of pregnancy, unspecified (principal); Z3A.01 Less than 8 weeks gestation of pregnancy
CPT/HCPCS: 36415; 76801; 80053; 81001; 81025; 84702; 85025; 96361; 96374; 96375; 96376; 99284; 99285; J2405; J2765

== ENCOUNTER 2021-06-24 04:17 | Emergency (ER) | payer OTHER, SELFPAY ==
[2021-06-24 04:22] VITALS: BP 135/79; PULSE 64; RESP 16; TEMP 36.9; O2SAT 100; BMI 35.7
[2021-06-24 04:46] LABS: MANUAL DIFF FLAG NO
[2021-06-24 04:48] LABS: Basophils Percent Auto 0.3 % (0-2); Hematocrit 38.8 % (37.0-47.0); Hemoglobin 13.4 g/dl (12.0-16.0); Imm Gran Abs Auto 0.02 X10*3/uL (0.00-0.03); Imm Gran Pct Auto 0.2 % (0.0-0.4); Lymphocytes Absolute Auto 1.6 X10*3/uL (1.2-4.9); Lymphocytes Percent Auto 16.3 % (20-40); Mean Corpuscular HGB Conc 34.5 g/dl (31.0-35.0); Mean Corpuscular Hemoglobin 30.2 pg (27.0-33.0); Mean Corpuscular Volume 87.6 fL (80.0-98.0); Monocytes Absolute Auto 0.9 X10*3/uL (0.1-1.2); Monocytes Percent Auto 8.9 % (2-11); Neutrophils Absolute Auto 7.3 x10*3/uL (2.0-8.3); Neutrophils Percent Auto 74.3 % (45-73); Platelet Count 157 X10*3/uL (160-400); Red Blood Count 4.43 X10*6/uL (4.20-5.50); Red Cell Distribution Width 13.1 % (11.0-16.0); White Blood Count 9.8 X10*3/uL (4.8-10.8)
[2021-06-24 05:02] LABS: COVID-19 Test Negative (Negative); IDNOW Serial# 9DD0AD1C
[2021-06-24 05:03] LABS: Alanine Aminotransferase 15 U/L (0-31); Albumin Level 4.6 g/dL (3.5-5.0); Alkaline Phosphatase 62 U/L (39-117); Anion Gap 13 (12-20); Aspartate Amino Transferase 12 U/L (5-31); Bilirubin Total 0.6 mg/dL (0.0-1.0); Blood Urea Nitrogen 6 mg/dL (9-16); Calcium 9.7 mg/dL (8.4-10.2); Carbon Dioxide 23 mmol/L (22-29); Chloride 103 mmol/L (96-108); Creatinine Clr Calc Pharmacy 117.9; Estimated Glomerular Filt Rate > 60; Glucose Random 117 mg/dL (60-115); Sodium 136 mmol/L (135-145); Total Protein 7.6 g/dL (6.5-8.0)
--- NOTE | 2021-06-24 07:44 | ED_ITS ---
HPI - Nausea/Vomiting/Diarrhea General Chief complaint: Nausea/Vomiting/Diarrhea Stated complaint: N/V X2 DAYS Time Seen by Provider: 06/24/21 06:55 Source: patient Mode of arrival: ambulatory Limitations: no limitations History of Present Illness HPI Narrative: This is a very pleasant 30 years old the female , presented with nausea vomiting. She was evaluated by me 2 days ago she had normal labs 2 days ago, she had an IUP by ultrasound . She was prescribed Reglan which she filled late last night she took only 1 pill MD elicited complaint: nausea and vomiting Onset (ago): day(s) (3) Description of vomiting: watery Description of diarrhea: watery Associated nausea: Yes Associated abdominal pain: No Location of pain: none Related Data Home Medications Medication Instructions Recorded Confirmed albuterol sulfate 90 mcg/actuation 2 puff INHALATION Q4H PRN 11/20/20 11/20/20 aerosol inhaler famotidine 20 mg tablet 20 mg PO BID 11/20/20 11/20/20 fluoxetine 20 mg capsule 20 mg PO DAILY 11/20/20 11/20/20 hydroxyzine pamoate 25 mg capsule 25 mg PO TID PRN 11/20/20 11/20/20 loratadine 10 mg tablet (Allergy 10 mg PO DAILY 11/20/20 11/20/20 Relief (loratadine)) nortriptyline 10 mg capsule 10 mg PO BEDTIME 11/20/20 11/20/20 Previous Rx's Medication Instructions Recorded omeprazole 20 mg capsule,delayed 20 mg PO DAILY #30 cap 11/20/20 release aluminum-mag hydroxide-simethicone 5 ml PO 5XD PRN #30 ml 05/17/21 200 mg-200 mg-20 mg/5 mL oral susp (Maalox Advanced) famotidine 20 mg tablet (Pepcid) 20 mg PO DAILY #14 tab 05/17/21 ondansetron HCl 4 mg tablet 4 mg PO Q8H PRN #10 tab 05/17/21 (Zofran) metoclopramide HCl 10 mg tablet 10 mg PO Q6H PRN #15 tab 06/22/21 (Reglan) ondansetron HCl 4 mg tablet 4 mg PO Q8H 4 Days #12 tab 06/24/21 Allergies Allergy/AdvReac Type Severity Reaction Status Date / Time bee pollen [BEE STINGS] Allergy Unknown SWELLING Verified 09/09/20 08:24 Review of Systems Review of Systems: Yes all other systems are reviewed and are negative Constitutional: Constitutional: Reports no additional constitutional complaints ENT: Reports system reviewed and no additional complaints, except as documented Cardiovascular: Cardiovascular: Reports no additional cardiovascular complaints Respiratory: Respiratory: Reports no additional respiratory complaints Gastrointestinal: Gastrointestinal: Reports nausea and Reports vomiting Integumentary/Breasts: Skin/Breast: Reports system reviewed and no additional complaints, except as docu [facility] Past Medical History Medical History Asthma Social History Social History Alcohol intake: never Patient Tobacco Use Status: Never used Tobacco Use of substances other than those prescribed or required for medical reasons: No Substance Use Type: Marijuana Advance Directives: No Advance Directives Information Provided: No Patient : Yes Physical Exam Vital Signs: Vital Signs: Last Vital Signs Temp 98.2 F 06/24/21 08:12 Pulse 75 06/24/21 08:12 Resp 18 06/24/21 08:12 BP 115/75 06/24/21 08:12 Pulse Ox 100 06/24/21 08:12 BMI result Body Mass Index 35.7 Const: Other: She looks well, she is not toxic-appearing, she has a very stable vital signs, she has a normal pulse of 64 General: cooperative, comfortable, no acute distress and well developed Nutritional Appearance: average body habitus Orientation/consciousness: patient oriented x3 Limitations: no limitations HENMT: Head: Yes normal to inspection Face and sinus: Yes normal facial exam Mouth: Normal oral and palatal mucosa present Throat: Yes posterior oropharynx normal Neck: Neck: Yes normal visual inspection Chest: Chest palpation & inspection: normal inspection of the chest Resp: Effort & Inspection: normal respiratory effort Auscultation: clear to auscultation bilaterally Cardio: Jugular venous distension: no JVD Rate: regular rate Rhythm: regular rhythm GI: Inspection: Yes normal to inspection Palpation (GI): Soft to palpation, not firm, nontender, no guarding and not rigid Skin: General skin exam: no rashes or lesions noted, elasticity normal and turgor normal Neuro: General: patient oriented x3 Course Reevaluation(s) Reevaluation #1: At this time a 8.50 a.m. patient is tolerating p.o. well no vomiting no nausea,wea already gave the reglan at home,will try zofran this anne emerson,she an appointment with OBGYN coming up in 2 Weeks,she has IUP documented at [facility] MDM - Nausea/Vomiting/Diarrhea MDM Narrative Medical decision making narrative: This is a 50 years old female on her 1st trimester , we are going to get labs, will administer IV fluids and antiemetic Lab Data Result diagrams: 06/24/21 04:41 06/24/21 04:41 Labs: Lab Results 06/24/21 06/24/21 06/24/21 Range/Units 04:41 04:41 04:41 WBC 9.8 (4.8-10.8) X10*3/uL RBC 4.43 (4.20-5.50) X10*6/uL Hgb 13.4 (12.0-16.0) g/dl Hct 38.8 (37.0-47.0) % MCV 87.6 (80.0-98.0) fL MCH 30.2 (27.0-33.0) pg MCHC 34.5 (31.0-35.0) g/dl RDW 13.1 (11.0-16.0) % Plt Count 157 L (160-400) X10*3/uL MPV 12.0 (9.4-12.3) fL Immature Gran % (Auto) 0.2 (0.0-0.4) % Neut % (Auto) 74.3 H (45-73) % Lymph % (Auto) 16.3 L (20-40) % [place] % (Auto) 8.9 (2-11) % Eos % (Auto) 0.0 (0-4) % Baso % (Auto) 0.3 (0-2) % Lymph # (Auto) 1.6 (1.2-4.9) X10*3/uL [place] # (Auto) 0.9 (0.1-1.2) X10*3/uL Eos # (Auto) 0.0 (0.0-0.4) X10*3/uL Baso # (Auto) 0.0 (0.0-0.2) X10*3/uL Abs Immat Gran (auto) 0.02 (0.00-0.03) X10*3/uL Absolute Neuts (auto) 7.3 (2.0-8.3) x10*3/uL Absolute Nucleated RBC 0.000 (0.0-0.012) X10*3/uL Nucleated RBC % (auto) 0.0 (0.0-0.2) /100WBC Sodium 136 (135-145) mmol/L Potassium 3.0 L (3.3-5.1) mmol/L Chloride 103 (96-108) mmol/L Carbon Dioxide 23 (22-29) mmol/L Anion Gap 13 (12-20) BUN 6 L (9-16) mg/dL Creatinine 0.75 (0.5-1.4) mg/dL Estim Creat Clear Calc 117.9 Estimated GFR > 60 Random Glucose 117 H (60-115) mg/dL Calcium 9.7 (8.4-10.2) mg/dL Total Bilirubin 0.6 (0.0-1.0) mg/dL AST 12 (5-31) U/L ALT 15 (0-31) U/L Alkaline Phosphatase 62 (39-117) U/L Total Protein 7.6 (6.5-8.0) g/dL Albumin 4.6 (3.5-5.0) g/dL COVID-19 ([facility]KESH) Negative (Negative) COVID-19 Clin Com See Note Discharge Plan Discharge Clinical Impression: Hyperemesis gravidarum Patient Disposition: Home, Self-Care Instructions: Hyperemesis Gravidarum (ED) Prescriptions: New ondansetron HCl 4 mg tablet 4 mg PO Q8H 4 Days Qty: 12 RF: 0 No Action famotidine 20 mg tablet 20 mg PO BID RF: 0 nortriptyline 10 mg capsule 10 mg PO BEDTIME RF: 0 albuterol sulfate 90 mcg/actuation HFA aerosol inhaler 2 puff inhalation Q4H PRN (Reason: wheezing) RF: 0 fluoxetine 20 mg capsule 20 mg PO DAILY RF: 0 loratadine [Allergy Relief (loratadine)] 10 mg tablet 10 mg PO DAILY RF: 0 hydroxyzine pamoate 25 mg capsule 25 mg PO TID PRN (Reason: Anxiety) RF: 0 omeprazole 20 mg capsule,delayed release(DR/EC) 20 mg PO DAILY Qty: 30 RF: 0 metoclopramide HCl [Reglan] 10 mg tablet 10 mg PO Q6H PRN (Reason: nausea and vomiting) Qty: 15 RF: 0 ondansetron HCl [Zofran] 4 mg tablet 4 mg PO Q8H PRN (Reason: nausea and vomiting) Qty: 10 RF: 0 famotidine [Pepcid] 20 mg tablet 20 mg PO DAILY Qty: 14 RF: 0 alum-mag hydroxide-simeth [Maalox Advanced] 200-200-20 mg/5 mL suspension 5 ml PO 5XD PRN (Reason: dyspepsia) Qty: 30 RF: 0 Interventions: ED Discharge Assessment Last Done: 06/24/21 09:13 Discharge Date/Time: 06/24/21 09:14
[2021-06-24] MEDS: Metoclopramide HCl 10 MG/2 ML VIAL IVPUSH (08:07)
[2021-06-24] MEDS: Potassium Chloride Packet 20 MEQ PACKET 40 MEQ PO (08:07)
[2021-06-24] MEDS: 0.9 % Sodium Chloride 1,000 ML 999 ML IVCONT (08:07)
[2021-06-24 08:12] VITALS: BP 115/75; PULSE 75; RESP 18; TEMP 36.8; O2SAT 100
--- NOTE | 2021-06-24 08:14 | PC.NURSE ---
denies vomiting since early this am. denies vag bleed, cramping.
== END 2021-06-24 09:14 | disposition home or self-care (01) ==
PROVIDERS: Emergency Provider Emergency Medicine
DX: O21.0 Mild hyperemesis gravidarum (principal); Z3A.00 Weeks of gestation of pregnancy not specified; Z20.822 Contact with and (suspected) exposure to COVID-19
CPT/HCPCS: 80053; 85025; 87635; 96361; 96374; 99284; J2765

== ENCOUNTER 2022-09-02 13:28 | Emergency (ER) | payer OTHER, SELFPAY ==
[2022-09-02 13:34] VITALS: BP 138/86; PULSE 74; O2SAT 99
--- NOTE | 2022-09-02 13:34 | ED.NAVMDI ---
HPI - Nausea/Vomiting/Diarrhea General Chief complaint: Nausea/Vomiting/Diarrhea <BERTHA Olivo - Last Filed: 09/02/22 13:41> Stated complaint: VOMITTING <BERTHA Olivo - Last Filed: 09/02/22 13:41> Time Seen by Provider: 09/02/22 16:52 <BERTHA Olivo - Last Filed: 09/02/22 13:41> Source: patient, RN notes reviewed and old records reviewed <Neptali Mazariegos - Last Filed: 09/02/22 22:23> Mode of arrival: EMS <Neptali Mazariegos - Last Filed: 09/02/22 22:23> Limitations: no limitations <Neptali Mazariegos - Last Filed: 09/02/22 22:23> History of Present Illness HPI Narrative: 32-year-old female with past medical history significant for anemia, cannabinoid hyperemesis syndrome, anxiety presents for evaluation of vomiting. Patient reports her symptoms started at 11:00 a.m. She reports that this started shortly after ?eating a sausage and egg on a croissant. ? She describes her vomiting as nonbloody. She denies any sharp abdominal pains but does complain of some ?burning in my stomach. ? She rates her discomfort as 8/10, constant. Patient reports that she last smoked marijuana around 5:00 a.m. She does not feel that her vomiting today is related to her marijuana use Reports a previous hernia repair and as well as a tubal ligation. Denies any other abdominal surgeries Her last menstrual cycle was approximately 1 month ago <Neptali Mazariegos - Last Filed: 09/02/22 22:23> Associated nausea: Yes <Neptali Mazariegos - Last Filed: 09/02/22 22:23> Related Data Home medications: Home Medications Medication Instructions Recorded Confirmed albuterol sulfate 90 mcg/actuation 2 puff inhalation Q4H PRN wheezing 11/20/20 11/20/20 aerosol inhaler famotidine 20 mg tablet 20 mg PO BID 11/20/20 11/20/20 fluoxetine 20 mg capsule 20 mg PO DAILY 11/20/20 11/20/20 hydroxyzine pamoate 25 mg capsule 25 mg PO TID PRN Anxiety 11/20/20 11/20/20 loratadine 10 mg tablet (Allergy 10 mg PO DAILY 11/20/20 11/20/20 Relief (loratadine)) nortriptyline 10 mg capsule 10 mg PO BEDTIME 11/20/20 11/20/20 Previous Rx's Medication Instructions Recorded omeprazole 20 mg capsule,delayed 20 mg PO DAILY Acid reflux #30 caps 11/20/20 release aluminum-mag hydroxide-simethicone 5 ml PO 5XD PRN dyspepsia #30 mL 05/17/21 200 mg-200 mg-20 mg/5 mL oral susp (Maalox Advanced) famotidine 20 mg tablet (Pepcid) 20 mg PO DAILY #14 tabs 05/17/21 ondansetron HCl 4 mg tablet 4 mg PO Q8H PRN nausea and 05/17/21 (Zofran) vomiting #10 tabs metoclopramide HCl 10 mg tablet 10 mg PO Q6H PRN nausea and 06/22/21 (Reglan) vomiting #15 tabs ondansetron HCl 4 mg tablet 4 mg PO Q8H prn nausea 4 days #12 06/24/21 tabs ondansetron 4 mg disintegrating 4 mg PO Q8H PRN nausea and 09/02/22 tablet vomiting #20 tabs <BERTHA Olivo - Last Filed: 09/02/22 13:41> Allergies/Adverse reactions: Allergies Allergy/AdvReac Type Severity Reaction Status Date / Time bee pollen [BEE STINGS] Allergy Unknown SWELLING Verified 09/09/20 08:24 <BERTHA Olivo Last Filed: 09/02/22 13:41> Review of Systems Constitutional: Constitutional: Reports as per HPI, Denies fatigue, Denies fever(s) and Denies headache(s) <Neptali Mazariegos - Last Filed: 09/02/22 22:23> ENT: Denies headache(s) <Neptali Mazariegos - Last Filed: 09/02/22 22:23> Cardiovascular: Cardiovascular: Denies chest pain and Denies dyspnea <Neptali Mazariegos - Last Filed: 09/02/22 22:23> Respiratory: Respiratory: Denies cough and Denies dyspnea <Neptali Mazariegos - Last Filed: 09/02/22 22:23> Gastrointestinal: Gastrointestinal: Reports abdominal pain, Denies constipation, Reports nausea and Reports vomiting <Neptali Mazariegos - Last Filed: 09/02/22 22:23> Genitourinary: Genitourinary: Denies dysuria <Neptali Mazariegos - Last Filed: 09/02/22 22:23> Neurologic: Denies headache(s) and Denies focal weakness <Neptali Mazariegos - Last Filed: 09/02/22 22:23> Endocrine: Endocrine: Denies fatigue <Neptali Mazariegos - Last Filed: 09/02/22 22:23> [facility] Past Medical History Medical History: Medical History Asthma <BERTHA Olivo - Last Filed: 09/02/22 13:41> Social History Social History: Social History Alcohol intake: never Patient Tobacco Use Status: Never used Tobacco Smoked in Last 30 Days: No Use of substances other than those prescribed or required for medical reasons: Yes Substance Use Type: Marijuana Last Used Substance: Hours (ago) Any prior treatment program specific to substance use: No Advance Directives: No Advance Directives Information Provided: No <BERTHA Olivo - Last Filed: 09/02/22 13:41> Physical Exam Vital Signs: Vital Signs: Last Vital Signs Temp 98 F 09/02/22 13:35 Pulse 68 09/02/22 13:35 Resp 18 09/02/22 13:35 BP 155/89 H 09/02/22 13:35 Pulse Ox 98 09/02/22 13:35 O2 Del Method 09/02/22 13:35 BMI result Body Mass Index 41.1 <BERTHA Olivo - Last Filed: 09/02/22 13:41> Vital Signs: Last Vital Signs Temp 98 F 09/02/22 13:35 Pulse 68 09/02/22 13:35 Resp 18 09/02/22 13:35 BP 155/89 H 09/02/22 13:35 Pulse Ox 98 09/02/22 13:35 O2 Del Method 09/02/22 13:35 BMI result Body Mass Index 41.1 <Neptali Mazariegos - Last Filed: 09/02/22 22:23> Const: General: healthy appearing, comfortable, no acute distress, alert and awake < - Last Filed: 09/02/22 22:23> Nutritional Appearance: well nourished < - Last Filed: 09/02/22 22:23> Orientation/consciousness: patient oriented x3 < - Last Filed: 09/02/22 22:23> HEENT: Head: Yes normocephalic and Yes atraumatic < - Last Filed: 09/02/22 22:23> Throat: Yes posterior oropharynx normal < - Last Filed: 09/02/22 22:23> Eyes: Eyelids: Yes eyelids normal < - Last Filed: 09/02/22 22:23> Conjunctivae: conjunctivae normal < - Last Filed: 09/02/22 22:23> Sclerae: sclerae normal < - Last Filed: 09/02/22 22:23> Corneas: corneas normal < - Last Filed: 09/02/22 22:23> Pupils: Equal, round and reactive pupils present < - Last Filed: 09/02/22 22:23> EOM: EOMs intact bilaterally < - Last Filed: 09/02/22 22:23> Neck: Neck: Yes full ROM < - Last Filed: 09/02/22 22:23> Resp: Effort & Inspection: normal respiratory effort, able to speak in complete sentences, no audible wheezes and not labored < - Last Filed: 09/02/22 22:23> Auscultation: clear to auscultation bilaterally < - Last Filed: 09/02/22 22:23> Cardio: Rate: regular rate < - Last Filed: 09/02/22 22:23> Rhythm: regular rhythm < - Last Filed: 09/02/22 22:23> GI: Inspection: No distended <Neptali Mazariegos - Last Filed: 09/02/22 22:23> Palpation (GI): Soft to palpation, not firm, Tenderness to palpation present (GI) (Diffusely tender to palpation without guarding), no guarding and not rigid <Neptali Mazariegos - Last Filed: 09/02/22 22:23> Auscultation: normoactive bowel sounds <Neptali Hurtadoy - Last Filed: 09/02/22 22:23> Skin: General skin exam: no rashes or lesions noted and elasticity normal <Neptali Hurtadoy - Last Filed: 09/02/22 22:23> Neuro: General: patient oriented x3 <Neptalipaco Mazariegos - Last Filed: 09/02/22 22:23> Cranial nerves: Yes CN's II-XII intact bilaterally, Yes Equal, round and reactive pupils present and Yes Bilaterally intact EOM present <Neptali Mazariegos Last Filed: 09/02/22 22:23> Cognition (Neuro): normal cognition <Neptali Mazariegos - Last Filed: 09/02/22 22:23> Course Course Course Narrative: RME--32 yo F w/PMHx asthma BIBA from home c/o nausea, vomiting, lightheadedness and generalized weakness x this morning at 11AM. Reports mild diarrhea. Abd pain comes and goes. Admits to THC use, denies ETOH Abdomen soft diffusely ttp, no rebound or guarding Labs, UA, Preg ordered <BERTHA Olivo - Last Filed: 09/02/22 13:41> Reevaluation(s) Reevaluation #1: Patient reports she still has abdominal discomfort and vomited again. She has received 2 doses of zofran. We will treat with Haldol 2.5 mg IV as well as a GI cocktail <Neptali MyersKossuth - Last Filed: 09/02/22 22:23> Time: 20:55 <Neptali MyersKossuth - Last Filed: 09/02/22 22:23> Medications Administered Discontinued Medications Generic Name Dose Route Start Last Admin Trade Name Freq PRN Reason Stop Dose Admin Al Hydroxide/Mg Hydroxide 30 ml 09/02/22 21:10 09/02/22 21:15 Magnesium Hydrox/Alum Hydrox 30 Ml Oral.Susp PO 09/02/22 21:11 30 ml ONCE ONE Administration Haloperidol Lactate 2.5 mg 09/02/22 21:10 09/02/22 21:15 Haloperidol Lactate 5 Mg/Ml Vial IVPUSH 09/02/22 21:11 2.5 mg STAT STA Administration Sodium Chloride 1,000 mls @ 999 mls/hr 09/02/22 17:00 09/02/22 19:26 Ns IV 09/02/22 18:00 Infused .Q1H1M NAZANIN Infusion Lidocaine HCl 15 ml 09/02/22 21:10 09/02/22 21:15 Lidocaine Hcl Viscous 2 % 15 Ml Solution MUCOUS MEM 09/02/22 21:11 15 ml ONCE ONE Administration Ondansetron HCl 4 mg 09/02/22 17:00 09/02/22 17:24 Ondansetron Hcl 4 Mg/2 Ml Vial IVPUSH 09/02/22 17:01 4 mg ONCE ONE Administration Ondansetron HCl 4 mg 09/02/22 18:51 09/02/22 19:26 Ondansetron Hcl 4 Mg/2 Ml Vial IVPUSH 09/02/22 18:52 4 mg ONCE ONE Administration Pantoprazole Sodium 40 mg 09/02/22 17:00 09/02/22 17:24 Pantoprazole Sodium 40 Mg/10 Ml Vial IVPUSH 09/02/22 17:01 40 mg ONCE ONE Administration <BERTHA Olivo - Last Filed: 09/02/22 13:41> Medications Administered Discontinued Medications Generic Name Dose Route Start Last Admin Trade Name Freq PRN Reason Stop Dose Admin Al Hydroxide/Mg Hydroxide 30 ml 09/02/22 21:10 09/02/22 21:15 Magnesium Hydrox/Alum Hydrox 30 Ml Oral.Susp PO 09/02/22 21:11 30 ml ONCE ONE Administration Haloperidol Lactate 2.5 mg 09/02/22 21:10 09/02/22 21:15 Haloperidol Lactate 5 Mg/Ml Vial IVPUSH 09/02/22 21:11 2.5 mg STAT STA Administration Sodium Chloride 1,000 mls @ 999 mls/hr 09/02/22 17:00 09/02/22 19:26 Ns IV 09/02/22 18:00 Infused .Q1H1M NAZANIN Infusion Lidocaine HCl 15 ml 09/02/22 21:10 09/02/22 21:15 Lidocaine Hcl Viscous 2 % 15 Ml Solution MUCOUS MEM 09/02/22 21:11 15 ml ONCE ONE Administration Ondansetron HCl 4 mg 09/02/22 17:00 09/02/22 17:24 Ondansetron Hcl 4 Mg/2 Ml Vial IVPUSH 09/02/22 17:01 4 mg ONCE ONE Administration Ondansetron HCl 4 mg 09/02/22 18:51 09/02/22 19:26 Ondansetron Hcl 4 Mg/2 Ml Vial IVPUSH 09/02/22 18:52 4 mg ONCE ONE Administration Pantoprazole Sodium 40 mg 09/02/22 17:00 09/02/22 17:24 Pantoprazole Sodium 40 Mg/10 Ml Vial IVPUSH 09/02/22 17:01 40 mg ONCE ONE Administration <Neptali Mazariegos - Last Filed: 09/02/22 22:23> Medical Decision Making Medical Decision Making [facility] Narrative: 32-year-old female with a history of cannabinoid hyperemesis syndrome presents for evaluation of vomiting. She did smoke I this morning. It is likely that this is cause of her symptoms. Is also possible that she has a viral etiology. Her labs are reassuring, she has a mild leukocytosis with left shift which is likely reactive vomiting. Electrolytes are within normal limits, no evidence of MIGUEL. Will treat with IV fluids and Zofran. The abdomen is soft, nondistended and without guarding. I have a low suspicion for surgical abdomen. Will defer imaging at this time. Vital signs are stable <Neptali Mazariegos - Last Filed: 09/02/22 22:23> Differential Diagnosis Cannabinoid hyperemesis syndrome Nausea/vomiting Gastroenteritis Hyperemesis gravidarum GERD Peptic Ulcer Disease <Neptali Mazariegos - Last Filed: 09/02/22 22:23> Lab Data [facility] Lab Attestation statement: I reviewed the patient's lab results. <Neptali Mazariegos - Last Filed: 09/02/22 22:23> No significant lab abnormalities <Neptali Mazariegos - Last Filed: 09/02/22 22:23> Result Diagrams: 09/02/22 14:05 09/02/22 14:05 <BERTHA Olivo - Last Filed: 09/02/22 13:41> Labs: Lab Results 09/02/22 09/02/22 09/02/22 Range/Units 14:05 14:05 15:45 WBC 11.6 H (4.8-10.8) X10*3/uL RBC 4.58 (4.20-5.50) X10*6/uL Hgb 13.6 (12.0-16.0) g/dl Hct 39.0 (37.0-47.0) % MCV 85.2 (80.0-98.0) fL MCH 29.7 (27.0-33.0) pg MCHC 34.9 (31.0-35.0) g/dl RDW 12.3 (11.0-16.0) % Plt Count 170 (160-400) X10*3/uL MPV 12.0 (9.4-12.3) fL Immature Gran % (Auto) 0.2 (0.0-0.4) % Neut % (Auto) 83.7 H (45-73) % Lymph % (Auto) 12.2 L (20-40) % [place] % (Auto) 3.4 (2-11) % Eos % (Auto) 0.2 (0-4) % Baso % (Auto) 0.3 (0-2) % Lymph # (Auto) 1.4 (1.2-4.9) X10*3/uL [place] # (Auto) 0.4 (0.1-1.2) X10*3/uL Eos # (Auto) 0.0 (0.0-0.4) X10*3/uL Baso # (Auto) 0.0 (0.0-0.2) X10*3/uL Abs Immat Gran (auto) 0.02 (0.00-0.03) X10*3/uL Absolute Neuts (auto) 9.7 H (2.0-8.3) x10*3/uL Absolute Nucleated RBC 0.000 (0.0-0.012) X10*3/uL Nucleated RBC % (auto) 0.0 (0.0-0.2) /100WBC Sodium 138 (135-145) mmol/L Potassium 3.3 (3.3-5.1) mmol/L Chloride 106 (96-108) mmol/L Carbon Dioxide 17 L (22-29) mmol/L Anion Gap 18 (12-20) BUN 9 (9-16) mg/dL Creatinine 0.78 (0.5-1.4) mg/dL Estim Creat Clear Calc 124.8 Estimated GFR > 60 Random Glucose 133 H (60-115) mg/dL Calcium 9.4 (8.4-10.2) mg/dL Magnesium 1.6 (1.6-2.6) mg/dL Total Bilirubin 0.8 (0.0-1.0) mg/dL Direct Bilirubin 0.2 (0.0-0.5) mg/dL AST 20 (5-31) U/L ALT 22 (0-31) U/L Alkaline Phosphatase 77 (39-117) U/L Total Protein 7.7 (6.5-8.0) g/dL Albumin 4.5 (3.5-5.0) g/dL Lipase 11 (8-78) U/L Beta HCG, Quant mIU/mL Urine Color Yellow Urine Appearance Clear Urine pH >= 9.0 (5.0-9.0) Ur Specific [place] 1.020 (1.005-1.025) Urine Protein 100 (2+) H (Neg-Trace) mg/dL Urine Glucose (UA) Negative (Negative) mg/dL Urine Ketones 80 (Negative) mg/dL Urine Blood Moderate (2+) H (Negative) Urine Nitrite Negative (Negative) Ur Leukocyte Esterase Negative (Negative) Urine RBC >20 H (0-2) /HPF Urine WBC 0-5 (0-5) /HPF Ur Squamous Epith Cells 3-5 (0-2) /HPF Urine Bacteria None Seen (None Seen) Hyaline Casts 0-2 (0-2) /LPF Urine Opiates Screen (Not Detect) Urine Fentanyl Screen (Not Detect) Ur Barbiturates Screen (Not Detect) Ur Phencyclidine Scrn (Not Detect) Ur Amphetamines Screen (Not Detect) U Benzodiazepines Scrn (Not Detect) Urine Cocaine Screen (Not Detect) U Marijuana (THC) Screen (Not Detect) 09/02/22 09/02/22 Range/Units 15:45 17:21 WBC (4.8-10.8) X10*3/uL RBC (4.20-5.50) X10*6/uL Hgb (12.0-16.0) g/dl Hct (37.0-47.0) % MCV (80.0-98.0) fL MCH (27.0-33.0) pg MCHC (31.0-35.0) g/dl RDW (11.0-16.0) % Plt Count (160-400) X10*3/uL MPV (9.4-12.3) fL Immature Gran % (Auto) (0.0-0.4) % Neut % (Auto) (45-73) % Lymph % (Auto) (20-40) % [place] % (Auto) (2-11) % Eos % (Auto) (0-4) % Baso % (Auto) (0-2) % Lymph # (Auto) (1.2-4.9) X10*3/uL [place] # (Auto) (0.1-1.2) X10*3/uL Eos # (Auto) (0.0-0.4) X10*3/uL Baso # (Auto) (0.0-0.2) X10*3/uL Abs Immat Gran (auto) (0.00-0.03) X10*3/uL Absolute Neuts (auto) (2.0-8.3) x10*3/uL Absolute Nucleated RBC (0.0-0.012) X10*3/uL Nucleated RBC % (auto) (0.0-0.2) /100WBC Sodium (135-145) mmol/L Potassium (3.3-5.1) mmol/L Chloride (96-108) mmol/L Carbon Dioxide (22-29) mmol/L Anion Gap (12-20) BUN (9-16) mg/dL Creatinine (0.5-1.4) mg/dL Estim Creat Clear Calc Estimated GFR Random Glucose (60-115) mg/dL Calcium (8.4-10.2) mg/dL Magnesium (1.6-2.6) mg/dL Total Bilirubin (0.0-1.0) mg/dL Direct Bilirubin (0.0-0.5) mg/dL AST (5-31) U/L ALT (0-31) U/L Alkaline Phosphatase (39-117) U/L Total Protein (6.5-8.0) g/dL Albumin (3.5-5.0) g/dL Lipase (8-78) U/L Beta HCG, Quant < 2 mIU/mL Urine Color Urine Appearance Urine pH (5.0-9.0) Ur Specific [place] (1.005-1.025) Urine Protein (Neg-Trace) mg/dL Urine Glucose (UA) (Negative) mg/dL Urine Ketones (Negative) mg/dL Urine Blood (Negative) Urine Nitrite (Negative) Ur Leukocyte Esterase (Negative) Urine RBC (0-2) /HPF Urine WBC (0-5) /HPF Ur Squamous Epith Cells (0-2) /HPF Urine Bacteria (None Seen) Hyaline Casts (0-2) /LPF Urine Opiates Screen Not Detected (Not Detect) Urine Fentanyl Screen Not Detected (Not Detect) Ur Barbiturates Screen Not Detected (Not Detect) Ur Phencyclidine Scrn Not Detected (Not Detect) Ur Amphetamines Screen Not Detected (Not Detect) U Benzodiazepines Scrn Not Detected (Not Detect) Urine Cocaine Screen Not Detected (Not Detect) U Marijuana (THC) Screen POSITIVE H (Not Detect) <BERTHA Olivo - Last Filed: 09/02/22 13:41> Lab Results 09/02/22 09/02/22 09/02/22 Range/Units 14:05 14:05 15:45 WBC 11.6 H (4.8-10.8) X10*3/uL RBC 4.58 (4.20-5.50) X10*6/uL Hgb 13.6 (12.0-16.0) g/dl Hct 39.0 (37.0-47.0) % MCV 85.2 (80.0-98.0) fL MCH 29.7 (27.0-33.0) pg MCHC 34.9 (31.0-35.0) g/dl RDW 12.3 (11.0-16.0) % Plt Count 170 (160-400) X10*3/uL MPV 12.0 (9.4-12.3) fL Immature Gran % (Auto) 0.2 (0.0-0.4) % Neut % (Auto) 83.7 H (45-73) % Lymph % (Auto) 12.2 L (20-40) % [place] % (Auto) 3.4 (2-11) % Eos % (Auto) 0.2 (0-4) % Baso % (Auto) 0.3 (0-2) % Lymph # (Auto) 1.4 (1.2-4.9) X10*3/uL [place] # (Auto) 0.4 (0.1-1.2) X10*3/uL Eos # (Auto) 0.0 (0.0-0.4) X10*3/uL Baso # (Auto) 0.0 (0.0-0.2) X10*3/uL Abs Immat Gran (auto) 0.02 (0.00-0.03) X10*3/uL Absolute Neuts (auto) 9.7 H (2.0-8.3) x10*3/uL Absolute Nucleated RBC 0.000 (0.0-0.012) X10*3/uL Nucleated RBC % (auto) 0.0 (0.0-0.2) /100WBC Sodium 138 (135-145) mmol/L Potassium 3.3 (3.3-5.1) mmol/L Chloride 106 (96-108) mmol/L Carbon Dioxide 17 L (22-29) mmol/L Anion Gap 18 (12-20) BUN 9 (9-16) mg/dL Creatinine 0.78 (0.5-1.4) mg/dL Estim Creat Clear Calc 124.8 Estimated GFR > 60 Random Glucose 133 H (60-115) mg/dL Calcium 9.4 (8.4-10.2) mg/dL Magnesium 1.6 (1.6-2.6) mg/dL Total Bilirubin 0.8 (0.0-1.0) mg/dL Direct Bilirubin 0.2 (0.0-0.5) mg/dL AST 20 (5-31) U/L ALT 22 (0-31) U/L Alkaline Phosphatase 77 (39-117) U/L Total Protein 7.7 (6.5-8.0) g/dL Albumin 4.5 (3.5-5.0) g/dL Lipase 11 (8-78) U/L Beta HCG, Quant mIU/mL Urine Color Yellow Urine Appearance Clear Urine pH >= 9.0 (5.0-9.0) Ur Specific [place] 1.020 (1.005-1.025) Urine Protein 100 (2+) H (Neg-Trace) mg/dL Urine Glucose (UA) Negative (Negative) mg/dL Urine Ketones 80 (Negative) mg/dL Urine Blood Moderate (2+) H (Negative) Urine Nitrite Negative (Negative) Ur Leukocyte Esterase Negative (Negative) Urine RBC >20 H (0-2) /HPF Urine WBC 0-5 (0-5) /HPF Ur Squamous Epith Cells 3-5 (0-2) /HPF Urine Bacteria None Seen (None Seen) Hyaline Casts 0-2 (0-2) /LPF Urine Opiates Screen (Not Detect) Urine Fentanyl Screen (Not Detect) Ur Barbiturates Screen (Not Detect) Ur Phencyclidine Scrn (Not Detect) Ur Amphetamines Screen (Not Detect) U Benzodiazepines Scrn (Not Detect) Urine Cocaine Screen (Not Detect) U Marijuana (THC) Screen (Not Detect) 09/02/22 09/02/22 Range/Units 15:45 17:21 WBC (4.8-10.8) X10*3/uL RBC (4.20-5.50) X10*6/uL Hgb (12.0-16.0) g/dl Hct (37.0-47.0) % MCV (80.0-98.0) fL MCH (27.0-33.0) pg MCHC (31.0-35.0) g/dl RDW (11.0-16.0) % Plt Count (160-400) X10*3/uL MPV (9.4-12.3) fL Immature Gran % (Auto) (0.0-0.4) % Neut % (Auto) (45-73) % Lymph % (Auto) (20-40) % [place] % (Auto) (2-11) % Eos % (Auto) (0-4) % Baso % (Auto) (0-2) % Lymph # (Auto) (1.2-4.9) X10*3/uL [place] # (Auto) (0.1-1.2) X10*3/uL Eos # (Auto) (0.0-0.4) X10*3/uL Baso # (Auto) (0.0-0.2) X10*3/uL Abs Immat Gran (auto) (0.00-0.03) X10*3/uL Absolute Neuts (auto) (2.0-8.3) x10*3/uL Absolute Nucleated RBC (0.0-0.012) X10*3/uL Nucleated RBC % (auto) (0.0-0.2) /100WBC Sodium (135-145) mmol/L Potassium (3.3-5.1) mmol/L Chloride (96-108) mmol/L Carbon Dioxide (22-29) mmol/L Anion Gap (12-20) BUN (9-16) mg/dL Creatinine (0.5-1.4) mg/dL Estim Creat Clear Calc Estimated GFR Random Glucose (60-115) mg/dL Calcium (8.4-10.2) mg/dL Magnesium (1.6-2.6) mg/dL Total Bilirubin (0.0-1.0) mg/dL Direct Bilirubin (0.0-0.5) mg/dL AST (5-31) U/L ALT (0-31) U/L Alkaline Phosphatase (39-117) U/L Total Protein (6.5-8.0) g/dL Albumin (3.5-5.0) g/dL Lipase (8-78) U/L Beta HCG, Quant < 2 mIU/mL Urine Color Urine Appearance Urine pH (5.0-9.0) Ur Specific [place] (1.005-1.025) Urine Protein (Neg-Trace) mg/dL Urine Glucose (UA) (Negative) mg/dL Urine Ketones (Negative) mg/dL Urine Blood (Negative) Urine Nitrite (Negative) Ur Leukocyte Esterase (Negative) Urine RBC (0-2) /HPF Urine WBC (0-5) /HPF Ur Squamous Epith Cells (0-2) /HPF Urine Bacteria (None Seen) Hyaline Casts (0-2) /LPF Urine Opiates Screen Not Detected (Not Detect) Urine Fentanyl Screen Not Detected (Not Detect) Ur Barbiturates Screen Not Detected (Not Detect) Ur Phencyclidine Scrn Not Detected (Not Detect) Ur Amphetamines Screen Not Detected (Not Detect) U Benzodiazepines Scrn Not Detected (Not Detect) Urine Cocaine Screen Not Detected (Not Detect) U Marijuana (THC) Screen POSITIVE H (Not Detect) <Neptali Mazariegos - Last Filed: 09/02/22 22:23> Discharge Plan Discharge Clinical Impression: Acute nausea with nonbilious vomiting <BERTHA Olivo Last Filed: 09/02/22 13:41> Patient Disposition: Home, Self-Care <BERTHA Olivo Last Filed: 09/02/22 13:41> Instructions: Acute Nausea and Vomiting (ED) <BERTHA Olivo Last Filed: 09/02/22 13:41> Additional Instructions: Take Zofran as needed for nausea and vomiting. Drink lots of fluids, but small sips at a time. Your vomiting may be related to cannabis use. Some information suggests that vomiting may be related to using rolling papers while smoking <BERTHA Olivo Last Filed: 09/02/22 13:41> Prescriptions: New ondansetron 4 mg tablet,disintegrating 4 mg PO Q8H PRN (Reason: nausea and vomiting) Qty: 20 0RF No Action famotidine 20 mg tablet 20 mg PO BID nortriptyline 10 mg capsule 10 mg PO BEDTIME albuterol sulfate 90 mcg/actuation HFA aerosol inhaler 2 puff inhalation Q4H PRN (Reason: wheezing) fluoxetine 20 mg capsule 20 mg PO DAILY loratadine [Allergy Relief (loratadine)] 10 mg tablet 10 mg PO DAILY hydroxyzine pamoate 25 mg capsule 25 mg PO TID PRN (Reason: Anxiety) omeprazole 20 mg capsule,delayed release(DR/EC) 20 mg PO DAILY Qty: 30 0RF metoclopramide HCl [Reglan] 10 mg tablet 10 mg PO Q6H PRN (Reason: nausea and vomiting) Qty: 15 0RF ondansetron HCl [Zofran] 4 mg tablet 4 mg PO Q8H PRN (Reason: nausea and vomiting) Qty: 10 0RF famotidine [Pepcid] 20 mg tablet 20 mg PO DAILY Qty: 14 0RF alum-mag hydroxide-simeth [Maalox Advanced] 200-200-20 mg/5 mL suspension 5 ml PO 5XD PRN (Reason: dyspepsia) Qty: 30 0RF Rx Instructions: administer between meals and at bedtime ondansetron HCl 4 mg tablet 4 mg PO Q8H 4 Days Qty: 12 0RF <BERTHA Olivo - Last Filed: 09/02/22 13:41>
[2022-09-02 13:35] VITALS: BP 155/89; PULSE 68; RESP 18; TEMP 36.6; O2SAT 98; BMI 41.1
[2022-09-02 14:12] LABS: MANUAL DIFF FLAG NO
[2022-09-02 14:18] LABS: Basophils Percent Auto 0.3 % (0-2); Eosinophils Percent Auto 0.2 % (0-4); Hemoglobin 13.6 g/dl (12.0-16.0); Imm Gran Abs Auto 0.02 X10*3/uL (0.00-0.03); Imm Gran Pct Auto 0.2 % (0.0-0.4); Lymphocytes Absolute Auto 1.4 X10*3/uL (1.2-4.9); Lymphocytes Percent Auto 12.2 % (20-40); Mean Corpuscular HGB Conc 34.9 g/dl (31.0-35.0); Mean Corpuscular Hemoglobin 29.7 pg (27.0-33.0); Mean Corpuscular Volume 85.2 fL (80.0-98.0); Monocytes Absolute Auto 0.4 X10*3/uL (0.1-1.2); Monocytes Percent Auto 3.4 % (2-11); Neutrophils Absolute Auto 9.7 x10*3/uL (2.0-8.3); Neutrophils Percent Auto 83.7 % (45-73); Platelet Count 170 X10*3/uL (160-400); Red Blood Count 4.58 X10*6/uL (4.20-5.50); Red Cell Distribution Width 12.3 % (11.0-16.0); White Blood Count 11.6 X10*3/uL (4.8-10.8)
[2022-09-02 14:30] LABS: Alanine Aminotransferase 22 U/L (0-31); Albumin Level 4.5 g/dL (3.5-5.0); Alkaline Phosphatase 77 U/L (39-117); Anion Gap 18 (12-20); Aspartate Amino Transferase 20 U/L (5-31); Bilirubin Direct 0.2 mg/dL (0.0-0.5); Bilirubin Total 0.8 mg/dL (0.0-1.0); Blood Urea Nitrogen 9 mg/dL (9-16); Calcium 9.4 mg/dL (8.4-10.2); Carbon Dioxide 17 mmol/L (22-29); Chloride 106 mmol/L (96-108); Creatinine Clr Calc Pharmacy 124.8; Estimated Glomerular Filt Rate > 60; Glucose Random 133 mg/dL (60-115); Lipase 11 U/L (8-78); Magnesium 1.6 mg/dL (1.6-2.6); Potassium 3.3 mmol/L (3.3-5.1); Sodium 138 mmol/L (135-145); Total Protein 7.7 g/dL (6.5-8.0)
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
--- OUTSIDE RECORDS SUMMARY | 2022-09-02 15:50 | XMS_ITS | Continuity of Care Document ---
:1990 Author Organization [facility] ic Address [address] [place] [address]- Care Team Providers Name Role Phone Zeke CURTIS, Liya Primary Care Physician Encounter [facility] Date(s): 08/25/21 - 09/24/[address] [id number] Allergies, Adverse Reactions, Alerts Substance Reaction Severity Status Bee Stings Active Immunizations Given and Recorded Vaccine Date Status Refusal Reason tetanus/diphtheria/pertussis, acel(Tdap)1 05/11/12 Given influenza virus vaccine, inactivated 03/07/12 Given 1Admin Note: VIS given 07/13/2011 Medications ProAir HFA 90 mcg/inh inhalation aerosol with adapter See Instructions, PRN for wheezing, 2 puffs Inhalation as needed, 0 Refills, Maintenance, Aerosol Start Date: 11/10/11 Status: Ordered Problem List Condition Effective Dates Status Health Status Informant Environmental and seasonal Active allergies(Confirmed) H/O Asthma(Confirmed) Active H/O Bipolar(Confirmed) Active Carpal tunnel syndrome R Active wrist(Confirmed) H/O Depression(Confirmed) Active H/O Hiatal hernia(Confirmed) Active H/O section(Confirmed) 2011 Active H/O ADHD(Confirmed) Active H/O PTSD(Confirmed) Active H/O Pre-eclampsia(Confirmed)1 2011 Active Obesity(Confirmed)2 Active H/O Post- depression(Confirmed) Active 1ASA prescribed per [place] [facility] transfer [id number] Social History Social History Type Response Smoking Status Former smoker, quit more shaila n 30 days ago entered on: 09/08/21 Sex
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
--- OUTSIDE RECORDS SUMMARY | 2022-09-02 15:50 | XMS_ITS | Continuity of Care Document ---
:1990 Author Organization [facility] ic Address [address] [place] [address]- Care Team Providers Name Role Phone Liya Alanis NP Primary Care Physician Encounter [facility] [place] Date(s): 01/13/22 - 02/12/[address] [address]- Allergies, Adverse Reactions, Alerts Substance Reaction Severity [...] d 1Admin Note: VIS given 07/13/2011 Medications ibuprofen 600 mg oral tablet See Instructions, PRN, [...] 02/10/22 10:33:00 EDT, Route to Pharmacy Electronically, [facility]-, Partial fill upon patient... Start Date: 02/10/22 Stop Date: 02/13/22 Status: OrderedPepcid 20 mg oral tablet 1 tablet = 20 mg, By Mouth, 2 times a day, # 60 tablet, 0 Refills, Maintenance, 01/15/22 9:51:00 EDT, Tablet, [facility]-, Partial fill upon patient request if the [...] 02/16/22 10:34:00 EDT, 02/10/22 10:33:00 EDT, Capsule, [facility], Partial fill u... Start Date: 02/10/22 Stop [...] Request for sterilization(Confirmed) Active 1ASA prescribed per [place] [facility] transfer chart Social History Social History Type Response Smoking Status Former smoker, quit more shaila n 30 days ago entered on: 09/08/21 Sex Care Team PersonnelName: Liya Alanis NP Address: [address] [place] [address]
--- OUTSIDE RECORDS SUMMARY | 2022-09-02 15:50 | XMS_ITS | Continuity of Care Document ---
:1990 Author Organization [facility] ic Address [address] [place] [address]- Care Team Providers Name Role Phone Liya Alanis NP Primary Care Physician [place] [facility] [place] 01/07/22 - 02/06/[address] [address] Allergies, Adverse Reactions, Alerts Substance Reaction [...] II opioid drug. Start Date: 11/13/21 Status: OrderedPepcid 20 mg oral tablet 1 tablet = 20 mg, By Mouth, 2 times a day, # 60 tablet, 0 Refills, Maintenance, 01/15/22 9:51:00 EDT, Tablet, [facility]-, Partial fill upon patient request if [...] Active Desires (vaginal after Active ) trial(Confirmed) Obesity during (Confirmed) Active H/O Post- depression(Confirmed) Active (Confirmed) Active Severe obesity(Confirmed) Active Request for sterilization(Confirmed) Active 1ASA prescribed per [facility] transfer chart Social History Social History Type Response Smoking Status Former smoker, quit more shaila n 30 days ago entered on: 09/08/21 Sex
--- OUTSIDE RECORDS SUMMARY | 2022-09-02 15:50 | XMS_ITS | Continuity of Care Document ---
:1990 Author Organization [facility] ic Address [address] [place] [address]- Care Team Providers Name Role Phone Liya Alanis NP [id number] - 03/14/[address] [address] Attending Physician: Silvana Lopez DO Admitting Physician: Silvana Lopez DO Referring Physician: Nathaly Edmonds MD Allergies, Adverse Reactions, Alerts Substance Reaction [...] d 1Admin Note: VIS given 07/13/2011 Medications ohm Allergy Relief 10 mg oral tablet 0 Refills, Maintenance, 11/13/21 10:45:00 EDT, Partial fill upon patient request if the prescriptionis for a schedule II opioid drug. Start Date: 11/13/21 Status: OrderedPepcid 20 mg oral tablet 1 tablet = 20 mg, By Mouth, 2 times a day, # 60 tablet, 0 Refills, Maintenance, 01/15/22 9:51:00 EDT, Tablet, [facility]-, Partial fill upon patient request [...] Care Team PersonnelName: Liya Alanis NP Address: [address] [place] [address]
--- OUTSIDE RECORDS SUMMARY | 2022-09-02 15:50 | XMS_ITS | Continuity of Care Document ---
:1990 Author Organization [facility] Address [address] [place] [address]- Care Team Providers Name Role Phone Zeke CURTIS, Liya Primary Care Physician Encounter [facility] [place] Date(s): 01/22/22 - 03/25/[address] [address] Attending Physician: Jeremiah Chris MD Referring Physician: Anton Taylor DO Allergies, Adverse Reactions, Alerts Substance Reaction Severity [...] d 1Admin Note: VIS given 07/13/2011 Medications famotidine 20 mg oral tablet 1, tablet, By Mouth, 2 times a day, # 60 tablet, Refills 0, Maintenance, 03/20/22 10:31:00 EDT, Route to Pharmacy Electronically, [facility]-, 161, cm, 02/10/22 14:52:00 EDT, Height, 103, kg, 02/07/22 4:08:00 EDT, Dry Weight Start Date: 03/20/22 Status: Orderedohm Allergy Relief 10 mg oral [...] Desires Confirmed Active (vaginal after ) trial Obese class II Confirmed Active Obesity during Confirmed Active H/O Post- Confirmed Active depression Confirmed Active Request for Confirmed Active sterilization 1ASA prescribed per [place] [facility] transfer chart Social History Social History Type Response Smoking Status Former smoker, quit more shaila n 30 days ago entered on: 09/08/21 Sex Patient Care team information PersonnelName: Liya Alanis NP Address: Address: [address] [place] [id number]
--- OUTSIDE RECORDS SUMMARY | 2022-09-02 15:50 | XMS_ITS | Continuity of Care Document ---
:1990 Author Organization [facility] ic Address [address] [place] [id number]- Care Team Providers Name Role Phone Liya Alanis NP Primary Care Physician Encounter [facility] Date(s): 02/10/22 - 04/22/[address] [id number] Attending Physician: Sandrine Kim CNM Admitting Physician: Sandrine Kim CNM Allergies, Adverse Reactions, Alerts Substance Reaction Severity [...] 04/08/22 18:01:00 EDT, [facility] fill upon patient request if th... Start Date: 04/08/22 Stop Date: 06/07/22 Status: Orderedfamotidine 20 mg oral tablet 1, tablet, By Mouth, 2 times a day, # 60 tablet, Refills 0, Maintenance, 04/06/22 8:23:00 EDT, [facility] Electron[facility], [id number], 161, cm, 02/10/22 14:52:00 EDT, Height, 103, [...] for Confirmed Active sterilization 1ASA prescribed per [place] [facility] transfer chart Social History Social History Type Response Smoking Status Former smoker, quit more shaila n 30 days ago entered on: 09/08/21 Sex Patient Care team information PersonnelName: Liya Alanis NP Address: Address: [address] [place] [address] [place] [id number]
[2022-09-02 15:55] LABS: Appearance Urine Clear; Color Urine Yellow; Glucose Urine UA Negative (Negative); Leukocyte Esterase Urine Negative (Negative); Nitrite Urine Negative (Negative); PH >= 9.0 (5.0-9.0); UMIC TRIGGER UACC YES; Urine Blood Moderate (2+) (Negative); Urine Ketones 80 mg/dL (Negative); Urine Protein 100 (2+) mg/dL (Neg-Trace)
[2022-09-02 16:00] LABS: Bacteria Urine None Seen (None Seen); Hyaline Casts Urine 0-2 /LPF (0-2); RBC Urine >20 /HPF (0-2); WBC Urine 0-5 /HPF (0-5)
[2022-09-02 16:05] LABS: Amphetamine Screen Urine Not Detected (Not Detect); Barbiturates, Urine Not Detected (Not Detect); Benzodiazepines Screen Urine Not Detected (Not Detect); Cannabinoid Screen Urine POSITIVE (Not Detect); Cocaine Screen Urine Not Detected (Not Detect); Fentanyl, urine Not Detected (Not Detect); Opiate Screen Urine Not Detected (Not Detect); Phencyclidine Screen Urine Not Detected (Not Detect)
[2022-09-02] MEDS: ondansetron HCL 4 MG/2 ML VIAL IVPUSH ×2 (17:24→19:26)
[2022-09-02] MEDS: Pantoprazole Sodium 40 MG/10 ML VIAL IVPUSH (17:24)
[2022-09-02] MEDS: 0.9 % Sodium Chloride 1,000 ML 999 ML IV (17:24)
[2022-09-02 17:53] LABS: HCG Quantitative < 2 mIU/mL
[2022-09-02] MEDS: Lidocaine HCl Viscous 2 % 15 ML SOLUTION MUCOUS MEM (21:15)
[2022-09-02] MEDS: Haloperidol Lactate 5 MG/ML VIAL 2.5 MG IVPUSH (21:15)
[2022-09-02] MEDS: Magnesium Hydrox/Alum Hydrox 30 ML ORAL.SUSP PO (21:15)
[2022-09-02 23:21] VITALS: BP 151/92; PULSE 66; RESP 18; O2SAT 96
== END 2022-09-02 23:50 | disposition home or self-care (01) ==
PROVIDERS: Physician Assistant; Emergency Provider Emergency Medicine
DX: R11.2 Nausea with vomiting, unspecified (principal); F12.90 Cannabis use, unspecified, uncomplicated; Z79.899 Other long term (current) drug therapy
CPT/HCPCS: 36415; 80048; 80076; 80307; 81001; 83690; 83735; 84702; 85025; 96361; 96374; 96375; 96376; 99284; J2405

== ENCOUNTER 2022-11-01 18:15 | Emergency (ER) | payer OTHER, SELFPAY ==
[2022-11-01 18:24] VITALS: BP 146/86; BP 148/89; PULSE 53; PULSE 60; RESP 18; TEMP 37; O2SAT 100; O2SAT 99; BMI 43.3
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
[2022-11-01 20:12] LABS: Alanine Aminotransferase 18 U/L (0-31); Albumin Level 4.7 g/dL (3.5-5.0); Alkaline Phosphatase 84 U/L (39-117); Anion Gap 17 (12-20); Aspartate Amino Transferase 17 U/L (5-31); Bilirubin Direct 0.2 mg/dL (0.0-0.5); Bilirubin Total 0.9 mg/dL (0.0-1.0); Blood Urea Nitrogen 7 mg/dL (9-16); Calcium 9.9 mg/dL (8.4-10.2); Carbon Dioxide 20 mmol/L (22-29); Chloride 104 mmol/L (96-108); Creatinine Clr Calc Pharmacy 125.8; Estimated Glomerular Filt Rate > 60; Glucose Random 129 mg/dL (60-115); Lipase 9 U/L (8-78); Potassium 3.7 mmol/L (3.3-5.1); Sodium 137 mmol/L (135-145); Total Protein 7.9 g/dL (6.5-8.0)
[2022-11-01 21:10] VITALS: BP 148/93; PULSE 95; RESP 20; O2SAT 100
--- NOTE | 2022-11-01 21:12 | PC.NURSE ---
Pt ca&ox3. No signs of distress. Pt denies chest pain and sob. Pt reports 8/10 abdm pain and n/v. Vitals are stable. Will continue to monitor.
--- NOTE | 2022-11-01 21:16 | PC.NURSE ---
Pt reporting being cold and given warm blanket. Will continue to monitor.
[2022-11-01 23:01] VITALS: BP 147/83; PULSE 58; RESP 19; TEMP 37.1; O2SAT 100
[2022-11-01 23:27] LABS: Basophils Percent Auto 0.1 % (0-2); Hemoglobin 12.8 g/dl (12.0-16.0); Imm Gran Abs Auto 0.04 X10*3/uL (0.00-0.03); Imm Gran Pct Auto 0.4 % (0.0-0.4); Lymphocytes Absolute Auto 0.6 X10*3/uL (1.2-4.9); Lymphocytes Percent Auto 6.1 % (20-40); Mean Corpuscular HGB Conc 34.6 g/dl (31.0-35.0); Mean Corpuscular Hemoglobin 29.2 pg (27.0-33.0); Mean Corpuscular Volume 84.5 fL (80.0-98.0); Mean Platelet Volume 11.7 fL (9.4-12.3); Monocytes Absolute Auto 0.2 X10*3/uL (0.1-1.2); Monocytes Percent Auto 1.7 % (2-11); Neutrophils Absolute Auto 8.8 x10*3/uL (2.0-8.3); Neutrophils Percent Auto 91.7 % (45-73); Platelet Count 234 X10*3/uL (160-400); Red Blood Count 4.38 X10*6/uL (4.20-5.50); Red Cell Distribution Width 12.7 % (11.0-16.0); SCAN SMEAR FLAG 1; White Blood Count 9.6 X10*3/uL (4.8-10.8)
[2022-11-01 23:49] LABS: MANUAL DIFF FLAG SCAN
[2022-11-01 23:50] LABS: SLIDE REVIEW VERIFIED
[2022-11-02 00:12] VITALS: RESP 16
[2022-11-02] MEDS: Morphine Sulfate 4 MG/ML CARTRIDGE IVPUSH (00:12)
[2022-11-02] MEDS: 0.9 % Sodium Chloride 1,000 ML 999 ML IVCONT (00:12)
[2022-11-02] MEDS: ondansetron HCL 4 MG/2 ML VIAL IVPUSH (00:12)
[2022-11-02 01:27] VITALS: BP 135/88; PULSE 60; RESP 18; O2SAT 98
--- NOTE | 2022-11-02 01:33 | MHC.EDTECH ---
PT given claudine checo
--- NOTE | 2022-11-02 01:43 | ED_ITS ---
HPI - Abdominal Pain General Chief Complaint: Abdominal Pain Stated Complaint: NAUSEA VOMITING Time Seen by Provider: 11/01/22 21:38 Source: patient Mode of arrival: ambulatory Limitations: no limitations History of Present Illness HPI narrative: Patient comes to the emergency room complaining of nausea and vomiting today. Patient states that she ate undercooked pork the day before. Patient denies fever chills, complaining of abdominal cramping. Related Data Home Medications Medication Instructions Recorded Confirmed albuterol sulfate 90 mcg/actuation 2 puff inhalation Q4H PRN wheezing 11/20/20 11/20/20 aerosol inhaler famotidine 20 mg tablet 20 mg PO BID 11/20/20 11/20/20 fluoxetine 20 mg capsule 20 mg PO DAILY 11/20/20 11/20/20 hydroxyzine pamoate 25 mg capsule 25 mg PO TID PRN Anxiety 11/20/20 11/20/20 loratadine 10 mg tablet (Allergy 10 mg PO DAILY 11/20/20 11/20/20 Relief (loratadine)) nortriptyline 10 mg capsule 10 mg PO BEDTIME 11/20/20 11/20/20 Previous Rx's Medication Instructions Recorded omeprazole 20 mg capsule,delayed 20 mg PO DAILY Acid reflux #30 caps 11/20/20 release aluminum-mag hydroxide-simethicone 5 ml PO 5XD PRN dyspepsia #30 mL 05/17/21 200 mg-200 mg-20 mg/5 mL oral susp (Maalox Advanced) famotidine 20 mg tablet (Pepcid) 20 mg PO DAILY #14 tabs 05/17/21 ondansetron HCl 4 mg tablet 4 mg PO Q8H PRN nausea and 05/17/21 (Zofran) vomiting #10 tabs metoclopramide HCl 10 mg tablet 10 mg PO Q6H PRN nausea and 06/22/21 (Reglan) vomiting #15 tabs ondansetron HCl 4 mg tablet 4 mg PO Q8H prn nausea 4 days #12 06/24/21 tabs ondansetron 4 mg disintegrating 4 mg PO Q8H PRN nausea and 09/02/22 tablet vomiting #20 tabs ondansetron 4 mg disintegrating 4 mg PO Q6H PRN nausea and 11/02/22 tablet vomiting #14 tabs Allergies Allergy/AdvReac Type Severity Reaction Status Date / Time bee pollen [BEE STINGS] Allergy Unknown SWELLING Verified 11/01/22 18:27 Review of Systems Review of Systems Constitutional : No Weight loss, No Fever, No Chills, No Night Sweats, No Fatigue, No Malaise ENT/Mouth : No Hearing loss, No Ear Pain, No Nasal Congestion, No Sinus Pain, No Hoarseness, No sore throat, No Rhinorrhea, No Swallowing Difficulty Eyes: No Eye Pain, No Swelling, No Redness, No Foreign Body, No Discharge, No Vision Changes Cardiovascular : No Chest Pain, No SOB, No Dyspnea on Exertion, No Orthopnea, No Edema, No Palpitations Respiratory : No Cough, No Sputum, No Wheezing, No Smoke Exposure, No Dyspnea Gastrointestinal : Complaining of nausea and vomiting No Diarrhea, No Constipation, complaining of abdominal cramping, No Hematochezia, No Melena Genitourinary : no irregular bleeding, No Dysuria, No Urinary Frequency, No Hematuria, No Urinary Incontinence, No Urgency, No Flank Pain, No Urinary Flow Changes, No Hesitancy Musculoskeletal : No joint pain, No Myalgias, No Joint Swelling Skin : No Skin Lesions, No rash Neuro : No Weakness, No Numbness, No Paresthesias, No Loss of Consciousness, No Dizziness, No Headache Psych : No Anxiety/Panic, No Depression, No SI/HI/AH/VH, No Social Issues, Heme/Lymph: No Bruising, No Bleeding,No Lymphadenopathy Endocrine : No Polyuria, No Polydipsia, No Temperature Intolerance PMFSH Past Medical History Medical History Asthma Social History Social History Alcohol intake: never Patient Tobacco Use Status: Never used Tobacco Smoked in Last 30 Days: No Use of substances other than those prescribed or required for medical reasons: No Substance Use Type: Marijuana Advance Directives: No Advance Directives Information Provided: Yes Patient : No Physical Exam ED Vital Signs: Vital Signs - 24 hr 11/01/22 18:24 11/01/22 21:10 11/01/22 23:01 Temperature 98.6 F 98.8 F Pulse Rate 53 95 58 Respiratory Rate 18 20 19 Blood Pressure 148/89 H 148/93 H 147/83 H Pulse Oximetry 100 100 100 Oxygen Delivery Method Room Air Room Air Room Air 11/02/22 00:12 11/02/22 01:27 Temperature Pulse Rate 60 Respiratory Rate 16 18 Blood Pressure 135/88 Pulse Oximetry 98 Oxygen Delivery Method Room Air BMI result Body Mass Index 43.3 Const Other: Appearance: Alert. Oriented X3. No acute distress. Eyes: Pupils equal, round and reactive to light. ENT: Pharynx normal. Neck: Normal inspection. Neck supple. No lymph nodes noted. No crepitus CVS: Normal heart rate and rhythm. Pulses normal. Normal S1 and S2 Respiratory: No respiratory distress. Breath sounds normal. No Wheezing. No rales Abdomen: Soft and nontender. No rigidity. No distention. Skin: Skin warm and dry. Normal skin color. Normal skin turgor. Extremities: No lower extremity edema. No Lacerations. No Rash Neuro: Oriented X 3. No motor deficit. No sensory deficit. Moving all extremities. No slurred speech. CN 2 through 12 grossly intact Psych: calm, cooperative, normal affect Medical Decision Making Medical Decision Making [facility] Narrative: -patient has very poor access, multiple nurses try getting IV access unsuccessfully. I inserted a right internal jugular with IV guidance -Patient's physical exam is relatively normal. No pain to palpation in the abdomen electrolytes fairly stable, white blood cell count 9.6 within normal limits. -patient was hydrated given Zofran, morphine. Patient ready for discharge Differential Diagnosis Differential Diagnoses: The differential diagnosis associated with the presentation includes (Gastroenteritis, gastritis, food poisoning) Lab Data [facility] Lab Attestation statement: I reviewed the patient's lab results. 11/01/22 23:22 11/01/22 19:50 Labs: Lab Results 11/01/22 11/01/22 Range/Units 19:50 23:22 WBC 9.6 (4.8-10.8) X10*3/uL RBC 4.38 (4.20-5.50) X10*6/uL Hgb 12.8 (12.0-16.0) g/dl Hct 37.0 (37.0-47.0) % MCV 84.5 (80.0-98.0) fL MCH 29.2 (27.0-33.0) pg MCHC 34.6 (31.0-35.0) g/dl RDW 12.7 (11.0-16.0) % Plt Count 234 D (160-400) X10*3/uL MPV 11.7 (9.4-12.3) fL Immature Gran % (Auto) 0.4 (0.0-0.4) % Neut % (Auto) 91.7 H (45-73) % Lymph % (Auto) 6.1 L (20-40) % [place] % (Auto) 1.7 L (2-11) % Eos % (Auto) 0.0 (0-4) % Baso % (Auto) 0.1 (0-2) % Lymph # (Auto) 0.6 L (1.2-4.9) X10*3/uL [place] # (Auto) 0.2 (0.1-1.2) X10*3/uL Eos # (Auto) 0.0 (0.0-0.4) X10*3/uL Baso # (Auto) 0.0 (0.0-0.2) X10*3/uL Abs Immat Gran (auto) 0.04 H (0.00-0.03) X10*3/uL Absolute Neuts (auto) 8.8 H (2.0-8.3) x10*3/uL Absolute Nucleated RBC 0.000 (0.0-0.012) X10*3/uL Nucleated RBC % (auto) 0.0 (0.0-0.2) /100WBC Smear Tech's Comments VERIFIED Sodium 137 (135-145) mmol/L Potassium 3.7 (3.3-5.1) mmol/L Chloride 104 (96-108) mmol/L Carbon Dioxide 20 L (22-29) mmol/L Anion Gap 17 (12-20) BUN 7 L (9-16) mg/dL Creatinine 0.74 (0.5-1.4) mg/dL Estim Creat Clear Calc 125.8 Estimated GFR > 60 Random Glucose 129 H (60-115) mg/dL Calcium 9.9 (8.4-10.2) mg/dL Total Bilirubin 0.9 (0.0-1.0) mg/dL Direct Bilirubin 0.2 (0.0-0.5) mg/dL AST 17 (5-31) U/L ALT 18 (0-31) U/L Alkaline Phosphatase 84 (39-117) U/L Total Protein 7.9 (6.5-8.0) g/dL Albumin 4.7 (3.5-5.0) g/dL Lipase 9 (8-78) U/L Medications Administered Discontinued Medications Generic Name Dose Route Start Last Admin Trade Name Freq PRN Reason Stop Dose Admin Sodium Chloride 1,000 mls @ 999 mls/hr 11/01/22 23:31 11/02/22 00:12 Ns IVCONT 11/02/22 00:31 999 mls/hr .Q1H1M ONE Administration Morphine Sulfate 4 mg 11/01/22 23:11/02/22 00:12 Morphine Sulfate 4 Mg/Ml Cartridge IVPUSH 11/01/22 23:32 4 mg ONCE ONE Administration Protocol Ondansetron HCl 4 mg 11/01/22 23:31 11/02/22 00:12 Ondansetron Hcl 4 Mg/2 Ml Vial IVPUSH 11/01/22 23:32 4 mg ONCE ONE Administration Discharge Plan Discharge Clinical Impression: Nausea & vomiting Patient Disposition: Home, Self-Care Instructions: Acute Nausea and Vomiting (ED) Additional Instructions: Please follow-up with your primary care physician tomorrow. If you have any worsening or new symptoms, please return to the emergency room or call 911 Prescriptions: New ondansetron 4 mg tablet,disintegrating 4 mg PO Q6H PRN (Reason: nausea and vomiting) Qty: 14 0RF No Action famotidine 20 mg tablet 20 mg PO BID nortriptyline 10 mg capsule 10 mg PO BEDTIME albuterol sulfate 90 mcg/actuation HFA aerosol inhaler 2 puff inhalation Q4H PRN (Reason: wheezing) fluoxetine 20 mg capsule 20 mg PO DAILY loratadine [Allergy Relief (loratadine)] 10 mg tablet 10 mg PO DAILY hydroxyzine pamoate 25 mg capsule 25 mg PO TID PRN (Reason: Anxiety) omeprazole 20 mg capsule,delayed release(DR/EC) 20 mg PO DAILY Qty: 30 0RF metoclopramide HCl [Reglan] 10 mg tablet 10 mg PO Q6H PRN (Reason: nausea and vomiting) Qty: 15 0RF ondansetron 4 mg tablet,disintegrating 4 mg PO Q8H PRN (Reason: nausea and vomiting) Qty: 20 0RF ondansetron HCl [Zofran] 4 mg tablet 4 mg PO Q8H PRN (Reason: nausea and vomiting) Qty: 10 0RF famotidine [Pepcid] 20 mg tablet 20 mg PO DAILY Qty: 14 0RF alum-mag hydroxide-simeth [Maalox Advanced] 200-200-20 mg/5 mL suspension 5 ml PO 5XD PRN (Reason: dyspepsia) Qty: 30 0RF Rx Instructions: administer between meals and at bedtime ondansetron HCl 4 mg tablet 4 mg PO Q8H 4 Days Qty: 12 0RF
[2022-11-02] MEDS: Magnesium Hydrox/Alum Hydrox 30 ML ORAL.SUSP PO (02:23)
[2022-11-02 02:30] VITALS: BP 151/90; PULSE 59; RESP 16; TEMP 36.8; O2SAT 99
== END 2022-11-02 02:41 | disposition home or self-care (01) ==
PROVIDERS: Emergency Provider Emergency Medicine
DX: R11.2 Nausea with vomiting, unspecified (principal); R10.2 Pelvic and perineal pain; Z79.899 Other long term (current) drug therapy
CPT/HCPCS: 36415; 80053; 82248; 83690; 85025; 96361; 96374; 96375; 99284; J2270; J2405

== ENCOUNTER 2023-01-21 08:43 | Emergency (ER) | payer OTHER, SELFPAY ==
[2023-01-21] VITALS (7 sets, daily range): BP systolic 134–177; BP diastolic 78–105; PULSE 51–62; RESP 16–17; TEMP 36.6–37; O2SAT 98–100; BMI 39.4
--- NOTE | ~2023-01-21 | CT_ITS ---
EXAMINATION: CT ABDOMEN AND PELVIS WITH CONTRAST CLINICAL INFORMATION: Abdominal pain. COMPARISON: 11/20/2020 TECHNIQUE: Multidetector volumetric images were obtained from the superior aspect of the liver through the pubic symphysis following administration 85 mL of Omnipaque 350 intravenous contrast. Sagittal and coronal reformatted images were obtained on the technologist's workstation. Oral contrast: No This CT examination was performed using dose optimization techniques as appropriate, variously including the following: *Automated exposure control *Adjustment of mA and/or kV according to patient size (this includes techniques or standardized protocols for targeted exams where dose is matched to indication/reason for exam; i.e. extremities or head) *Use of iterative reconstruction technique DLP: 778 mGy-cm FINDINGS: LUNG BASES: Small hiatal hernia. LIVER, GALLBLADDER, AND BILIARY TREE: The liver is normal in size and contour. No focal hepatic lesion or biliary ductal dilatation is present. The gallbladder is unremarkable with no evidence of radiopaque gallstones, gallbladder wall thickening, or obvious pericholecystic inflammatory changes. PANCREAS: No ductal dilatation. SPLEEN: Not enlarged. ADRENAL GLANDS: No adrenal mass. KIDNEYS AND URETERS: The kidneys are symmetric in size and enhancement. No hydronephrosis or perinephric stranding. BLADDER: Unremarkable. GASTROINTESTINAL TRACT: Wall thickening of mid small bowel loops in the central abdomen. No bowel obstruction. Appendix is within normal limits. ABDOMINAL WALL: No significant hernia is appreciated. LYMPH NODES: Few subcentimeter mesenteric lymph nodes. VASCULAR: Normal caliber abdominal aorta. PELVIC VISCERA: The uterus and adnexa are unremarkable. Trace free fluid in pelvis. OSSEOUS STRUCTURES: No destructive bone lesions. CT/CT abdomen pelvis w IV con IMPRESSION: Wall thickening of mid small bowel loops in the central abdomen. Few subcentimeter mesenteric lymph nodes. This may represent enteritis. Infectious and inflammatory etiologies should be considered.
[2023-01-21] MEDS: diphenhydrAMINE HCL 50 MG/ML VIAL 25 MG IVPUSH (09:23)
[2023-01-21] MEDS: ondansetron HCL 4 MG/2 ML VIAL IVPUSH ×2 (09:23→11:51)
[2023-01-21] MEDS: 0.9 % Sodium Chloride 1,000 ML 999 ML IV (09:24)
[2023-01-21] MEDS: Famotidine/PF 20 MG/2 ML VIAL IVPUSH (09:25)
--- NOTE | 2023-01-21 09:35 | ED.GENADULT ---
HPI - General Adult General Chief complaint: Abdominal Pain Stated complaint: Vomiting, abd pain per EMS Time Seen by Provider: 01/21/23 08:45 Source: patient Mode of arrival: ambulatory Limitations: no limitations History of Present Illness HPI narrative: 32-year-old female presents to he ED for epigastric abdominal pain described as acid burning sensatino after eating stake from with onions form restaraunt last night. patient states having symptmos since last night. patient denies any lower abdominal pain, RUQ pain, dysuria, hematuria, flank pain, or vaginal bleeding. patient has history of GERD and takes omeprazole. Related Data Home Medications Medication Instructions Recorded Confirmed albuterol sulfate 90 mcg/actuation 2 puff inhalation Q4H PRN wheezing 11/20/20 11/20/20 aerosol inhaler famotidine 20 mg tablet 20 mg PO BID 11/20/20 11/20/20 fluoxetine 20 mg capsule 20 mg PO DAILY 11/20/20 11/20/20 hydroxyzine pamoate 25 mg capsule 25 mg PO TID PRN Anxiety 11/20/20 11/20/20 loratadine 10 mg tablet (Allergy 10 mg PO DAILY 11/20/20 11/20/20 Relief (loratadine)) nortriptyline 10 mg capsule 10 mg PO BEDTIME 11/20/20 11/20/20 Previous Rx's Medication Instructions Recorded omeprazole 20 mg capsule,delayed 20 mg PO DAILY Acid reflux #30 caps 11/20/20 release aluminum-mag hydroxide-simethicone 5 ml PO 5XD PRN dyspepsia #30 mL 05/17/21 200 mg-200 mg-20 mg/5 mL oral susp (Maalox Advanced) famotidine 20 mg tablet (Pepcid) 20 mg PO DAILY #14 tabs 05/17/21 ondansetron HCl 4 mg tablet 4 mg PO Q8H PRN nausea and 05/17/21 (Zofran) vomiting #10 tabs metoclopramide HCl 10 mg tablet 10 mg PO Q6H PRN nausea and 06/22/21 (Reglan) vomiting #15 tabs ondansetron HCl 4 mg tablet 4 mg PO Q8H prn nausea 4 days #12 06/24/21 tabs ondansetron 4 mg disintegrating 4 mg PO Q8H PRN nausea and 03/16/23 tablet vomiting #20 tabs ondansetron 4 mg disintegrating 4 mg PO Q6H PRN nausea and 11/02/22 tablet vomiting #14 tabs potassium chloride 20 mEq 20 meq PO DAILY #3 tabs 01/22/23 tablet,extended release promethazine 12.5 mg rectal 12.5 mg [place] BID PRN nausea and 01/22/23 suppository vomiting #12 ea Allergies Allergy/AdvReac Type Severity Reaction Status Date / Time bee pollen [BEE STINGS] Allergy Unknown SWELLING Verified 11/01/22 18:27 [facility] Past Medical History Medical History Asthma Social History Social History Alcohol intake: current Alcohol intake frequency: holidays/special occasions only Patient Tobacco Use Status: Never used Tobacco Smoked in Last 30 Days: No Use of substances other than those prescribed or required for medical reasons: Yes Substance Use Type: Marijuana Substance Use Frequency: Daily Last Used Substance: Days (ago) Advance Directives: No Advance Directives Information Provided: No Physical Exam ED Vital Signs: Vital Signs - 24 hr 01/21/23 08:50 01/21/23 09:00 01/21/23 12:24 Temperature 98.1 F 98 F Pulse Rate 52 52 51 Respiratory Rate 16 17 16 Blood Pressure 167/79 H 167/79 H 152/92 H Pulse Oximetry 100 98 99 Oxygen Delivery Method Room Air Room Air Room Air 01/21/23 15:13 Temperature 98.6 F Pulse Rate 53 Respiratory Rate 16 Blood Pressure 177/100 H Pulse Oximetry 100 Oxygen Delivery Method Room Air BMI result Body Mass Index 39.4 Const General: cooperative, healthy appearing, comfortable, no acute distress, well developed, alert, awake and Physically active Orientation/consciousness: oriented to person, oriented to place, oriented to time and patient oriented x3 HENMT Head: Yes normal to inspection, Yes No palpable skull fracture present, Yes normocephalic, Yes atraumatic and No abrasion Eyes General: appearance normal, both eyes and all related structures Neck Neck: Yes normal visual inspection, Yes full ROM, Yes no lymphadenopathy, Yes no meningeal signs, Yes trachea midline, Yes supple, No anterior neck swelling and No tender Chest Chest palpation & inspection: normal inspection of the chest and normal palpation of entire chest wall Resp Effort & Inspection: normal respiratory effort and able to speak in complete sentences Auscultation: clear to auscultation bilaterally Cardio Jugular venous distension: no JVD Heart sounds: S1 normal heart sound present and S2 normal heart sound present GI Inspection: Yes normal to inspection and No abdominal wall ecchymosis Palpation (GI): Soft to palpation, not firm, Tenderness to palpation present (GI) in the epigastrum; not in the LLQ, not in the RLQ, not in the LUQ, not in the RUQ, not at McBurney's point, not periumbilically, not suprapubicly, Lui's sign negative, obturator sign negative, psoas sign negative, with no rebound tenderness and Rovsing's sign negative, no guarding and not rigid General: No CVA tenderness and Yes no CVA tenderness Back/Spine/Pelvis Back: no CVA tenderness, No CVA tenderness and No back tenderness Skin General skin exam: no rashes or lesions noted, elasticity normal and turgor normal Neuro General: oriented to person, oriented to place, oriented to time, patient oriented x3, gait normal, tone normal, moves all extremities, Normal light touch and pain sensation, no meningeal signs, no focal motor deficits, CN's II-XI intact bilaterally and normal sensation to monofilament Extrem General: Yes normal to inspection and Yes full ROM Psych Appearance: grossly normal, well kempt and not disheveled Medications Administered Discontinued Medications Generic Name Dose Route Start Last Admin Trade Name Freq PRN Reason Stop Dose Admin Al Hydroxide/Mg Hydroxide 30 ml 01/21/23 09:12 01/21/23 10:27 Magnesium Hydrox/Alum Hydrox 30 Ml Oral.Susp PO 01/21/23 09:13 30 ml ONCE ONE Administration Belladonna Alkaloids/Phenobarbital 10 ml 01/21/23 09:12 01/21/23 10:28 Phenobarb/Hyoscy/Atropine/Scop 10 Ml Elixir PO 01/21/23 09:13 10 ml ONCE ONE Administration Diphenhydramine HCl 25 mg 01/21/23 09:12 01/21/23 09:23 Diphenhydramine Hcl 50 Mg/Ml Vial IVPUSH 01/21/23 09:13 25 mg ONCE ONE Administration Famotidine 20 mg 01/21/23 09:12 01/21/23 09:25 Famotidine/Pf 20 Mg/2 Ml Vial IVPUSH 01/21/23 09:13 20 mg ONCE ONE Administration Sodium Chloride 1,000 mls @ 999 mls/hr 01/21/23 08:49 01/21/23 12:00 Ns IV 01/21/23 09:49 Infused .Q1H1M STA Infusion Iohexol 85 ml 01/21/23 14:27 01/21/23 14:28 Iohexol 350 Mg/Ml 75 Ml Infus..Btl IV 01/21/23 14:28 85 ml ONCE ONE Administration Lidocaine HCl 15 ml 01/21/23 09:12 01/21/23 10:28 Lidocaine Hcl Viscous 2 % 15 Ml Solution MUCOUS MEM 01/21/23 09:13 15 ml ONCE ONE Administration Ondansetron HCl 4 mg 01/21/23 08:54 01/21/23 09:23 Ondansetron Hcl 4 Mg/2 Ml Vial IVPUSH 01/21/23 08:55 4 mg ONCE ONE Administration Ondansetron HCl 4 mg 01/21/23 11:47 01/21/23 11:51 Ondansetron Hcl 4 Mg/2 Ml Vial IVPUSH 01/21/23 11:48 4 mg ONCE ONE Administration Prochlorperazine Edisylate 10 mg 01/21/23 19:37 01/21/23 19:47 Prochlorperazine Edisylate 10 Mg/2 Ml Vial IVPUSH 01/21/23 19:38 10 mg ONCE ONE Administration Medical Decision Making Medical Decision Making MDM Narrative: 32 yold old female with pmh of GERD presents to the ED epigastric abdominal pain described acid burning sensation since last night after eating steak and onions with spicy dressing from the restaurant. Patient denies any lower abdominal pain or any symptoms. Labs meds ordered 5:03pm: Patient CT scan shows Enteritis. Patient feels better. Abdomen no longer tender. Patient not on menstruation. CT scan negative for kidney stones. UA shows blood but no infection. Patient passed p.o. challenge. Patient educated on brat diet Differential Diagnosis Differential Diagnoses: The differential diagnosis associated with the presentation includes (Appendicitis, colitis UTI, gastritis, cholecystitis, GERD, food poisoining) Admission/Observation Consideration of admission/observation: Escalation of care including admission/observation considered Lab Data MDM Lab Attestation statement: I reviewed the patient's lab results. 01/21/23 10:39 01/21/23 10:39 Labs: Lab Results 01/21/23 01/21/23 01/21/23 Range/Units 10:22 10:22 10:39 WBC 8.7 (4.8-10.8) X10*3/uL RBC 4.22 (4.20-5.50) X10*6/uL Hgb 11.9 L (12.0-16.0) g/dl Hct 35.4 L (37.0-47.0) % MCV 83.9 (80.0-98.0) fL MCH 28.2 (27.0-33.0) pg MCHC 33.6 (31.0-35.0) g/dl RDW 13.1 (11.0-16.0) % Plt Count 198 (160-400) X10*3/uL MPV 12.2 (9.4-12.3) fL Immature Gran % (Auto) 0.5 H (0.0-0.4) % Neut % (Auto) 89.8 H (45-73) % Lymph % (Auto) 7.5 L (20-40) % [place] % (Auto) 2.1 (2-11) % Eos % (Auto) 0.0 (0-4) % Baso % (Auto) 0.1 (0-2) % Lymph # (Auto) 0.7 L (1.2-4.9) X10*3/uL [place] # (Auto) 0.2 (0.1-1.2) X10*3/uL Eos # (Auto) 0.0 (0.0-0.4) X10*3/uL Baso # (Auto) 0.0 (0.0-0.2) X10*3/uL Abs Immat Gran (auto) 0.04 H (0.00-0.03) X10*3/uL Absolute Neuts (auto) 7.8 (2.0-8.3) x10*3/uL Absolute Nucleated RBC 0.000 (0.0-0.012) X10*3/uL Nucleated RBC % (auto) 0.0 (0.0-0.2) /100WBC PT (11.1-13.3) SEC INR (0.9-1.1) APTT (26.0-36.4) SEC Sodium (135-145) mmol/L Potassium (3.3-5.1) mmol/L Chloride (96-108) mmol/L Carbon Dioxide (22-29) mmol/L Anion Gap (12-20) BUN (9-16) mg/dL Creatinine (0.5-1.4) mg/dL Estim Creat Clear Calc Estimated GFR Random Glucose (60-115) mg/dL Calcium (8.4-10.2) mg/dL Total Bilirubin (0.0-1.0) mg/dL AST (5-31) U/L ALT (0-31) U/L Alkaline Phosphatase (39-117) U/L Total Protein (6.5-8.0) g/dL Albumin (3.5-5.0) g/dL Lipase (8-78) U/L Beta HCG, Quant mIU/mL Urine Color Yellow Urine Appearance Clear Urine pH 8.5 (5.0-9.0) Ur Specific [place] 1.020 (1.005-1.025) Urine Protein 300 (3+) H (Neg-Trace) mg/dL Urine Glucose (UA) Negative (Negative) mg/dL Urine Ketones 80 (Negative) mg/dL Urine Blood Moderate (2+) H (Negative) Urine Nitrite Negative (Negative) Ur Leukocyte Esterase Negative (Negative) Urine RBC >20 H (0-2) /HPF Urine WBC 6-10 H (0-5) /HPF Ur Squamous Epith Cells 3-5 (0-2) /HPF Urine Bacteria None Seen (None Seen) Hyaline Casts 0-2 (0-2) /LPF Urine Test NEGATIVE (NEGATIVE) 01/21/23 01/21/23 Range/Units 10:39 10:39 WBC (4.8-10.8) X10*3/uL RBC (4.20-5.50) X10*6/uL Hgb (12.0-16.0) g/dl Hct (37.0-47.0) % MCV (80.0-98.0) fL MCH (27.0-33.0) pg MCHC (31.0-35.0) g/dl RDW (11.0-16.0) % Plt Count (160-400) X10*3/uL MPV (9.4-12.3) fL Immature Gran % (Auto) (0.0-0.4) % Neut % (Auto) (45-73) % Lymph % (Auto) (20-40) % [place] % (Auto) (2-11) % Eos % (Auto) (0-4) % Baso % (Auto) (0-2) % Lymph # (Auto) (1.2-4.9) X10*3/uL [place] # (Auto) (0.1-1.2) X10*3/uL Eos # (Auto) (0.0-0.4) X10*3/uL Baso # (Auto) (0.0-0.2) X10*3/uL Abs Immat Gran (auto) (0.00-0.03) X10*3/uL Absolute Neuts (auto) (2.0-8.3) x10*3/uL Absolute Nucleated RBC (0.0-0.012) X10*3/uL Nucleated RBC % (auto) (0.0-0.2) /100WBC PT 13.6 H (11.1-13.3) SEC INR 1.1 (0.9-1.1) APTT 27.4 (26.0-36.4) SEC Sodium 136 (135-145) mmol/L Potassium 3.3 (3.3-5.1) mmol/L Chloride 106 (96-108) mmol/L Carbon Dioxide 18 L (22-29) mmol/L Anion Gap 15 (12-20) BUN 5 L (9-16) mg/dL Creatinine 0.70 (0.5-1.4) mg/dL Estim Creat Clear Calc 135.5 Estimated GFR > 60 Random Glucose 127 H (60-115) mg/dL Calcium 9.2 D (8.4-10.2) mg/dL Total Bilirubin 0.5 (0.0-1.0) mg/dL AST 15 (5-31) U/L ALT 18 (0-31) U/L Alkaline Phosphatase 82 (39-117) U/L Total Protein 7.8 (6.5-8.0) g/dL Albumin 4.3 (3.5-5.0) g/dL Lipase 7 L (8-78) U/L Beta HCG, Quant < 2 mIU/mL Urine Color Urine Appearance Urine pH (5.0-9.0) Ur Specific [place] (1.005-1.025) Urine Protein (Neg-Trace) mg/dL Urine Glucose (UA) (Negative) mg/dL Urine Ketones (Negative) mg/dL Urine Blood (Negative) Urine Nitrite (Negative) Ur Leukocyte Esterase (Negative) Urine RBC (0-2) /HPF Urine WBC (0-5) /HPF Ur Squamous Epith Cells (0-2) /HPF Urine Bacteria (None Seen) Hyaline Casts (0-2) /LPF Urine Test (NEGATIVE) Independent Interpretation I performed an independent interpretation of an: CT Scan Radiology Impression Discussion of test interpretation with radiology: I have reviewed the radiologist's reading. External Record Review External record reviewed: Other (Prior ED visit) Prescription Management I considered prescription management with: Other (tylenol) Discharge Plan Discharge Clinical Impression: Gastroenteritis, Abdominal pain Patient Disposition: Home, Self-Care Instructions: Gastroenteritis (ED), Abdominal Pain (ED) Additional Instructions: CT scan shows gastroenteritis. Recommend oral hydration and [id number] Tylenol at home. Continue taking omeprazole for the acid reflux. Return to the ED for any chest pain, shortness of breath, abdominal pain, inability to tolerate solid food/liquid, dysuria, hematuria, fever, chills, or any other concerning symptoms. Please follow-up primary care provider Prescriptions: No Action famotidine 20 mg tablet 20 mg PO BID nortriptyline 10 mg capsule 10 mg PO BEDTIME albuterol sulfate 90 mcg/actuation HFA aerosol inhaler 2 puff inhalation Q4H PRN (Reason: wheezing) fluoxetine 20 mg capsule 20 mg PO DAILY loratadine [Allergy Relief (loratadine)] 10 mg tablet 10 mg PO DAILY hydroxyzine pamoate 25 mg capsule 25 mg PO TID PRN (Reason: Anxiety) omeprazole 20 mg capsule,delayed release(DR/EC) 20 mg PO DAILY Qty: 30 0RF metoclopramide HCl [Reglan] 10 mg tablet 10 mg PO Q6H PRN (Reason: nausea and vomiting) Qty: 15 0RF ondansetron 4 mg tablet,disintegrating 4 mg PO Q8H PRN (Reason: nausea and vomiting) Qty: 20 0RF ondansetron HCl [Zofran] 4 mg tablet 4 mg PO Q8H PRN (Reason: nausea and vomiting) Qty: 10 0RF famotidine [Pepcid] 20 mg tablet 20 mg PO DAILY Qty: 14 0RF alum-mag hydroxide-simeth [Maalox Advanced] 200-200-20 mg/5 mL suspension 5 ml PO 5XD PRN (Reason: dyspepsia) Qty: 30 0RF Rx Instructions: administer between meals and at bedtime ondansetron HCl 4 mg tablet 4 mg PO Q8H 4 Days Qty: 12 0RF ondansetron 4 mg tablet,disintegrating 4 mg PO Q6H PRN (Reason: nausea and vomiting) Qty: 14 0RF promethazine 12.5 mg suppository 12.5 mg [place] BID PRN (Reason: nausea and vomiting) Qty: 12 0RF Rx Instructions: do not give 3rd daily dose after evening meal or within 4hr before bed potassium chloride 20 mEq tablet extended release 20 meq PO DAILY Qty: 3 0RF Stand Alone Forms: Work/School Release Interventions: ED Discharge Assessment Last Done: 01/21/23 20:45 Discharge Date/Time: 01/21/23 20:45 Print Language: Wallisian
[2023-01-21] MEDS: Magnesium Hydrox/Alum Hydrox 30 ML ORAL.SUSP PO (10:27)
[2023-01-21] MEDS: Lidocaine HCl Viscous 2 % 15 ML SOLUTION MUCOUS MEM (10:28)
[2023-01-21] MEDS: PHENobarb/Hyoscy/Atropine/Scop 10 ML ELIXIR PO (10:28)
[2023-01-21 10:30] LABS: Appearance Urine Clear; Color Urine Yellow; Glucose Urine UA Negative (Negative); Leukocyte Esterase Urine Negative (Negative); Nitrite Urine Negative (Negative); PH 8.5 (5.0-9.0); UMIC TRIGGER UACC YES; Urine Blood Moderate (2+) (Negative); Urine Ketones 80 mg/dL (Negative); Urine Protein 300 (3+) mg/dL (Neg-Trace)
[2023-01-21 10:31] LABS: UPreg QC Valid YES; Urine Pregnancy NEGATIVE (NEGATIVE)
[2023-01-21 10:32] LABS: Bacteria Urine None Seen (None Seen); Hyaline Casts Urine 0-2 /LPF (0-2); RBC Urine >20 /HPF (0-2); UACC Culture Trigger YES
[2023-01-21 10:50] LABS: MANUAL DIFF FLAG NO
[2023-01-21 10:51] LABS: Basophils Percent Auto 0.1 % (0-2); Hematocrit 35.4 % (37.0-47.0); Hemoglobin 11.9 g/dl (12.0-16.0); Imm Gran Abs Auto 0.04 X10*3/uL (0.00-0.03); Imm Gran Pct Auto 0.5 % (0.0-0.4); Lymphocytes Absolute Auto 0.7 X10*3/uL (1.2-4.9); Lymphocytes Percent Auto 7.5 % (20-40); Mean Corpuscular HGB Conc 33.6 g/dl (31.0-35.0); Mean Corpuscular Hemoglobin 28.2 pg (27.0-33.0); Mean Corpuscular Volume 83.9 fL (80.0-98.0); Mean Platelet Volume 12.2 fL (9.4-12.3); Monocytes Absolute Auto 0.2 X10*3/uL (0.1-1.2); Monocytes Percent Auto 2.1 % (2-11); Neutrophils Absolute Auto 7.8 x10*3/uL (2.0-8.3); Neutrophils Percent Auto 89.8 % (45-73); Platelet Count 198 X10*3/uL (160-400); Red Blood Count 4.22 X10*6/uL (4.20-5.50); Red Cell Distribution Width 13.1 % (11.0-16.0); White Blood Count 8.7 X10*3/uL (4.8-10.8)
[2023-01-21 11:02] LABS: INTERNATIONAL NORM RATIO 1.1 (0.9-1.1); Prothrombin Time 13.6 SEC (11.1-13.3)
[2023-01-21 11:05] LABS: Partial Thromboplastin Time 27.4 SEC (26.0-36.4)
[2023-01-21 13:25] LABS: Alanine Aminotransferase 18 U/L (0-31); Albumin Level 4.3 g/dL (3.5-5.0); Alkaline Phosphatase 82 U/L (39-117); Anion Gap 15 (12-20); Aspartate Amino Transferase 15 U/L (5-31); Bilirubin Total 0.5 mg/dL (0.0-1.0); Blood Urea Nitrogen 5 mg/dL (9-16); Calcium 9.2 mg/dL (8.4-10.2); Carbon Dioxide 18 mmol/L (22-29); Chloride 106 mmol/L (96-108); Creatinine Clr Calc Pharmacy 135.5; Estimated Glomerular Filt Rate > 60; Glucose Random 127 mg/dL (60-115); HCG Quantitative < 2 mIU/mL; Lipase 7 U/L (8-78); Potassium 3.3 mmol/L (3.3-5.1); Sodium 136 mmol/L (135-145); Total Protein 7.8 g/dL (6.5-8.0)
[2023-01-21] MEDS: iohexoL 350 MG/ML 75 ML INFUS..BTL 85 ML IV (14:28)
--- NOTE | 2023-01-21 17:45 | MHC.EDTECH ---
Patient give bertha crackers
--- NOTE | 2023-01-21 17:54 | PC.NURSE ---
vomited after eating crackers and gingerale. had been talking on phone w/o complaints since this rn arrival at 3pm./
[2023-01-21] MEDS: Prochlorperazine Edisylate 10 MG/2 ML VIAL IVPUSH (19:47)
== END 2023-01-21 20:45 | disposition home or self-care (01) ==
PROVIDERS: Physician Assistant; Emergency Provider Emergency Medicine; PCP Family Medicine
DX: K52.9 Noninfective gastroenteritis and colitis, unspecified (principal); R10.13 Epigastric pain; K21.9 Gastro-esophageal reflux disease without esophagitis; Z79.899 Other long term (current) drug therapy
CPT/HCPCS: 36415; 74177; 80053; 81001; 81025; 83690; 84702; 85025; 85610; 85730; 87086; 96361; 96374; 96375; 96376; 99284; J1200; J2405; Q9967

== ENCOUNTER 2023-01-22 12:25 | Emergency (ER) | payer OTHER, SELFPAY ==
[2023-01-22 12:30] VITALS: BP 142/92; PULSE 72; O2SAT 100
[2023-01-22 12:38] VITALS: BP 179/92; PULSE 55; RESP 18; TEMP 36.8; O2SAT 100; BMI 38.8
--- NOTE | 2023-01-22 12:55 | ED.ABDPAIN ---
HPI - Abdominal Pain General Chief Complaint: Abdominal Pain Stated Complaint: Low left abd pain, N/V per EMS Time Seen by Provider: 01/22/23 12:49 Source: patient and EMS Mode of arrival: EMS Limitations: no limitations History of Present Illness HPI narrative: 32 yo female with history of asthma, cannabinoid hyperemesis syndrome, anxiety here with complaints of 2 days of lower abdominal pain, vomiting. No diarrhea, urinary symptoms, fevers, chills. Patient does not feel this is secondary to marijuana use. Patient reports she was seen here yesterday and had labs, CT A/P done which showed enteritis. Since being home continued vomiting/abdominal pain Related Data Home Medications Medication Instructions Recorded Confirmed albuterol sulfate 90 mcg/actuation 2 puff inhalation Q4H PRN wheezing 11/20/20 11/20/20 aerosol inhaler famotidine 20 mg tablet 20 mg PO BID 11/20/20 11/20/20 fluoxetine 20 mg capsule 20 mg PO DAILY 11/20/20 11/20/20 hydroxyzine pamoate 25 mg capsule 25 mg PO TID PRN Anxiety 11/20/20 11/20/20 loratadine 10 mg tablet (Allergy 10 mg PO DAILY 11/20/20 11/20/20 Relief (loratadine)) nortriptyline 10 mg capsule 10 mg PO BEDTIME 11/20/20 11/20/20 Previous Rx's Medication Instructions Recorded omeprazole 20 mg capsule,delayed 20 mg PO DAILY Acid reflux #30 caps 11/20/20 release aluminum-mag hydroxide-simethicone 5 ml PO 5XD PRN dyspepsia #30 mL 05/17/21 200 mg-200 mg-20 mg/5 mL oral susp (Maalox Advanced) famotidine 20 mg tablet (Pepcid) 20 mg PO DAILY #14 tabs 05/17/21 ondansetron HCl 4 mg tablet 4 mg PO Q8H PRN nausea and 05/17/21 (Zofran) vomiting #10 tabs metoclopramide HCl 10 mg tablet 10 mg PO Q6H PRN nausea and 06/22/21 (Reglan) vomiting #15 tabs ondansetron HCl 4 mg tablet 4 mg PO Q8H prn nausea 4 days #12 06/24/21 tabs ondansetron 4 mg disintegrating 4 mg PO Q8H PRN nausea and 09/02/22 tablet vomiting #20 tabs ondansetron 4 mg disintegrating 4 mg PO Q6H PRN nausea and 11/02/22 tablet vomiting #14 tabs potassium chloride 20 mEq 20 meq PO DAILY #3 tabs 01/22/23 tablet,extended release promethazine 12.5 mg rectal 12.5 mg HI BID PRN nausea and 01/22/23 suppository vomiting #12 ea Allergies Allergy/AdvReac Type Severity Reaction Status Date / Time bee pollen [BEE STINGS] Allergy Unknown SWELLING Verified 11/01/22 18:27 Review of Systems Review of Systems Yes all other systems are reviewed and are negative Constitutional: Reports no additional constitutional complaints, Denies body ache(s), Denies chills, Denies fever(s), Denies headache(s) and Denies weakness Eyes: Reports no additional eye complaints and Denies change in vision Reports system reviewed and no additional complaints, except as documented, Denies dizziness, Denies headache(s), Denies nasal congestion, Denies nasal discharge and Denies neck pain Cardiovascular: Reports no additional cardiovascular complaints, Denies chest pain, Denies leg edema and Denies dyspnea Respiratory: Reports no additional respiratory complaints, Denies cough and Denies dyspnea Gastrointestinal: Reports no additional gastrointestinal complaints, Reports abdominal pain, Denies diarrhea, Reports nausea and Reports vomiting Genitourinary: Reports no additional female genitourinary complaints and Denies urinary incontinence Musculoskeletal: Reports no additional musculoskeletal complaints, Denies back pain, Denies arthralgias, Denies joint swelling, Denies neck pain, Denies numbness and Denies tingling Skin/Breast: Reports system reviewed and no additional complaints, except as docu and Denies rash Reports system reviewed and no additional complaints, except as documented, Denies dizziness, Denies headache(s), Denies numbness, Denies tingling and Denies weakness [facility] Past Medical History Attestation statement: The following information was validated with the patient. Source: old records reviewed and nursing notes reviewed Medical History Asthma Social History Social History Alcohol intake: current Alcohol intake frequency: holidays/special occasions only Patient Tobacco Use Status: Never used Tobacco Smoked in Last 30 Days: No Use of substances other than those prescribed or required for medical reasons: Yes Substance Use Type: Marijuana Substance Use Frequency: Daily Last Used Substance: Days (ago) Advance Directives: No Advance Directives Information Provided: No Physical Exam ED Vital Signs: Vital Signs - 24 hr 01/22/23 12:38 01/22/23 14:22 Temperature 98.3 F 98.3 F Pulse Rate 55 52 Respiratory Rate 18 16 Blood Pressure 179/92 H 148/99 H Pulse Oximetry 100 100 Oxygen Delivery Method Room Air Room Air BMI result Body Mass Index 38.8 Const General: cooperative, healthy appearing, comfortable and no acute distress Orientation/consciousness: patient oriented x3 Limitations: no limitations HENMT Head: Yes normal to inspection Ears: hearing grossly normal bilaterally Eyes General: appearance normal, both eyes and all related structures Pupils: Equal, round and reactive pupils present Neck Neck: Yes normal visual inspection and Yes full ROM Chest Chest palpation & inspection: normal inspection of the chest Resp Effort & Inspection: normal respiratory effort Auscultation: clear to auscultation bilaterally Cardio Rate: regular rate Rhythm: regular rhythm Peripheral pulses: Peripheral pulses 2+ throughout GI Inspection: Yes normal to inspection Palpation (GI): Soft to palpation, Tenderness to palpation present (GI) (LLQ/RLQ) with no rebound tenderness and no guarding Auscultation: normal bowel sounds General: Yes Bimanual renal exam normal bilaterally and Yes no CVA tenderness Back/Spine/Pelvis Back: no CVA tenderness Thoracic/Lumbar Spine: thoracic and lumbar spine normal to inspection Skin General skin exam: no rashes or lesions noted Neuro General: patient oriented x3 and moves all extremities Cranial nerves: Yes Equal, round and reactive pupils present Cognition (Neuro): normal cognition Course Course Course Narrative: 1530-labs showed mild hypokalemia. Patient will be given oral replacement. Her UA shows moderate blood unchanged from previous. Patient tolerating p.o. with no additional vomiting episodes. Plan for discharge home with antiemetic p.r.n.. Reviewed worrisome signs and symptoms of when to return to the emergency room. Comfortable plan for discharge home Medical Decision Making Medical Decision Making [facility] Narrative: 32 yo female here with complaints of lower abdominal pain, vomiting x 2 days. Seen here yesterday and had abarca including labs/CT which showed normal appendix but concern for enteritis. Patient reports continued symptoms. On exam patient has tenderness to palp to the lower quadrants with no rebound or guarding. Will obtain labs, UA, provide analgesia/antiemetic, IVF Differential Diagnosis Differential Diagnoses: The differential diagnosis associated with the presentation includes gastroenteritis Lab Data MDM Lab Attestation statement: I reviewed the patient's lab results. I reviewed the labs which are unremarkable 01/22/23 12:57 01/22/23 12:58 Labs: Lab Results 01/22/23 01/22/23 01/22/23 Range/Units 12:57 14:23 14:23 WBC 9.8 (4.8-10.8) X10*3/uL RBC 4.52 (4.20-5.50) X10*6/uL Hgb 12.5 (12.0-16.0) g/dl Hct 37.3 (37.0-47.0) % MCV 82.5 (80.0-98.0) fL MCH 27.7 (27.0-33.0) pg MCHC 33.5 (31.0-35.0) g/dl RDW 13.5 (11.0-16.0) % Plt Count 224 (160-400) X10*3/uL MPV 12.1 (9.4-12.3) fL Immature Gran % (Auto) 0.4 (0.0-0.4) % Neut % (Auto) 76.2 H (45-73) % Lymph % (Auto) 16.4 L (20-40) % [place] % (Auto) 6.8 (2-11) % Eos % (Auto) 0.0 (0-4) % Baso % (Auto) 0.2 (0-2) % Lymph # (Auto) 1.6 (1.2-4.9) X10*3/uL [place] # (Auto) 0.7 (0.1-1.2) X10*3/uL Eos # (Auto) 0.0 (0.0-0.4) X10*3/uL Baso # (Auto) 0.0 (0.0-0.2) X10*3/uL Abs Immat Gran (auto) 0.04 H (0.00-0.03) X10*3/uL Absolute Neuts (auto) 7.4 (2.0-8.3) x10*3/uL Absolute Nucleated RBC 0.000 (0.0-0.012) X10*3/uL Nucleated RBC % (auto) 0.0 (0.0-0.2) /100WBC Sodium 138 (135-145) mmol/L Potassium 3.1 L (3.3-5.1) mmol/L Chloride 107 (96-108) mmol/L Carbon Dioxide 19 L (22-29) mmol/L Anion Gap 15 (12-20) BUN 10 (9-16) mg/dL Creatinine 0.76 (0.5-1.4) mg/dL Estim Creat Clear Calc 123.8 Estimated GFR > 60 Random Glucose 109 (60-115) mg/dL Calcium 8.5 D (8.4-10.2) mg/dL Total Bilirubin 0.6 (0.0-1.0) mg/dL Direct Bilirubin 0.2 (0.0-0.5) mg/dL AST 17 (5-31) U/L ALT 19 (0-31) U/L Alkaline Phosphatase 76 (39-117) U/L Total Protein 7.4 (6.5-8.0) g/dL Albumin 4.2 (3.5-5.0) g/dL Lipase 9 (8-78) U/L Urine Color Yellow Urine Appearance Turbid Urine pH 8.0 (5.0-9.0) Ur Specific [place] 1.025 (1.005-1.025) Urine Protein 100 (2+) H (Neg-Trace) mg/dL Urine Glucose (UA) Negative (Negative) mg/dL Urine Ketones 80 (Negative) mg/dL Urine Blood Moderate (2+) H (Negative) Urine Nitrite Negative (Negative) Ur Leukocyte Esterase Negative (Negative) Urine RBC >20 H (0-2) /HPF Urine WBC 0-5 (0-5) /HPF Ur Squamous Epith Cells 6-10 (0-2) /HPF Urine Bacteria Trace (None Seen) Hyaline Casts 0-2 (0-2) /LPF Urine Test (NEGATIVE) 01/22/23 Range/Units 14:23 WBC (4.8-10.8) X10*3/uL RBC (4.20-5.50) X10*6/uL Hgb (12.0-16.0) g/dl Hct (37.0-47.0) % MCV (80.0-98.0) fL MCH (27.0-33.0) pg MCHC (31.0-35.0) g/dl RDW (11.0-16.0) % Plt Count (160-400) X10*3/uL MPV (9.4-12.3) fL Immature Gran % (Auto) (0.0-0.4) % Neut % (Auto) (45-73) % Lymph % (Auto) (20-40) % [place] % (Auto) (2-11) % Eos % (Auto) (0-4) % Baso % (Auto) (0-2) % Lymph # (Auto) (1.2-4.9) X10*3/uL [place] # (Auto) (0.1-1.2) X10*3/uL Eos # (Auto) (0.0-0.4) X10*3/uL Baso # (Auto) (0.0-0.2) X10*3/uL Abs Immat Gran (auto) (0.00-0.03) X10*3/uL Absolute Neuts (auto) (2.0-8.3) x10*3/uL Absolute Nucleated RBC (0.0-0.012) X10*3/uL Nucleated RBC % (auto) (0.0-0.2) /100WBC Sodium (135-145) mmol/L Potassium (3.3-5.1) mmol/L Chloride (96-108) mmol/L Carbon Dioxide (22-29) mmol/L Anion Gap (12-20) BUN (9-16) mg/dL Creatinine (0.5-1.4) mg/dL Estim Creat Clear Calc Estimated GFR Random Glucose (60-115) mg/dL Calcium (8.4-10.2) mg/dL Total Bilirubin (0.0-1.0) mg/dL Direct Bilirubin (0.0-0.5) mg/dL AST (5-31) U/L ALT (0-31) U/L Alkaline Phosphatase (39-117) U/L Total Protein (6.5-8.0) g/dL Albumin (3.5-5.0) g/dL Lipase (8-78) U/L Urine Color Urine Appearance Urine pH (5.0-9.0) Ur Specific [place] (1.005-1.025) Urine Protein (Neg-Trace) mg/dL Urine Glucose (UA) (Negative) mg/dL Urine Ketones (Negative) mg/dL Urine Blood (Negative) Urine Nitrite (Negative) Ur Leukocyte Esterase (Negative) Urine RBC (0-2) /HPF Urine WBC (0-5) /HPF Ur Squamous Epith Cells (0-2) /HPF Urine Bacteria (None Seen) Hyaline Casts (0-2) /LPF Urine Test NEGATIVE (NEGATIVE) External Record Review External record reviewed: Prior outpatient radiology Reviewed ER record from 01/21-CT A/P shows wall thickening mid small bowel loops in central abdomen, few subcentimeter mesenteric lymph nodes. This may represent enteritis. Infectious and inflammatory etiology should be considered. Low concern for infectious etiology as patient has had no risk factors for infectious diarrhea, has no complaints of diarrhea. Had normal BM today prior to arrival. Low concern for inflammatory etiology as this is an acute onset with no reports of night sweats or weight loss or history or family history of IBD. Medications Administered Discontinued Medications Generic Name Dose Route Start Last Admin Trade Name Freq PRN Reason Stop Dose Admin Famotidine 20 mg 01/22/23 13:14 01/22/23 14:11 Famotidine/Pf 20 Mg/2 Ml Vial IVPUSH 01/22/23 13:15 20 mg ONCE ONE Administration Sodium Chloride 1,000 mls @ 999 mls/hr 01/22/23 13:00 01/22/23 15:09 Ns IV 01/22/23 14:00 Infused .Q1H1M NAZANIN Infusion Ketorolac Tromethamine 30 mg 01/22/23 13:14 01/22/23 14:11 Ketorolac Tromethamine 30 Mg/Ml Vial IVPUSH 01/22/23 13:15 30 mg ONCE ONE Administration Lorazepam 1 mg 01/22/23 13:14 01/22/23 14:11 Lorazepam 2 Mg/Ml Vial IVPUSH 01/22/23 13:15 1 mg STAT STA Administration Ondansetron HCl 4 mg 01/22/23 12:53 01/22/23 13:03 Ondansetron Hcl 4 Mg/2 Ml Vial IVPUSH 01/22/23 12:54 4 mg ONCE ONE Administration Discharge Plan Discharge Clinical Impression: Gastroenteritis Patient Disposition: Home, Self-Care Instructions: Gastroenteritis (ED) Additional Instructions: Start with clear liquids and advance her diet as tolerated Use the nausea medicine as prescribed Return for worsening symptoms your potassium was mildly decreased, take potassium the next few days Prescriptions: New promethazine 12.5 mg suppository 12.5 mg HI BID PRN (Reason: nausea and vomiting) Qty: 12 0RF Rx Instructions: do not give 3rd daily dose after evening meal or within 4hr before bed potassium chloride 20 mEq tablet extended release 20 meq PO DAILY Qty: 3 0RF No Action famotidine 20 mg tablet 20 mg PO BID nortriptyline 10 mg capsule 10 mg PO BEDTIME albuterol sulfate 90 mcg/actuation HFA aerosol inhaler 2 puff inhalation Q4H PRN (Reason: wheezing) fluoxetine 20 mg capsule 20 mg PO DAILY loratadine [Allergy Relief (loratadine)] 10 mg tablet 10 mg PO DAILY hydroxyzine pamoate 25 mg capsule 25 mg PO TID PRN (Reason: Anxiety) omeprazole 20 mg capsule,delayed release(DR/EC) 20 mg PO DAILY Qty: 30 0RF metoclopramide HCl [Reglan] 10 mg tablet 10 mg PO Q6H PRN (Reason: nausea and vomiting) Qty: 15 0RF ondansetron 4 mg tablet,disintegrating 4 mg PO Q8H PRN (Reason: nausea and vomiting) Qty: 20 0RF ondansetron HCl [Zofran] 4 mg tablet 4 mg PO Q8H PRN (Reason: nausea and vomiting) Qty: 10 0RF famotidine [Pepcid] 20 mg tablet 20 mg PO DAILY Qty: 14 0RF alum-mag hydroxide-simeth [Maalox Advanced] 200-200-20 mg/5 mL suspension 5 ml PO 5XD PRN (Reason: dyspepsia) Qty: 30 0RF Rx Instructions: administer between meals and at bedtime ondansetron HCl 4 mg tablet 4 mg PO Q8H 4 Days Qty: 12 0RF ondansetron 4 mg tablet,disintegrating 4 mg PO Q6H PRN (Reason: nausea and vomiting) Qty: 14 0RF
[2023-01-22] MEDS: 0.9 % Sodium Chloride 1,000 ML 999 ML IV (13:03)
[2023-01-22] MEDS: ondansetron HCL 4 MG/2 ML VIAL IVPUSH (13:03)
[2023-01-22 13:08] LABS: MANUAL DIFF FLAG NO
[2023-01-22 13:10] LABS: Basophils Percent Auto 0.2 % (0-2); Hematocrit 37.3 % (37.0-47.0); Hemoglobin 12.5 g/dl (12.0-16.0); Imm Gran Abs Auto 0.04 X10*3/uL (0.00-0.03); Imm Gran Pct Auto 0.4 % (0.0-0.4); Lymphocytes Absolute Auto 1.6 X10*3/uL (1.2-4.9); Lymphocytes Percent Auto 16.4 % (20-40); Mean Corpuscular HGB Conc 33.5 g/dl (31.0-35.0); Mean Corpuscular Hemoglobin 27.7 pg (27.0-33.0); Mean Corpuscular Volume 82.5 fL (80.0-98.0); Mean Platelet Volume 12.1 fL (9.4-12.3); Monocytes Absolute Auto 0.7 X10*3/uL (0.1-1.2); Monocytes Percent Auto 6.8 % (2-11); Neutrophils Absolute Auto 7.4 x10*3/uL (2.0-8.3); Neutrophils Percent Auto 76.2 % (45-73); Platelet Count 224 X10*3/uL (160-400); Red Blood Count 4.52 X10*6/uL (4.20-5.50); Red Cell Distribution Width 13.5 % (11.0-16.0); White Blood Count 9.8 X10*3/uL (4.8-10.8)
[2023-01-22] MEDS: Ketorolac Tromethamine 30 MG/ML VIAL IVPUSH (14:11)
[2023-01-22] MEDS: Famotidine/PF 20 MG/2 ML VIAL IVPUSH (14:11)
[2023-01-22] MEDS: LORazepam 2 MG/ML VIAL 1 MG IVPUSH (14:11)
[2023-01-22 14:22] VITALS: BP 148/99; PULSE 52; RESP 16; TEMP 36.8; O2SAT 100
[2023-01-22 14:41] LABS: Appearance Urine Turbid; Color Urine Yellow; Glucose Urine UA Negative (Negative); Leukocyte Esterase Urine Negative (Negative); Nitrite Urine Negative (Negative); Specific Gravity - Urine 1.025 (1.005-1.025); UMIC TRIGGER UACC YES; Urine Blood Moderate (2+) (Negative); Urine Ketones 80 mg/dL (Negative); Urine Protein 100 (2+) mg/dL (Neg-Trace)
[2023-01-22 14:44] LABS: UPreg QC Valid YES; Urine Pregnancy NEGATIVE (NEGATIVE)
[2023-01-22 14:46] LABS: Bacteria Urine Trace (None Seen); Hyaline Casts Urine 0-2 /LPF (0-2); RBC Urine >20 /HPF (0-2); WBC Urine 0-5 /HPF (0-5)
[2023-01-22 14:53] LABS: Alanine Aminotransferase 19 U/L (0-31); Albumin Level 4.2 g/dL (3.5-5.0); Alkaline Phosphatase 76 U/L (39-117); Anion Gap 15 (12-20); Aspartate Amino Transferase 17 U/L (5-31); Bilirubin Direct 0.2 mg/dL (0.0-0.5); Bilirubin Total 0.6 mg/dL (0.0-1.0); Blood Urea Nitrogen 10 mg/dL (9-16); Calcium 8.5 mg/dL (8.4-10.2); Carbon Dioxide 19 mmol/L (22-29); Chloride 107 mmol/L (96-108); Creatinine Clr Calc Pharmacy 123.8; Estimated Glomerular Filt Rate > 60; Glucose Random 109 mg/dL (60-115); Lipase 9 U/L (8-78); Potassium 3.1 mmol/L (3.3-5.1); Sodium 138 mmol/L (135-145); Total Protein 7.4 g/dL (6.5-8.0)
--- NOTE | 2023-01-22 15:45 | PC.NURSE ---
patient given water for PO challenge, pt states she feels okay, patient has not had any vomiting
== END 2023-01-22 16:12 | disposition home or self-care (01) ==
PROVIDERS: Nurse Practitioner Family; Emergency Provider Emergency Medicine; PCP Family Medicine
DX: K52.9 Noninfective gastroenteritis and colitis, unspecified (principal); F41.9 Anxiety disorder, unspecified; E87.6 Hypokalemia; F12.980 Cannabis use, unspecified with anxiety disorder; Z79.899 Other long term (current) drug therapy
CPT/HCPCS: 36415; 80048; 80076; 81001; 81025; 83690; 85025; 96361; 96374; 96375; 99284; J1885; J2060; J2405

== ENCOUNTER 2023-06-27 14:34 | Emergency (ER) | payer OTHER, SELFPAY ==
[2023-06-27 14:49] VITALS: BP 145/88; BP 179/84; PULSE 58; PULSE 69; RESP 17; TEMP 36.8; O2SAT 100; BMI 37.4
--- NOTE | 2023-06-27 14:53 | ED.GENADULT ---
HPI - General Adult General Chief complaint: Nausea/Vomiting/Diarrhea Stated complaint: VOMITING DIZZY Time Seen by Provider: 06/27/23 23:52 Source: patient Mode of arrival: ambulatory Limitations: no limitations History of Present Illness HPI narrative: Patient with history of frequent nausea vomiting with history of cyclic vomiting/cannabis induced vomiting in the past with anxiety comes here for vomiting all day unable to take any p.o. fluids except cup of coffee morbid about 10-15 times received 4 mg of Zofran by EMS still feeling nausea with diffuse abdominal cramps similar to that in the past patient has smoked marijuana yesterday Related Data Home Medications Medication Instructions Recorded Confirmed albuterol sulfate 90 mcg/actuation 2 puff inhalation Q4H PRN wheezing 11/20/20 11/20/20 aerosol inhaler famotidine 20 mg tablet 20 mg PO BID 11/20/20 11/20/20 fluoxetine 20 mg capsule 20 mg PO DAILY 11/20/20 11/20/20 hydroxyzine pamoate 25 mg capsule 25 mg PO TID PRN Anxiety 11/20/20 11/20/20 loratadine 10 mg tablet (Allergy 10 mg PO DAILY 11/20/20 11/20/20 Relief (loratadine)) nortriptyline 10 mg capsule 10 mg PO BEDTIME 11/20/20 11/20/20 Previous Rx's Medication Instructions Recorded omeprazole 20 mg capsule,delayed 20 mg PO DAILY Acid reflux #30 caps 11/20/20 release aluminum-mag hydroxide-simethicone 5 ml PO 5XD PRN dyspepsia #30 mL 05/17/21 200 mg-200 mg-20 mg/5 mL oral susp (Maalox Advanced) famotidine 20 mg tablet (Pepcid) 20 mg PO DAILY #14 tabs 05/17/21 ondansetron HCl 4 mg tablet 4 mg PO Q8H PRN nausea and 05/17/21 (Zofran) vomiting #10 tabs metoclopramide HCl 10 mg tablet 10 mg PO Q6H PRN nausea and 06/22/21 (Reglan) vomiting #15 tabs ondansetron HCl 4 mg tablet 4 mg PO Q8H prn nausea 4 days #12 06/24/21 tabs ondansetron 4 mg disintegrating 4 mg PO Q8H PRN nausea and 09/02/22 tablet vomiting #20 tabs ondansetron 4 mg disintegrating 4 mg PO Q6H PRN nausea and 11/02/22 tablet vomiting #14 tabs potassium chloride 20 mEq 20 meq PO DAILY #3 tabs 01/22/23 tablet,extended release promethazine 12.5 mg rectal 12.5 mg CO BID PRN nausea and 01/22/23 suppository vomiting #12 ea lorazepam 1 mg tablet (Ativan) 1 mg PO BID PRN anxiety #20 tabs 06/28/23 ondansetron 4 mg disintegrating 4 mg PO Q6-8H PRN nausea and 06/28/23 tablet vomiting #20 tabs Allergies Allergy/AdvReac Type Severity Reaction Status Date / Time bee pollen [BEE STINGS] Allergy Unknown SWELLING Verified 11/01/22 18:27 Review of Systems Review of Systems: Yes all other systems are reviewed and are negative PMFSH Past Medical History Onset Date is defined in the Problem List Problems that require an onset date and time if occurred within 24 hrs of arrival to the ED Aortic Dissection and Rupture; Neurologic impairment; Cardiopulmonary Arrest; Endotracheal Intubation; Insertion or Replacement of Mechanical Circulatory Assist Device Medical History Asthma Social History Social History Alcohol intake: current Alcohol intake frequency: holidays/special occasions only Patient Tobacco Use Status: Never used Tobacco Smoked in Last 30 Days: No Use of substances other than those prescribed or required for medical reasons: Yes Substance Use Type: Marijuana Advance Directives: No Advance Directives Information Provided: No Patient : No (Had tubes removed) Physical Exam ED Vital Signs: Vital Signs - 24 hr 06/27/23 14:49 06/28/23 00:15 Temperature 98.2 F 98.7 F Pulse Rate 69 63 Respiratory Rate 17 18 Blood Pressure 179/84 H 162/89 H Pulse Oximetry 100 98 Oxygen Delivery Method Room Air Room Air BMI result Body Mass Index 37.4 Appearance: Alert. Oriented X3. Anxious ENT: Pharynx normal. Oral Mucosa moist Neck: Normal inspection. Neck supple. CVS: Normal heart rate and rhythm. Pulses normal. Respiratory: No respiratory distress. Equal air entry bilateral, Abdomen: Soft and nontender. Bowel sounds are present, no mass palpable, no CVA tenderness Skin: Skin warm and dry. Normal skin color. Normal skin turgor. Extremities: No lower extremity edema. Neuro: Oriented X 3. Course Course Course Narrative: RME performed by Isabelle Martin PA-C. Patient is a 32 year old assigned female at presenting to the emergency department with nausea, vomiting, and dizziness. Detailed physical exam and review of systems are deferred to the composition weatherboard installer. Labs ordered. Patient placed back in the waiting room pending room availability and results. Medications Administered Discontinued Medications Generic Name Dose Route Start Last Admin Trade Name Freq PRN Reason Stop Dose Admin Sodium Chloride 1,000 mls @ 999 mls/hr 06/28/23 00:15 06/28/23 00:39 Ns IV 06/28/23 01: 999 mls/hr .Q1H1M ONE Administration Lorazepam 2 mg 06/28/23 00:15 06/28/23 00:39 Lorazepam 2 Mg/Ml Vial IVPUSH 06/28/23 00:16 2 mg ONCE ONE Administration Prochlorperazine Edisylate 10 mg 06/28/23 00:15 06/28/23 00:39 Prochlorperazine Edisylate 10 Mg/2 Ml Vial IVPUSH 06/28/23 00:16 10 mg ONCE ONE Administration Medical Decision Making Medical Decision Making [facility] Narrative: Patient with frequent cyclic vomiting syndrome possible cannabis induced feeling much better after IV fluids and IV magnesium, no active vomiting in the ER labs are stable will discharge patient home Differential Diagnosis Differential Diagnoses: The differential diagnosis associated with the presentation includes Cyclic vomiting syndrome/cannabis induced vomiting/anxiety Lab Data [facility] Lab Attestation statement: I reviewed the patient's lab results. 06/27/23 15:28 06/27/23 15:28 Labs: Lab Results 06/27/23 06/27/23 Range/Units 15:28 16:42 WBC 11.1 H (4.8-10.8) X10*3/uL RBC 4.44 (4.20-5.50) X10*6/uL Hgb 11.1 L (12.0-16.0) g/dl Hct 34.4 L (37.0-47.0) % MCV 77.5 L (80.0-98.0) fL MCH 25.0 L (27.0-33.0) pg MCHC 32.3 (31.0-35.0) g/dl RDW 13.6 (11.0-16.0) % Plt Count 245 (160-400) X10*3/uL MPV 11.8 (9.4-12.3) fL Immature Gran % (Auto) 0.4 (0.0-0.4) % Neut % (Auto) 90.7 H (45-73) % Lymph % (Auto) 7.3 L (20-40) % [place] % (Auto) 1.4 L (2-11) % Eos % (Auto) 0.0 (0-4) % Baso % (Auto) 0.2 (0-2) % Lymph # (Auto) 0.8 L (1.2-4.9) X10*3/uL [place] # (Auto) 0.2 (0.1-1.2) X10*3/uL Eos # (Auto) 0.0 (0.0-0.4) X10*3/uL Baso # (Auto) 0.0 (0.0-0.2) X10*3/uL Abs Immat Gran (auto) 0.04 H (0.00-0.03) X10*3/uL Absolute Neuts (auto) 10.1 H (2.0-8.3) x10*3/uL Absolute Nucleated RBC 0.000 (0.0-0.012) X10*3/uL Nucleated RBC % (auto) 0.0 (0.0-0.2) /100WBC Smear Tech's Comments VERIFIED Sodium 135 (135-145) mmol/L Potassium 3.5 (3.3-5.1) mmol/L Chloride 103 (96-108) mmol/L Carbon Dioxide 19 L (22-29) mmol/L Anion Gap 17 (12-20) BUN 8 L (9-16) mg/dL Creatinine 0.71 (0.5-1.4) mg/dL Estim Creat Clear Calc 129.9 Estimated GFR > 60 Random Glucose 127 H (60-115) mg/dL Calcium 9.8 D (8.4-10.2) mg/dL Magnesium 1.5 L (1.6-2.6) mg/dL Total Bilirubin 0.5 (0.0-1.0) mg/dL AST 15 (5-31) U/L ALT 16 (0-31) U/L Alkaline Phosphatase 91 (39-117) U/L Total Protein 8.3 H (6.5-8.0) g/dL Albumin 4.6 (3.5-5.0) g/dL Beta HCG, Quant < 2 mIU/mL Urine Color Yellow Urine Appearance Clear Urine pH >= 9.0 (5.0-9.0) Ur Specific [place] 1.020 (1.005-1.025) Urine Protein 100 (2+) H (Neg-Trace) mg/dL Urine Glucose (UA) Negative (Negative) mg/dL Urine Ketones 80 (Negative) mg/dL Urine Blood Moderate (2+) H (Negative) Urine Nitrite Negative (Negative) Ur Leukocyte Esterase Negative (Negative) Urine RBC >20 H (0-2) /HPF Urine WBC 0-5 (0-5) /HPF Ur Squamous Epith Cells 3-5 (0-2) /HPF Urine Bacteria None Seen (None Seen) Hyaline Casts 0-2 (0-2) /LPF Urine Opiates Screen Not Detected (Not Detect) Urine Fentanyl Screen Not Detected (Not Detect) Ur Barbiturates Screen Not Detected (Not Detect) Ur Phencyclidine Scrn Not Detected (Not Detect) Ur Amphetamines Screen Not Detected (Not Detect) U Benzodiazepines Scrn Not Detected (Not Detect) Urine Cocaine Screen Not Detected (Not Detect) U Marijuana (THC) Screen POSITIVE H (Not Detect) Influenza Type A (PCR) NEGATIVE (Negative) Influenza Type B (PCR) NEGATIVE (Negative) RSV RNA Qual (PCR) NEGATIVE (Negative) SARS-CoV-2 RNA (RT-PCR) NEGATIVE (Negative) Discharge Plan Discharge Clinical Impression: Cyclic vomiting syndrome Patient Disposition: Home, Self-Care Instructions: Cyclic Vomiting Syndrome (ED) Additional Instructions: Drink plenty of fluids Take your anxiety and nausea medication as prescribed Stop smoking cannabis Prescriptions: New lorazepam [Ativan] 1 mg tablet 1 mg PO BID PRN (Reason: anxiety) Qty: 20 0RF ondansetron 4 mg tablet,disintegrating 4 mg PO Q6-8H PRN (Reason: nausea and vomiting) Qty: 20 0RF No Action famotidine 20 mg tablet 20 mg PO BID nortriptyline 10 mg capsule 10 mg PO BEDTIME albuterol sulfate 90 mcg/actuation HFA aerosol inhaler 2 puff inhalation Q4H PRN (Reason: wheezing) fluoxetine 20 mg capsule 20 mg PO DAILY loratadine [Allergy Relief (loratadine)] 10 mg tablet 10 mg PO DAILY hydroxyzine pamoate 25 mg capsule 25 mg PO TID PRN (Reason: Anxiety) omeprazole 20 mg capsule,delayed release(DR/EC) 20 mg PO DAILY Qty: 30 0RF metoclopramide HCl [Reglan] 10 mg tablet 10 mg PO Q6H PRN (Reason: nausea and vomiting) Qty: 15 0RF ondansetron 4 mg tablet,disintegrating 4 mg PO Q8H PRN (Reason: nausea and vomiting) Qty: 20 0RF ondansetron HCl [Zofran] 4 mg tablet 4 mg PO Q8H PRN (Reason: nausea and vomiting) Qty: 10 0RF famotidine [Pepcid] 20 mg tablet 20 mg PO DAILY Qty: 14 0RF alum-mag hydroxide-simeth [Maalox Advanced] 200-200-20 mg/5 mL suspension 5 ml PO 5XD PRN (Reason: dyspepsia) Qty: 30 0RF Rx Instructions: administer between meals and at bedtime ondansetron HCl 4 mg tablet 4 mg PO Q8H 4 Days Qty: 12 0RF ondansetron 4 mg tablet,disintegrating 4 mg PO Q6H PRN (Reason: nausea and vomiting) Qty: 14 0RF promethazine 12.5 mg suppository 12.5 mg CO BID PRN (Reason: nausea and vomiting) Qty: 12 0RF Rx Instructions: do not give 3rd daily dose after evening meal or within 4hr before bed potassium chloride 20 mEq tablet extended release 20 meq PO DAILY Qty: 3 0RF
[2023-06-27 15:55] LABS: Alanine Aminotransferase 16 U/L (0-31); Albumin Level 4.6 g/dL (3.5-5.0); Alkaline Phosphatase 91 U/L (39-117); Anion Gap 17 (12-20); Aspartate Amino Transferase 15 U/L (5-31); Bilirubin Total 0.5 mg/dL (0.0-1.0); Blood Urea Nitrogen 8 mg/dL (9-16); Calcium 9.8 mg/dL (8.4-10.2); Carbon Dioxide 19 mmol/L (22-29); Chloride 103 mmol/L (96-108); Creatinine Clr Calc Pharmacy 129.9; Estimated Glomerular Filt Rate > 60; Glucose Random 127 mg/dL (60-115); Magnesium 1.5 mg/dL (1.6-2.6); Potassium 3.5 mmol/L (3.3-5.1); Sodium 135 mmol/L (135-145); Total Protein 8.3 g/dL (6.5-8.0)
[2023-06-27 16:51] LABS: Influenza A PCR NEGATIVE (Negative); Influenza B PCR NEGATIVE (Negative); Resp Syncy Virus RNA Qual PCR NEGATIVE (Negative); SARS COV2 PCR INHOUSE NEGATIVE (Negative)
[2023-06-27 17:04] LABS: Appearance Urine Clear; Color Urine Yellow; Glucose Urine UA Negative (Negative); Leukocyte Esterase Urine Negative (Negative); Nitrite Urine Negative (Negative); PH >= 9.0 (5.0-9.0); UMIC TRIGGER UACC YES; Urine Blood Moderate (2+) (Negative); Urine Ketones 80 mg/dL (Negative); Urine Protein 100 (2+) mg/dL (Neg-Trace)
[2023-06-27 17:08] LABS: Amphetamine Screen Urine Not Detected (Not Detect); Barbiturates, Urine Not Detected (Not Detect); Benzodiazepines Screen Urine Not Detected (Not Detect); Cannabinoid Screen Urine POSITIVE (Not Detect); Cocaine Screen Urine Not Detected (Not Detect); Fentanyl, urine Not Detected (Not Detect); Opiate Screen Urine Not Detected (Not Detect); Phencyclidine Screen Urine Not Detected (Not Detect)
[2023-06-27 17:13] LABS: Bacteria Urine None Seen (None Seen); Hyaline Casts Urine 0-2 /LPF (0-2); RBC Urine >20 /HPF (0-2); WBC Urine 0-5 /HPF (0-5)
--- NOTE | 2023-06-28 00:10 | PC.NURSE ---
at bedside for primary eval.
[2023-06-28 00:15] VITALS: BP 162/89; PULSE 63; RESP 18; TEMP 37.1; O2SAT 98
[2023-06-28] MEDS: LORazepam 2 MG/ML VIAL IVPUSH (00:39)
[2023-06-28] MEDS: 0.9 % Sodium Chloride 1,000 ML 999 ML IV ×2 (00:39→02:04)
[2023-06-28] MEDS: Prochlorperazine Edisylate 10 MG/2 ML VIAL IVPUSH (00:39)
--- NOTE | 2023-06-28 00:45 | PC.NURSE ---
Medicated per MAR, aware of plan of care, resting in bed at this time.
[2023-06-28 02:00] VITALS: BP 116/74; PULSE 60; RESP 16; TEMP 37.1; O2SAT 98
[2023-06-28] MEDS: Magnesium Sulfate/H2O 2 GM/50 ML PIGGYBACK IV (02:03)
--- NOTE | 2023-06-28 02:17 | MHC.EDTECH ---
Hourly rounds and vitals completed, patient is resting comfortably and call coyne within reach
[2023-06-28 03:31] VITALS: BP 118/72; PULSE 61; RESP 16; TEMP 37; O2SAT 98
--- NOTE | 2023-06-28 03:33 | MHC.EDTECH ---
Hourly rounds and vitals completed,call coyne in reach
[2023-06-28 05:01] VITALS: BP 144/66; PULSE 54; RESP 16; O2SAT 100
== END 2023-06-28 05:02 | disposition home or self-care (01) ==
PROVIDERS: Physician Assistant Medical; Emergency Provider Internal Medicine
DX: R11.15 Cyclical vomiting syndrome unrelated to migraine (principal); F12.988 Cannabis use, unspecified with other cannabis-induced disorder; R11.2 Nausea with vomiting, unspecified; R42 Dizziness and giddiness; Z20.822 Contact with and (suspected) exposure to COVID-19; Z20.828 Contact with and (suspected) exposure to other viral communicable diseases; Z79.899 Other long term (current) drug therapy
CPT/HCPCS: 0241U; 36415; 80053; 80307; 81001; 81003; 83735; 84702; 85025; 96361; 96374; 96375; 99284; J0737; J2060; J3475

== ENCOUNTER 2023-10-10 14:27 | Emergency (ER) | payer OTHER, SELFPAY ==
[2023-10-10 14:32] VITALS: BP 160/90; PULSE 64; O2SAT 99
[2023-10-10 14:44] VITALS: BP 138/96; PULSE 58; RESP 18; TEMP 37.1; O2SAT 100; BMI 41.2
--- NOTE | 2023-10-10 14:44 | ED.ABDPAIN ---
HPI - Abdominal Pain General Chief Complaint: Abdominal Pain Stated Complaint: NAUSEA,VOMITING A FEW HOURS,SICK X1 WK PER EMS Time Seen by Provider: 10/10/23 19:37 Source: patient Mode of arrival: ambulatory Limitations: no limitations History of Present Illness HPI narrative: Patient is a 33-year-old female with history of cannabinoid hyperemesis syndrome, anxiety, asthma, anemia presenting to the emergency department with complaint of 7-10 days of epigastric pain and nausea and vomiting today. She denies diarrhea or constipation. Denies fevers. States emesis has been nonbloody, nonbilious. Has not taken any [id number] medications at home for her symptoms today. MD elicited complaint: abdominal pain Pertinent past history: other Onset (ago): week(s) Pain Consistency: colicky Location: epigastric Severity: moderate Quality: burning Radiation: none Migration to: no migration Exacerbating factors: eating Relieving factors: nothing Context: history of similar episodes Associated symptoms: nausea and vomiting Related Data Home Medications ?Medication ?Instructions ?Recorded ?Confirmed albuterol sulfate 90 mcg/actuation 2 puff inhalation Q4H PRN wheezing 11/20/20 11/20/20 aerosol inhaler famotidine 20 mg tablet 20 mg PO BID 11/20/20 11/20/20 fluoxetine 20 mg capsule 20 mg PO DAILY 11/20/20 11/20/20 hydroxyzine pamoate 25 mg capsule 25 mg PO TID PRN Anxiety 11/20/20 11/20/20 loratadine 10 mg tablet (Allergy 10 mg PO DAILY 11/20/20 11/20/20 Relief (loratadine)) nortriptyline 10 mg capsule 10 mg PO BEDTIME 11/20/20 11/20/20 Previous Rx's ?Medication ?Instructions ?Recorded omeprazole 20 mg capsule,delayed 20 mg PO DAILY Acid reflux #30 caps 11/20/20 release aluminum-mag hydroxide-simethicone 5 ml PO 5XD PRN dyspepsia #30 mL 05/17/21 200 mg-200 mg-20 mg/5 mL oral susp (Maalox Advanced) famotidine 20 mg tablet (Pepcid) 20 mg PO DAILY #14 tabs 05/17/21 ondansetron HCl 4 mg tablet 4 mg PO Q8H PRN nausea and 05/17/21 (Zofran) vomiting #10 tabs metoclopramide HCl 10 mg tablet 10 mg PO Q6H PRN nausea and 06/22/21 (Reglan) vomiting #15 tabs ondansetron HCl 4 mg tablet 4 mg PO Q8H prn nausea 4 days #12 06/24/21 tabs ondansetron 4 mg disintegrating 4 mg PO Q8H PRN nausea and 09/02/22 tablet vomiting #20 tabs ondansetron 4 mg disintegrating 4 mg PO Q6H PRN nausea and 11/02/22 tablet vomiting #14 tabs potassium chloride 20 mEq 20 meq PO DAILY #3 tabs 01/22/23 tablet,extended release promethazine 12.5 mg rectal 12.5 mg [place] BID PRN nausea and 01/22/23 suppository vomiting #12 ea lorazepam 1 mg tablet (Ativan) 1 mg PO BID PRN anxiety #20 tabs 06/28/23 ondansetron 4 mg disintegrating 4 mg PO Q6-8H PRN nausea and 06/28/23 tablet vomiting #20 tabs ondansetron 4 mg disintegrating 4 mg PO Q8H PRN nausea and 10/10/23 tablet vomiting #9 tabs Allergies Allergy/AdvReac Type Severity Reaction Status Date / Time bee pollen [BEE STINGS] Allergy Unknown SWELLING Verified 10/10/23 14:46 Review of Systems Review of Systems As per HPI. Yes all other systems are reviewed and are negative Constitutional: Reports as per HPI [facility] Past Medical History Medical History Asthma Social History Social History Alcohol intake: current Alcohol intake frequency: holidays/special occasions only Patient Tobacco Use Status: Never used Tobacco Substance Use Type: Marijuana Advance Directives: No Advance Directives Information Provided: No Do you have a plan to hurt others: No Plan Physical Exam ED Vital Signs: Vital Signs - 24 hr 10/10/23 14:44 10/10/23 19:47 10/11/23 00:44 Temperature 98.8 F 98.2 F 98.7 F Pulse Rate 58 55 60 Respiratory Rate 18 18 16 Blood Pressure 138/96 H 157/86 H 160/76 H Pulse Oximetry 100 100 100 Oxygen Delivery Method Room Air Room Air Room Air BMI result Body Mass Index 41.2 Vital signs have been reviewed and appear to be correct. Blood pressure elevated. Heart rate normal. Respiratory rate normal. Temperature normal. Oxygen saturation normal. Const General: cooperative, healthy appearing and no acute distress Orientation/consciousness: oriented to person, oriented to place, oriented to time and patient oriented x3 Limitations: no limitations HENMT Head: Yes normocephalic and Yes atraumatic Ears: external ears normal General nose exam: Normal external nose present Face and sinus: Yes face symmetric Mouth: oropharynx normal and moist mucous membranes Throat: Yes uvula midline Eyes Pupils: Equal, round and reactive pupils present Neck Neck: Yes normal visual inspection and Yes supple Resp Effort & Inspection: normal respiratory effort and able to speak in complete sentences Auscultation: clear to auscultation bilaterally Cardio Rate: regular rate Rhythm: regular rhythm Heart sounds: S1 normal heart sound present and S2 normal heart sound present GI Palpation (GI): Soft to palpation and nontender Auscultation: normoactive bowel sounds General: Yes no CVA tenderness Back/Spine/Pelvis Back: no CVA tenderness Skin General skin exam: elasticity normal and turgor normal Neuro General: oriented to person, oriented to place, oriented to time, patient oriented x3, moves all extremities, no focal motor deficits and CN's II-XI intact bilaterally Cranial nerves: Yes Equal, round and reactive pupils present Cognition (Neuro): normal cognition Extrem General: Yes full ROM, Yes no pedal edema and Yes no calf tenderness Psych Mental Status: mental status grossly normal Affect: normal affect Thought process: Normal thought process present Course Course Course Narrative: This is a rapid medical exam. Defer additional HPI, ROS and PE to primary provider. 33-year-old female with a history asthma, anxiety, cyclic vomiting syndrome presents the ER with generalized malaise, vomiting. Will obtain labs, UA, viral testing Vitals stable Reevaluation(s) Reevaluation #1: Patient complains of ongoing nausea despite medications given. States the medications she was given at previous visit worked well for her nausea. Review of EMR shows that at most recent visit on 06/27/2023 patient received prochlorperazin and lorazepam. Will order this and 1 L of additional fluids. Time: 22:32 Reevaluation #2: Patient reports improvement of nausea after prochlorperazine and lorazepam. Able to tolerate small sips fluid. Feel patient is stable for discharge home at this time. Will refer to gastroenterology for further evaluation of symptoms. Return precautions discussed at bedside. Patient verbalized understanding of and agreement with plan. Time: 23:53 Medical Decision Making Medical Decision Making [facility] Narrative: Patient is a 33-year-old female with history of cannabinoid hyperemesis syndrome, anxiety, asthma, anemia presenting to the emergency department with complaint of 7-10 days of epigastric pain and nausea and vomiting today. On exam patient is awake, A+Ox3, VS WNL, afebrile, normal neurological exam without focal deficits, physical exam findings as above. Given reported symptoms and physical exam findings, initial differential includes gastritis, GERD, PUD, viral illness, covid, flu, cannabinoid hyperemesis. Labs notable for slight leukocytosis, chronic anemia, no significant electrolyte abnormalities, normal LFTs. Viral serology negative. Urinalysis notable for 2+ blood, 2+ protein, do not suspect UTI at this time. Please refer to course for remaining clinical decision-making. Differential Diagnosis Differential Diagnoses: The differential diagnosis associated with the presentation includes As Per [facility]. Admission/Observation Consideration of admission/observation: Escalation of care including admission/observation considered Patient would have been admitted to the hospital had their work up had any findings where hospital admission was appropriate and their clinical presentation warranted hospital admission. Lab Data [facility] Lab Attestation statement: I reviewed the patient's lab results. As per [facility] 10/10/23 15:50 10/10/23 15:50 Labs: Lab Results 10/10/23 10/10/23 Range/Units 15:50 20:22 WBC 11.0 H (4.8-10.8) X10*3/uL RBC 4.35 (4.20-5.50) X10*6/uL Hgb 10.5 L (12.0-16.0) g/dl Hct 32.9 L (37.0-47.0) % MCV 75.6 L (80.0-98.0) fL MCH 24.1 L (27.0-33.0) pg MCHC 31.9 (31.0-35.0) g/dl RDW 14.4 (11.0-16.0) % Plt Count 218 (160-400) X10*3/uL MPV 11.4 (9.4-12.3) fL Immature Gran % (Auto) 0.3 (0.0-0.4) % Neut % (Auto) 86.8 H (45-73) % Lymph % (Auto) 8.9 L (20-40) % Blanco % (Auto) 3.5 (2-11) % Eos % (Auto) 0.2 (0-4) % Baso % (Auto) 0.3 (0-2) % Lymph # (Auto) 1.0 L (1.2-4.9) X10*3/uL [place] # (Auto) 0.4 (0.1-1.2) X10*3/uL Eos # (Auto) 0.0 (0.0-0.4) X10*3/uL Baso # (Auto) 0.0 (0.0-0.2) X10*3/uL Abs Immat Gran (auto) 0.03 (0.00-0.03) X10*3/uL Absolute Neuts (auto) 9.5 H (2.0-8.3) x10*3/uL Absolute Nucleated RBC 0.000 (0.0-0.012) X10*3/uL Nucleated RBC % (auto) 0.0 (0.0-0.2) /100WBC Sodium 139 (135-145) mmol/L Potassium 3.3 (3.3-5.1) mmol/L Chloride 107 (96-108) mmol/L Carbon Dioxide 21 L (22-29) mmol/L Anion Gap 14 (12-20) BUN 6 L (9-16) mg/dL Creatinine 0.70 (0.5-1.4) mg/dL Estim Creat Clear Calc 137.8 Estimated GFR > 60 Random Glucose 120 H (60-115) mg/dL Lactic Acid 1.9 (0.5-2.0) mmol/L Calcium 9.5 (8.4-10.2) mg/dL Total Bilirubin 0.5 (0.0-1.0) mg/dL Direct Bilirubin 0.2 (0.0-0.5) mg/dL AST 15 (5-31) U/L ALT 14 (0-31) U/L Alkaline Phosphatase 96 (39-117) U/L Total Protein 8.0 (6.5-8.0) g/dL Albumin 4.5 (3.5-5.0) g/dL Lipase 7 L (8-78) U/L Urine Color Yellow Urine Appearance Clear Urine pH 8.5 (5.0-9.0) Ur Specific [place] 1.020 (1.005-1.025) Urine Protein 100 (2+) H (Neg-Trace) mg/dL Urine Glucose (UA) Negative (Negative) mg/dL Urine Ketones 80 (Negative) mg/dL Urine Blood Moderate (2+) H (Negative) Urine Nitrite Negative (Negative) Ur Leukocyte Esterase Negative (Negative) Urine RBC >20 H (0-2) /HPF Urine WBC 0-5 (0-5) /HPF Ur Squamous Epith Cells 3-5 (0-2) /HPF Urine Bacteria None Seen (None Seen) Hyaline Casts 0-2 (0-2) /LPF Influenza Type A (PCR) NEGATIVE (Negative) Influenza Type B (PCR) NEGATIVE (Negative) RSV RNA Qual (PCR) NEGATIVE (Negative) SARS-CoV-2 RNA (RT-PCR) NEGATIVE (Negative) External Record Review External record reviewed: Inpatient record, Office record and Outpatient record Prescription Management I considered prescription management with: Other Medications Administered Discontinued Medications Generic Name Dose Route Start Last Admin Trade Name Freq PRN Reason Stop Dose Admin Al Hydroxide/Mg Hydroxide 15 ml 10/10/23 19:41 10/10/23 21:36 Magnesium Hydrox/Alum Hydrox 30 Ml Oral.Susp PO 10/10/23 19:42 15 ml ONCE ONE Administration Sodium Chloride 1,000 mls @ 999 mls/hr 10/10/23 19:45 10/10/23 22:50 Ns IV 10/10/23 20:45 Infused .Q1H1M NAZANIN Infusion Sodium Chloride 1,000 mls @ 999 mls/hr 10/10/23 22:45 10/11/23 00:07 Ns IV 10/10/23 23:45 Infused .Q1H1M NAZANIN Infusion Lidocaine HCl 5 ml 10/10/23 19:41 10/10/23 21:35 Lidocaine Hcl Viscous 2 % 15 Ml Solution MUCOUS MEM 10/10/23 19:42 5 ml ONCE ONE Administration Lorazepam 2 mg 10/10/23 22:31 10/10/23 22:51 Lorazepam 2 Mg/Ml Vial IVPUSH 10/10/23 22:32 2 mg ONCE ONE Administration Ondansetron HCl 4 mg 10/10/23 19:41 10/10/23 21:11 Ondansetron Hcl 4 Mg/2 Ml Vial IVPUSH 10/10/23 19:42 4 mg ONCE ONE Administration Prochlorperazine Edisylate 10 mg 10/10/23 22:31 10/10/23 22:51 Prochlorperazine Edisylate 10 Mg/2 Ml Vial IVPUSH 10/10/23 22:32 10 mg ONCE ONE Administration Discharge Plan Discharge Clinical Impression: Epigastric abdominal pain, Nausea & vomiting Patient Disposition: Home, Self-Care Instructions: Gastroesophageal Reflux Disease (DC), Acute Nausea and Vomiting (ED), Heat Pack Application (ED), Epigastric Pain (ED), Warm Compress or Soak (ED) Additional Instructions: You were evaluated in the emergency department today for epigastric pain, nausea, and vomiting which is most likely due to irritation of the lining of your stomach. Your symptoms improved with medication in the ED. You can use Mylanta, which is available over the counter, to help manage your symptoms. Are also being prescribed ondansetron which you can take every 8 hours as needed for nausea and vomiting. Avoid spicy or acidic foods. Please follow up with your primary care physician within two days. You are being referred to the curriculum consultant for further evaluation of your symptoms. Return to the emergency department if you experience shortness of breath, worsening or uncontrolled abdominal pain, chest pain, light headedness, faiting, persistent nausea and vomiting, bloody vomit or stools, black, tarry stools, or any other concerning symptoms. Prescriptions: New ondansetron 4 mg tablet,disintegrating 4 mg PO Q8H PRN (Reason: nausea and vomiting) Qty: 9 0RF No Action famotidine 20 mg tablet 20 mg PO BID nortriptyline 10 mg capsule 10 mg PO BEDTIME albuterol sulfate 90 mcg/actuation HFA aerosol inhaler 2 puff inhalation Q4H PRN (Reason: wheezing) fluoxetine 20 mg capsule 20 mg PO DAILY loratadine [Allergy Relief (loratadine)] 10 mg tablet 10 mg PO DAILY hydroxyzine pamoate 25 mg capsule 25 mg PO TID PRN (Reason: Anxiety) omeprazole 20 mg capsule,delayed release(DR/EC) 20 mg PO DAILY Qty: 30 0RF metoclopramide HCl [Reglan] 10 mg tablet 10 mg PO Q6H PRN (Reason: nausea and vomiting) Qty: 15 0RF ondansetron 4 mg tablet,disintegrating 4 mg PO Q8H PRN (Reason: nausea and vomiting) Qty: 20 0RF ondansetron HCl [Zofran] 4 mg tablet 4 mg PO Q8H PRN (Reason: nausea and vomiting) Qty: 10 0RF famotidine [Pepcid] 20 mg tablet 20 mg PO DAILY Qty: 14 0RF alum-mag hydroxide-simeth [Maalox Advanced] 200-200-20 mg/5 mL suspension 5 ml PO 5XD PRN (Reason: dyspepsia) Qty: 30 0RF Rx Instructions: administer between meals and at bedtime ondansetron HCl 4 mg tablet 4 mg PO Q8H 4 Days Qty: 12 0RF ondansetron 4 mg tablet,disintegrating 4 mg PO Q6H PRN (Reason: nausea and vomiting) Qty: 14 0RF promethazine 12.5 mg suppository 12.5 mg [place] BID PRN (Reason: nausea and vomiting) Qty: 12 0RF Rx Instructions: do not give 3rd daily dose after evening meal or within 4hr before bed potassium chloride 20 mEq tablet extended release 20 meq PO DAILY Qty: 3 0RF lorazepam [Ativan] 1 mg tablet 1 mg PO BID PRN (Reason: anxiety) Qty: 20 0RF ondansetron 4 mg tablet,disintegrating 4 mg PO Q6-8H PRN (Reason: nausea and vomiting) Qty: 20 0RF Referrals: [facility] [place] Gastroenterology Services [Provider Group] Interventions: ED Discharge Assessment Last Done: 10/11/23 00:44 Discharge Date/Time: 10/11/23 00:55 Print Language: Thai
[2023-10-10 15:57] LABS: MANUAL DIFF FLAG NO
[2023-10-10 15:59] LABS: Basophils Percent Auto 0.3 % (0-2); Eosinophils Percent Auto 0.2 % (0-4); Hematocrit 32.9 % (37.0-47.0); Hemoglobin 10.5 g/dl (12.0-16.0); Imm Gran Abs Auto 0.03 X10*3/uL (0.00-0.03); Imm Gran Pct Auto 0.3 % (0.0-0.4); Lymphocytes Percent Auto 8.9 % (20-40); Mean Corpuscular HGB Conc 31.9 g/dl (31.0-35.0); Mean Corpuscular Hemoglobin 24.1 pg (27.0-33.0); Mean Corpuscular Volume 75.6 fL (80.0-98.0); Mean Platelet Volume 11.4 fL (9.4-12.3); Monocytes Absolute Auto 0.4 X10*3/uL (0.1-1.2); Monocytes Percent Auto 3.5 % (2-11); Neutrophils Absolute Auto 9.5 x10*3/uL (2.0-8.3); Neutrophils Percent Auto 86.8 % (45-73); Platelet Count 218 X10*3/uL (160-400); Red Blood Count 4.35 X10*6/uL (4.20-5.50); Red Cell Distribution Width 14.4 % (11.0-16.0)
[2023-10-10 16:21] LABS: Lactic Acid 1.9 mmol/L (0.5-2.0)
[2023-10-10 16:27] LABS: Alanine Aminotransferase 14 U/L (0-31); Albumin Level 4.5 g/dL (3.5-5.0); Alkaline Phosphatase 96 U/L (39-117); Anion Gap 14 (12-20); Aspartate Amino Transferase 15 U/L (5-31); Bilirubin Direct 0.2 mg/dL (0.0-0.5); Bilirubin Total 0.5 mg/dL (0.0-1.0); Blood Urea Nitrogen 6 mg/dL (9-16); Calcium 9.5 mg/dL (8.4-10.2); Carbon Dioxide 21 mmol/L (22-29); Chloride 107 mmol/L (96-108); Creatinine Clr Calc Pharmacy 137.8; Estimated Glomerular Filt Rate > 60; Glucose Random 120 mg/dL (60-115); Lipase 7 U/L (8-78); Potassium 3.3 mmol/L (3.3-5.1); Sodium 139 mmol/L (135-145)
[2023-10-10 16:48] LABS: Influenza A PCR NEGATIVE (Negative); Influenza B PCR NEGATIVE (Negative); Resp Syncy Virus RNA Qual PCR NEGATIVE (Negative); SARS COV2 PCR INHOUSE NEGATIVE (Negative)
[2023-10-10 19:47] VITALS: BP 157/86; PULSE 55; RESP 18; TEMP 36.8; O2SAT 100
[2023-10-10 20:29] LABS: Appearance Urine Clear; Color Urine Yellow; Glucose Urine UA Negative (Negative); Leukocyte Esterase Urine Negative (Negative); Nitrite Urine Negative (Negative); PH 8.5 (5.0-9.0); UMIC TRIGGER UACC YES; Urine Blood Moderate (2+) (Negative); Urine Ketones 80 mg/dL (Negative); Urine Protein 100 (2+) mg/dL (Neg-Trace)
[2023-10-10 20:31] LABS: Bacteria Urine None Seen (None Seen); Hyaline Casts Urine 0-2 /LPF (0-2); RBC Urine >20 /HPF (0-2); WBC Urine 0-5 /HPF (0-5)
[2023-10-10] MEDS: ondansetron HCL 4 MG/2 ML VIAL IVPUSH (21:11)
[2023-10-10] MEDS: 0.9 % Sodium Chloride 1,000 ML 999 ML IV ×2 (21:12→22:51)
[2023-10-10] MEDS: Lidocaine HCl Viscous 2 % 15 ML SOLUTION 5 ML MUCOUS MEM (21:35)
[2023-10-10] MEDS: Magnesium Hydrox/Alum Hydrox 30 ML ORAL.SUSP 15 ML PO (21:36)
[2023-10-10] MEDS: Prochlorperazine Edisylate 10 MG/2 ML VIAL IVPUSH (22:51)
[2023-10-10] MEDS: LORazepam 2 MG/ML VIAL IVPUSH (22:51)
[2023-10-11 00:44] VITALS: BP 160/76; PULSE 60; RESP 16; TEMP 37.1; O2SAT 100
== END 2023-10-11 00:55 | disposition home or self-care (01) ==
PROVIDERS: Nurse Practitioner Family; Emergency Provider Internal Medicine
DX: R10.13 Epigastric pain (principal); R11.2 Nausea with vomiting, unspecified; J45.909 Unspecified asthma, uncomplicated
CPT/HCPCS: 0241U; 80048; 80076; 81001; 83605; 83690; 85025; 96361; 96374; 96375; 96376; 99284; J0737; J2060; J2405